=== PATIENT | female | born 1940 | race Caucasian/White ===

== ENCOUNTER → 2016-11-20 | Outpatient (REF) | payer MEDICARE ==
[2016-11-20 15:06] LABS: CALCIUM LEVEL 10.2 MG/DL (8.8-10.2); CREATININE FOR GFR 1.42 MG/DL (0.55-1.02); GLOMERULAR FILTRATION RATE 38.2 (>39); POTASSIUM SERUM 3.8 MEQ/L (3.5-5.1)
== END ==
LOC: M SFHCLERA 11:22
PROVIDERS: ATTEND Family Medicine
DX: I50.20 Unspecified systolic (congestive) heart failure (principal)
CPT/HCPCS: 80048; G0463

== ENCOUNTER → 2017-05-29 | Outpatient (REF) | payer MEDICARE | LOC: M SFHCLERA 11:35 | PROVIDERS: ATTEND Family Medicine | DX: E11.51 Type 2 diabetes mellitus with diabetic peripheral angiopathy without gangrene (principal) | CPT/HCPCS: 83036; G0463 ==

== ENCOUNTER → 2017-07-26 | Outpatient (CLI) | payer MEDICARE ==
[~2017-07-26] MED LIST: LIDOCAINE 1% MDV 20ML VIAL As Ordered ONE
--- NOTE | 2017-07-26 10:25 | REP ---
ULTRASOUND LEFT NECK SOFT TISSUES: Ultrasound of the left neck soft tissues performed in the submandibular region. Adjacent to the submandibular gland is a mildly prominent lymph node measuring 1.8 x 0.7 x 1.0 cm. Lymph node is subsequently biopsied using ultrasound guidance. Signed by Agustín Page MD 07/26/2017 04:57 P
--- NOTE | 2017-07-29 17:59 | REP ---
ULTRASOUND-GUIDED LEFT NECK LYMPH NODE BIOPSY The procedure was performed under the direct supervision of Dr. Page The patient has a history of a left neck lymph node measuring 1.6 x 1.0 cm seen on a previous ultrasound from [facility] performed on 06/13/2017. The risks and benefits of the procedure were explained to the patient and informed consent was obtained. The left neck lymph node was localized using ultrasound guidance. The skin was prepped and draped in a sterile fashion. 1% Xylocaine was used as a local anesthetic. Using ultrasound guidance eight fine-needle aspirations were obtained using 25 gauge needles. The patient tolerated the procedure well and there were no immediate complications. After the appropriate amount of monitored convalescence the patient was discharged from the department. Reviewed by MINGO Wills 07/26/2017 04:55 PSigned by Agustín Page MD 07/29/2017 05:50 P
== END ==
LOC: M RADPRO 08:37
PROVIDERS: ATTEND Nurse Practitioner Family
DX: R59.0 Localized enlarged lymph nodes (principal); Z85.850 Personal history of malignant neoplasm of thyroid; Z95.810 Presence of automatic (implantable) cardiac defibrillator; Z92.3 Personal history of irradiation; Z88.5 Allergy status to narcotic agent; Z79.899 Other long term (current) drug therapy

== ENCOUNTER → 2018-01-20 | Outpatient (REF) | payer MEDICARE | LOC: M SFHCLERA 13:48 | DX: E11.51 Type 2 diabetes mellitus with diabetic peripheral angiopathy without gangrene (principal); Z53.8 Procedure and treatment not carried out for other reasons ==

== ENCOUNTER → 2018-07-07 | Outpatient (REF) | payer MEDICARE ==
[2018-07-07 20:31] LABS: APPEARANCE, URINE CLEAR (CLEAR); BACTERIA, URINE AUTO NEGATIVE (NEGATIVE); BASO # 0.1 10^3/uL (0.0-0.2); BASO % 0.8 % (0.0-1.0); BILIRUBIN, URINE AUTO NEGATIVE (NEGATIVE); BLOOD, URINE BLOOD NEGATIVE (NEGATIVE); COLOR, URINE YELLOW (YELLOW); EOS # 0.2 10^3/uL (0.0-0.50); EOS % 2.7 % (0.0-3.0); GLUCOSE, URINE (UA) AUTO NEGATIVE (NEGATIVE); HEMATOCRIT 39.7 % (36.0-47.0); HEMOGLOBIN 12.6 g/dl (12.0-15.5); IMMATURE GRANULOCYTE % 0.6 % (0-3.0); KETONE, URINE AUTO NEGATIVE (NEGATIVE); LEUKOCYTE ESTERASE, URINE AUTO NEGATIVE (NEGATIVE); LYMPH # 1.5 10^3/uL (1.5-4.5); LYMPH % 23.5 % (24.0-44.0); MEAN CORPUSCULAR HEMOGLOBIN 29.5 pg (27.0-33.0); MEAN CORPUSCULAR HGB CONC 31.7 g/dl (32.0-36.5); MONO # 0.6 10^3/uL (0.0-0.8); MONO % 9.8 % (0.0-5.0); NEUTROPHILS # 4.1 10^3/uL (1.8-7.7); NEUTROPHILS % 62.6 % (36.0-66.0); NITRITE, URINE AUTO NEGATIVE (NEGATIVE); PLATELET COUNT, AUTOMATED 157 10^3/uL (150-450); PROTEIN, URINE AUTO NEGATIVE (NEGATIVE); RBC, URINE AUTO 9 /HPF (0-3); RED BLOOD COUNT 4.27 10^6/uL (4.00-5.40); RED CELL DISTRIBUTION WIDTH 15.7 % (11.5-14.5); SPECIFIC GRAVITY URINE AUTO 1.008 (1.002-1.035); SQUAMOUS EPITHELIAL CELL UR AU 1 /HPF (0-6); UROBILINOGEN, URINE AUTO 0.2 mg/dL (0.0-2.0); WBC, URINE AUTO 3 /HPF (0-3); WHITE BLOOD COUNT 6.6 10^3/uL (4.0-10.0)
[2018-07-07 20:39] LABS: ALBUMIN 3.3 GM/DL (3.2-5.2); ALBUMIN/GLOBULIN RATIO 1.03 (1.00-1.93); ALKALINE PHOSPHATASE 55 U/L (45-117); ALT/SGPT 18 U/L (12-78); ANION GAP 7 MEQ/L (8-16); AST/SGOT 17 U/L (7-37); BILIRUBIN,TOTAL 0.4 MG/DL (0.2-1.0); BLOOD UREA NITROGEN 62 MG/DL (7-18); CALCIUM LEVEL 9.6 MG/DL (8.8-10.2); CARBON DIOXIDE LEVEL 30 MEQ/L (21-32); CHLORIDE LEVEL 102 MEQ/L (98-107); CREATININE FOR GFR 2.49 MG/DL (0.55-1.30); GLOMERULAR FILTRATION RATE 19.9 (>39); GLUCOSE, FASTING 269 MG/DL (70-100); POTASSIUM SERUM 4.5 MEQ/L (3.5-5.1); SODIUM LEVEL 139 MEQ/L (136-145); TOTAL PROTEIN 6.5 GM/DL (6.4-8.2)
== END ==
LOC: M SFHCLERA 12:57
DX: E89.0 Postprocedural hypothyroidism (principal); N30.80 Other cystitis without hematuria; N18.3 Chronic kidney disease, stage 3 (moderate)
CPT/HCPCS: 84443

== ENCOUNTER 2018-07-24 17:54 | Emergency (ER) | payer MEDICARE | END 2018-07-24 18:39 | disposition home or self-care (01) | LOC: M ED 17:54 | DX: T82.898A Other specified complication of vascular prosthetic devices, implants and grafts, initial encounter (principal); Y92.9 Unspecified place or not applicable; Y93.9 Activity, unspecified; I51.9 Heart disease, unspecified; E11.9 Type 2 diabetes mellitus without complications; I10 Essential (primary) hypertension; J30.2 Other seasonal allergic rhinitis; Z79.01 Long term (current) use of anticoagulants; Z79.4 Long term (current) use of insulin; Z79.899 Other long term (current) drug therapy; Z88.6 Allergy status to analgesic agent; Z88.5 Allergy status to narcotic agent ==

== ENCOUNTER 2018-07-27 13:56 | Inpatient (IN) | payer MEDICARE, MEDICAID ==
[2018-07-27] MEDS: NS 1,000 ML IV (14:38)
[2018-07-27 14:41] LABS: BASO % 0.4 % (0.0-1.0); EOS # 0.1 10^3/uL (0.0-0.50); HEMATOCRIT 32.6 % (36.0-47.0); HEMOGLOBIN 10.7 g/dl (12.0-15.5); IMMATURE GRANULOCYTE % 0.5 % (0-3.0); LYMPH # 0.9 10^3/uL (1.5-4.5); LYMPH % 11.1 % (24.0-44.0); MEAN CORPUSCULAR HEMOGLOBIN 29.9 pg (27.0-33.0); MEAN CORPUSCULAR HGB CONC 32.8 g/dl (32.0-36.5); MEAN CORPUSCULAR VOLUME 91.1 fl (80.0-96.0); MONO # 0.8 10^3/uL (0.0-0.8); MONO % 10.3 % (0.0-5.0); NEUTROPHILS # 6.3 10^3/uL (1.8-7.7); NEUTROPHILS % 76.7 % (36.0-66.0); PLATELET COUNT, AUTOMATED 146 10^3/uL (150-450); RED BLOOD COUNT 3.58 10^6/uL (4.00-5.40); RED CELL DISTRIBUTION WIDTH 15.9 % (11.5-14.5); WHITE BLOOD COUNT 8.2 10^3/uL (4.0-10.0)
[2018-07-27 15:00] LABS: INR 1.83; PROTHROMBIN TIME 21.5 SECONDS (12.1-14.4)
[2018-07-27 15:05] LABS: ALBUMIN 3.2 GM/DL (3.2-5.2); ALKALINE PHOSPHATASE 61 U/L (45-117); ALT/SGPT 12 U/L (12-78); ANION GAP 7 MEQ/L (8-16); AST/SGOT 11 U/L (7-37); BILIRUBIN,DIRECT 0.2 MG/DL (0.0-0.2); BILIRUBIN,TOTAL 0.6 MG/DL (0.2-1.0); BLOOD UREA NITROGEN 32 MG/DL (7-18); CALCIUM LEVEL 10.4 MG/DL (8.8-10.2); CARBON DIOXIDE LEVEL 29 MEQ/L (21-32); CHLORIDE LEVEL 104 MEQ/L (98-107); CK-MB VALUE MASS < 1.0 NG/ML (<3.6); CPK CREATINE PHOSPHOKINASE 47 U/L (26-192); CREATININE FOR GFR 2.51 MG/DL (0.55-1.30); GLOMERULAR FILTRATION RATE 19.7 (>39); GLUCOSE, FASTING 341 MG/DL (70-100); MAGNESIUM LEVEL 2.3 MG/DL (1.8-2.4); MB/CK RELATIVE INDEX 2.13 (< OR =4); SODIUM LEVEL 140 MEQ/L (136-145); TOTAL PROTEIN 7.2 GM/DL (6.4-8.2); TROPONIN I 0.03 NG/ML (< 0.10)
[2018-07-27] MEDS: HumuLIN R (REGULAR) INSULIN (NovoLIN R) **100U/ML** PER UNIT IV (15:24)
[2018-07-27] MEDS: ATORVASTATIN 20 MG TAB PO (19:06)
[2018-07-27] MEDS: AMIODARONE HCL 150 MG in APPROPRIATE DILUENT 1 EA IV ×2 (19:07→22:47)
[2018-07-27] MEDS ORDERED: CARVedilol 12.5 MG TAB PO (21:00)
[2018-07-27] MEDS ORDERED: HumaLOG INSULIN (NovoLOG) PER UNIT SC (21:00)
[2018-07-27] MEDS ORDERED: ATORVASTATIN 20 MG TAB PO (21:00)
[2018-07-27] MEDS ORDERED: TORSEMIDE 10 MG TABLET PO (21:00)
[2018-07-27] MEDS: CARVedilol 12.5 MG TAB PO (21:51)
[2018-07-27 22:17] LABS: BEDSIDE GLUCOSE 265 MG/DL (83-110)
[2018-07-27] MEDS: FUROSEMIDE 20 MG/2 ML VIAL (J1940) IV (22:47)
[2018-07-27] MEDS ORDERED: GLUCAGON FOR INJ 1 MG VIAL (J1610) SC ×2 (23:30→23:45)
[2018-07-27] MEDS ORDERED: GLUCOSE 4 GM CHEW TABLET PO ×2 (23:30→23:45)
[2018-07-27] MEDS ORDERED: DEXTROSE 50% 50 ML SYRINGE IV ×2 (23:30→23:45)
[2018-07-27] MEDS: HumaLOG INSULIN (NovoLOG) PER UNIT SC (23:45)
[2018-07-28] MEDS: TAZOBACTAM IV
[2018-07-28] MEDS: PIPERACILLIN IV
[2018-07-28] MEDS: LEVEMIR (INSULIN DETEMIR) 1 UNITS/0.01ML SC ×2 (00:20→08:43)
[2018-07-28] MEDS: APIXABAN 5 MG TAB (ELIQUIS) PO ×2 (00:20→08:42)
[2018-07-28] MEDS: HYDROXYCHLOROQUINE 200 MG TAB PO ×2 (00:50→08:42)
[2018-07-28] MEDS: MIRTAZAPINE 7.5MG PER 1/2 TABLET PO (00:50)
[2018-07-28] MEDS: FUROSEMIDE 20 MG/2 ML VIAL (J1940) IV (01:05)
[2018-07-28] MEDS: NITROGLYCERIN 2% OINT 1 GM *U/D* PKT TOP ×3 (01:06→12:09)
[2018-07-28] MEDS: VANCOMYCIN ORAL SOL 250MG/5ML ORAL SYRINGE PO ×3 (01:06→12:06)
[2018-07-28 01:08] LABS: CPK CREATINE PHOSPHOKINASE 36 U/L (26-192); MB/CK RELATIVE INDEX 3.06 (< OR =4); NT-PRO BNP 13674 PG/ML (<450); TROPONIN I 0.03 NG/ML (< 0.10)
[2018-07-28 04:24] LABS: ANION GAP 7 MEQ/L (8-16); BLOOD UREA NITROGEN 32 MG/DL (7-18); CALCIUM LEVEL 9.8 MG/DL (8.8-10.2); CARBON DIOXIDE LEVEL 27 MEQ/L (21-32); CHLORIDE LEVEL 105 MEQ/L (98-107); CREATININE FOR GFR 2.46 MG/DL (0.55-1.30); GLOMERULAR FILTRATION RATE 20.1 (>39); GLUCOSE, FASTING 315 MG/DL (70-100); POTASSIUM SERUM 4.2 MEQ/L (3.5-5.1); SODIUM LEVEL 139 MEQ/L (136-145)
[2018-07-28] MEDS: LEVOTHYROXINE 137MCG TABLET (0.137MG) PO (06:18)
[2018-07-28] MEDS ORDERED: HumaLOG INSULIN (NovoLOG) PER UNIT SC (07:30)
[2018-07-28] MEDS: HumaLOG INSULIN (NovoLOG) PER UNIT SC ×2 (08:39→12:10)
[2018-07-28] MEDS: ATORVASTATIN 20 MG TAB PO (08:39)
[2018-07-28] MEDS: ALLOPURINOL 100 MG TAB PO (08:39)
[2018-07-28] MEDS: CARVedilol 12.5 MG TAB PO (08:41)
[2018-07-28] MEDS: MAGNESIUM OXIDE 400 MG TAB (MAG-OX) PO (08:42)
[2018-07-28] MEDS: TORSEMIDE 10 MG TABLET PO (08:42)
[2018-07-28] MEDS: GABAPENTIN 100 MG CAP PO (08:42)
[2018-07-28] MEDS: AMIODARONE 200 MG TAB (PACERONE) PO (08:43)
[2018-07-28] MEDS ORDERED: AMIODARONE 200 MG TAB (PACERONE) PO (09:00)
[2018-07-28] MEDS ORDERED: SPIRONOLACTONE 25 MG TAB PO (09:00)
[2018-07-28] MEDS ORDERED: AMIODARONE HCL 150 MG/100 ML PREMIXED BAG (NEXTERONE) As Ordered (09:17)
[2018-07-28] MEDS: AMIODARONE HCL 150 MG in APPROPRIATE DILUENT 1 EA IV (09:25)
[2018-07-28 10:36] LABS: ESTIMATED AVERAGE GLUCOSE 214 MG/DL (60-110); HEMOGLOBIN A1c 9.1 %
[2018-07-28 11:37] LABS: BEDSIDE GLUCOSE 330 MG/DL (83-110)
[2018-07-28] MEDS: LACTOBACILLUS ACIDOPHILUS CAP (BACID) PO (13:51)
== END 2018-07-28 16:57 | disposition short-term general hospital (02) | DRG 309 ==
LOC: M ED 13:56 → M ED INP 18:24 → M ICU 21:25
DX: I47.2 Ventricular tachycardia (principal); I42.0 Dilated cardiomyopathy; I13.0 Hypertensive heart and chronic kidney disease with heart failure and stage 1 through stage 4 chronic kidney disease, or unspecified chronic kidney disease; I50.42 Chronic combined systolic (congestive) and diastolic (congestive) heart failure; N18.4 Chronic kidney disease, stage 4 (severe); I48.0 Paroxysmal atrial fibrillation; E11.22 Type 2 diabetes mellitus with diabetic chronic kidney disease; J44.9 Chronic obstructive pulmonary disease, unspecified; I49.01 Ventricular fibrillation; E78.5 Hyperlipidemia, unspecified; M19.90 Unspecified osteoarthritis, unspecified site; E66.9 Obesity, unspecified; I25.2 Old myocardial infarction; F32.9 Major depressive disorder, single episode, unspecified; I25.10 Atherosclerotic heart disease of native coronary artery without angina pectoris; K57.90 Diverticulosis of intestine, part unspecified, without perforation or abscess without bleeding; E89.0 Postprocedural hypothyroidism; Z90.49 Acquired absence of other specified parts of digestive tract; Z95.810 Presence of automatic (implantable) cardiac defibrillator; Z88.5 Allergy status to narcotic agent; Z88.6 Allergy status to analgesic agent; Z79.01 Long term (current) use of anticoagulants; Z79.4 Long term (current) use of insulin; Z79.899 Other long term (current) drug therapy; Z68.32 Body mass index [BMI] 32.0-32.9, adult

== ENCOUNTER → 2018-08-07 | Outpatient (REF) | payer MEDICARE, MEDICAID ==
[~2018-08-07] MED LIST changes: +ALLO100T PO; +AMIO200T PO; +ATOR1TAB21; +ATOR1TAB21 PO; +CARV12.5 PO; +CARV25TA PO; +CRAN400C PO; +ELIQ5TAB PO; +GABA-1171 PO; +HYDR200T3 PO; +LEVE1INJ5; +LEVE1INJ5 SC; +LEVO137T2 PO; -LIDOCAINE 1% MDV 20ML VIAL As Ordered ONE; +MAGN400C PO; +MAGN400C2 PO; +MAGN400T; +MIRT1TAB PO; +MULTCAP PO; +NOVOINJ3; +NOVOINJ3 SC; +PIPER/TAZOBA; +REFRSOL OD; +SPIR-10 PO; +TORS10TA3; +TORS10TA3 PO; +TRAD5TAB PO; +VANC125C2; +VANC125C2 PO; +[UNRECOGNIZED DRUG - CODE] IV
== END ==
LOC: M SFHCLERA 11:22
PROVIDERS: ATTEND Family Medicine
DX: K57.92 Diverticulitis of intestine, part unspecified, without perforation or abscess without bleeding (principal)

== ENCOUNTER → 2018-10-13 | Outpatient (REF) | payer MEDICARE, MEDICAID ==
[2018-10-13 16:19] LABS: FREE T4 1.53 NG/DL (0.76-1.46); THYROID STIMULATING HORMONE 12.5 uIU/ML (0.358-3.740)
== END ==
LOC: M LABDRAW1 15:23
PROVIDERS: ATTEND Nurse Practitioner Family
DX: E89.0 Postprocedural hypothyroidism (principal)

== ENCOUNTER 2018-12-22 13:53 | Observation (INO) | payer MEDICARE ==
[2018-12-22] MEDS: HYDROXYCHLOROQUINE 200 MG TAB PO SCH (03:00)
[2018-12-22] MEDS: CARBAMIDE PEROXIDE 6.5% OTIC SOLN 15ML AU SCH (03:00)
[~2018-12-22 13:53] MED LIST changes: +ALBU83IN INH; +CETI10TA4 PO; +ELIQ2.5T PO; +MIRA3350 PO; +MIRT1TAB15 PO; -REFRSOL OD; +REFRSOL OU; +SYNT125T PO; -VANC125C2; -VANC125C2 PO; +VANC125C3; +VANC125C3 PO
[2018-12-22] MEDS ORDERED: DULC5TAB PO (14:07)
[2018-12-22 14:57] LABS: BASO # 0.1 10^3/uL (0.0-0.2); BASO % 0.8 % (0.0-1.0); HEMATOCRIT 38.4 % (36.0-47.0); HEMOGLOBIN 12.2 g/dl (12.0-15.5); LYMPH # 1.5 10^3/uL (1.5-4.5); LYMPH % 22.9 % (24.0-44.0); MEAN CORPUSCULAR HEMOGLOBIN 29.4 pg (27.0-33.0); MEAN CORPUSCULAR HGB CONC 31.8 g/dl (32.0-36.5); MEAN CORPUSCULAR VOLUME 92.5 fl (80.0-96.0); MONO # 0.7 10^3/uL (0.0-0.8); MONO % 10.1 % (0.0-5.0); NEUTROPHILS # 4.2 10^3/uL (1.8-7.7); NEUTROPHILS % 64.5 % (36.0-66.0); PLATELET COUNT, AUTOMATED 108 10^3/uL (150-450); RED BLOOD COUNT 4.15 10^6/uL (4.00-5.40); WHITE BLOOD COUNT 6.6 10^3/uL (4.0-10.0)
--- NOTE | 2018-12-22 15:21 | REP ---
Chest one-view HISTORY: chest pain Comparison: 07/27/2018 A minimal increase in interstitial markings is present in the lungs consistent with chronic interstitial change. The cardiac silhouette is enlarged. The pulmonary vasculature is normal in appearance. Catheter is present in the superior vena cava. A cardiac pacemaker is present. Impression: 1. Chronic interstitial change. 2. Cardiomegaly. Electronically Signed by Kris Triplett MD 12/22/2018 03:12 P
[2018-12-22 15:32] LABS: ALBUMIN 3.2 GM/DL (3.2-5.2); ALT/SGPT 44 U/L (12-78); BILIRUBIN,DIRECT < 0.1 MG/DL (0.0-0.2); BILIRUBIN,TOTAL 0.4 MG/DL (0.2-1.0); BLOOD UREA NITROGEN 57 MG/DL (7-18); CALCIUM LEVEL 9.3 MG/DL (8.8-10.2); CARBON DIOXIDE LEVEL 29 MEQ/L (21-32); CHLORIDE LEVEL 106 MEQ/L (98-107); CPK CREATINE PHOSPHOKINASE 89 U/L (26-192); CREATININE FOR GFR 4.74 MG/DL (0.55-1.30); GLOMERULAR FILTRATION RATE 9.5 (>39); GLUCOSE, FASTING 118 MG/DL (70-100); MAGNESIUM LEVEL 2.4 MG/DL (1.8-2.4); MB/CK RELATIVE INDEX 3.37 (< OR =4); POTASSIUM SERUM 6.3 MEQ/L (3.5-5.1); SODIUM LEVEL 138 MEQ/L (136-145); TOTAL PROTEIN 5.8 GM/DL (6.4-8.2); TROPONIN I 0.04 NG/ML (< 0.10)
--- NOTE | 2018-12-22 15:35 | REP ---
CT Head without contrast HISTORY: Dizziness COMPARISON: 07/27/2018 Areas of decreased attenuation are present in the periventricular white matter. This represents small-vessel ischemic disease. There is no intraparenchymal hemorrhage, acute infarct, mass or midline shift. The ventricular system and cortical sulci are dilated consistent with minimal volume loss. There is no extra cerebral collection. There is an old fracture of the left occipital bone. There is no acute fracture. The visualized sinuses are clear. IMPRESSION: 1. Small vessel ischemic disease. 2. Minimal volume loss. Electronically Signed by Kris Triplett MD 12/22/2018 03:26 P
--- NOTE | 2018-12-22 15:41 | ECGEPIP ---
Stationary ECG Study [facility] - ED Test Date: 2018-12-22 Pat Name: DARIELA LUNDBERG Department: Room: - Gender: F Tube Roller: : 1940 Requested By: ALLEY GILLIAM Order Number: [id number] Reading MD: Vilma Mccullough Measurements Intervals Frannie Rate: 80 P: 208 NH: 169 QRS: -77 QRSD: 205 T: 114 QT: 523 QTc: 603 Interpretive Statements ELECTRONIC ATRIAL PACEMAKER ELECTRONIC VENTRICULAR PACEMAKER ABNORMAL RHYTHM ECG Electronically Signed On 12-22-2018 15:41:11 EDT by Vilma Mccullough
[2018-12-22 16:29] LABS: FREE T4 1.23 NG/DL (0.76-1.46)
[2018-12-22] MEDS ORDERED: KEFL500C17 PO ×2 (16:33→20:20)
[2018-12-22] MEDS ORDERED: DEBR6.5S4 OTIC (16:33)
[2018-12-22] MEDS ORDERED: NS 1,000 ML IV SCH (19:15)
[2018-12-22] MEDS ORDERED: PATIROMER SORBITEX CALCIUM 8.4 GM POWDER PACKET (VELTASSA) PO ONE ×3 (19:15→23:00)
--- NOTE | 2018-12-22 19:15 | ED PDOC ---
Post-Departure Follow-Up Dr Anders called requesting pt to be admitted to hospital due to not getting patient ride to outpatient dialysis in time. requests pt receive 30 GM Kayexalate and NS at 50ml/hr. Calling hospitalist to have patient admitted. Kayexalate not available 8.4 GM Veltessa ordered in replacement. Hospitalist consulted and will see pt for admission. ALLEY JONP December 22, 2018 19:15
[2018-12-22] MEDS ORDERED: DEBR6.5S4 OU (20:15)
[2018-12-22] MEDS ORDERED: VENTAER INH (20:17)
[2018-12-22] MEDS ORDERED: BISACODYL 5 MG TAB PO PRN (21:00)
[2018-12-22] MEDS ORDERED: ATORVASTATIN 20 MG TAB PO SCH (21:00)
[2018-12-22] MEDS ORDERED: ACETAMINOPHEN TAB 650MG DOSE (2X325MG) PO PRN (21:00)
[2018-12-22] MEDS ORDERED: MIRALAX *UNIT DOSE* 17GM PACKET PO PRN (21:00)
--- NOTE | 2018-12-22 21:08 | HPEPDOC ---
General Date of Admission Attending Physician: LOTUS RIVERA MD Chief Complaint The patient is a 78-year-old female admitted with a reason for visit of Low Bp. Source: RN/MD Exam Limitations: Hard of hearing Timing/Duration: 24 hours Severity: Moderate Associated Symptoms: Weakness, Dizziness History of Present Illness Patient is a 78-year-old female, past medical history significant for ca rdiomyopathy, chronic systolic heart failure S/P AICD, ESRD on hemodialysis Saturday, Wednesdays and Fridays who was brought to the hospital after she was found to be hypotensive at home with a systolic blood pressure of 88 with complaints of dizziness. In the emergency room, urinalysis was abnormal for leukoesterase 3+, turbid- appearing urine with a high WBC. Potassium level elevated at 6.3. Initial plan was to send patient straight to hemodialysis center after treatment of UTI, given markedly elevated potassium level. However, due to logistics. Patient was unable to make it to the outpatient hemodialysis center on time. The decision was therefore made to monitor patient overnight, treat hyperkalemia with a plan to proceed with hemodialysis in the morning. On evaluation of patient, she complained of persisting dizziness. In the emergency room, she was treated with a bolus of normal saline with improvement of her blood pressure to systolic of low 100s. She also complained of dysuria. Patient denied any chest pain, shortness of breath, nausea, vomiting, abdominal pain. Home Medications Scheduled Allopurinol (Allopurinol) 100 Mg Tab, 100 MG PO DAILY, (Reported) Amiodarone HCl (Amiodarone HCl) 200 Mg Tab, 200 MG PO DAILY, (Reported) Apixaban (Eliquis) 2.5 Mg Tablet, 2.5 MG PO BID, (Reported) Atorvastatin Calcium (Atorvastatin Calcium) 20 Mg Tab, 20 MG PO QHS, (Reported) Carbamide Peroxide (Debrox) 15 Ml Drops, 1 DROP OU BID, (Reported) Carboxymethyl/Glycerin/Poly80 (Refresh Optive Advanced Drops) 1 Claudia Claudia, 1 DROP OU DAILY, (Reported) Carvedilol (Carvedilol) 12.5 Mg Tablet, 12.5 MG PO BID, (Reported) Cephalexin (Keflex) 500 Mg Capsule, 500 MG PO BID, (Reported) PATIENT HAS NOT PICKED UP FROM PHARMACY. TO TAKE X 7 DAYS. Cetirizine HCl (Cetirizine HCl) 10 Mg Tablet, 10 MG PO DAILY, (Reported) Gabapentin (Gabapentin) 100 Mg Cap, 100 MG PO DAILY, (Reported) Hydroxychloroquine Sulfate (Hydroxychloroquine Sulfate) 200 Mg Tab, 200 MG PO BID, (Reported) Insulin Aspart (Novolog Flexpen) 100 Unit/Ml Inj, 1 DOSE SC PC, (Reported) PER SLIDING SCALE Insulin Detemir (Levemir Flextouch) 100 Unit/Ml Inj, 15 UNIT SC BID, (Reported) PATIENT ADJUSTS TO 20 UNITS WHEN NEEDED Levothyroxine Sodium (Synthroid) 125 Mcg Tablet, 125 MCG PO DAILY, (Reported) Mirtazapine (Mirtazapine) 15 Mg Tab.rapdis, 7.5 MG PO QHS, (Reported) Multivitamin (Multivitamins) 1 Cap Cap, 1 CAP PO DAILY, (Reported) Scheduled PRN Albuterol Sulf (Albuterol Sulfate) 2.5 Mg/3 Ml Vial.neb, 2.5 MG INH Q6H PRN for SHORTNESS OF BREATH, (Reported) Albuterol Sulfate (Ventolin Hfa) 18 Gm Hfa.aer.ad, 2 PUFF INH Q4-6HP PRN for SHORTNESS OF BREATH, (Reported) Bisacodyl (Dulcolax) 5 Mg Tablet.dr, 5 MG PO ASDIRECTED PRN for CONSTIPATION, (Reported) Polyethylene Glycol 3350 (Miralax) 119 Gm Powder, 17 GM PO DAILY PRN for CONSTIPATION, (Reported) Allergies Coded Allergies: ENVIROMENTAL (Verified Allergy, Unknown, DUST, MILDEW, 07/27/18) TAPE (Unverified Allergy, Unknown, BLISTERS, 11/20/18) hydromorphone (Verified Adverse Reaction, Mild, ITCHING, 11/20/18) oxycodone (Verified Adverse Reaction, Mild, ITCHING, 11/20/18) Past Medical History Medical History Nonischemic cardiomyopathy Chronic systolic heart failure CAD Proximal atrial fibrillation End-stage renal disease Type 2 diabetes mellitus Gout Urethrorectal fistula Ventricular fibrillation COPD Hypertension Hyperlipidemia Surgical History -Cholecystectomy -Total hysterectomy -Right hip and ankle repair -Pacer ICD placement -Thyroidectomy -Fistula placement Family History Significant Family History: No pertinent family hx Social History Denies tobacco, alcohol, polysubstance abuse A-FIB/CHADSVASC A-FIB History Current/History of A-Fib/PAF?: Yes Current Oral Anticoagulant The: Yes Treatment Treatment ordered: Apixaban Review of Systems Other systems Limited review of systems was completed due to patient's deafness Physical Examination Other physical findings GENERAL: NAD SKIN : Warm, dry intact HEENT: Atraumatic, normocephalic, PERRL, moist mucous membrane CV: Regular rate and rhythm, S1S2, no JVD, BLE edema, distal pulses not palpable RESP: CTAB, no accessory muscle use noted ABDOMEN: BS+ non distended non tender MS: no joint deformities NEURO: Alert and oriented x 3, CN2-12 grossly intact PSYCH: no anxiety or agitation, appropriate mood and affect. Vital Signs Vital Signs Date Time Temp Pulse Resp B/P (MAP) Pulse Ox O2 Delivery O2 Flow Rate FiO2 12/22/18 19:25 97.1 79 14 107/68 (81) 99 Room Air Laboratory Data Labs 24H Laboratory Tests 2 12/22/18 14:37: Immature Granulocyte % (Auto) 1.7, White Blood Count 6.6, Red Blood Count 4.15, Hemoglobin 12.2, Hematocrit 38.4, Mean Corpuscular Volume 92.5, Mean Corpuscular Hemoglobin 29.4, Mean Corpuscular Hemoglobin Concent 31.8L, Red Cell Distribution Width 19.0H, Platelet Count 108L, Neutrophils (%) (Auto) 64.5, Lymphocytes (%) (Auto) 22.9L, Monocytes (%) (Auto) 10.1H, Eosinophils (%) (Auto) 0.0, Basophils (%) (Auto) 0.8, Neutrophils # (Auto) 4.2, Lymphocytes # (Auto) 1.5, Monocytes # (Auto) 0.7, Eosinophils # (Auto) 0.0, Basophils # (Auto) 0.1, Nucleated Red Blood Cells % (auto) 0.0, Anion Gap 3L, Glomerular Filtration Rate 9.5L, Calcium Level 9.3, Magnesium Level 2.4, Aspartate Amino Transf (AST/SGOT) 45H, Alanine Aminotransferase (ALT/SGPT) 44, Alkaline Phosphatase 99, Total Bilirubin 0.4, Direct Bilirubin < 0.1, Total Creatine Kinase 89, Creatine Kinase MB 3.0, Creatine Kinase MB Relative Index 3.37, Troponin I 0.04, Total Protein 5.8L, Albumin 3.2, Albumin/Globulin Ratio 1.23, Thyroid Stimulating Hormone (TSH) 34.500H, Free Thyroxine 1.23 12/22/18 15:08: Urine Color MAYE, Urine Appearance TURBIDH, Urine pH 5.0, Urine Specific [place] 1.016, Urine Protein 2+H, Urine Glucose (UA) NEGATIVE, Urine Ketones NEGATIVE, Urine Blood 1+H, Urine Nitrite NEGATIVE, Urine Bilirubin NEGATIVE, Urine Urobilinogen 0.2, Urine Leukocyte Esterase 3+H, Urine WBC (Auto) TNTCH, Urine RBC (Auto) 91H, Urine Hyaline Casts (Auto) 26, Urine Bacteria (Auto) 2+H, Urine Squamous Epithelial Cells 9, Urine Yeast-Like Cells (Auto) LARGEH, Urine Sperm (Auto) CBC/BMP Laboratory Tests 12/22/18 14:37 Red Blood Count 4.15, Mean Corpuscular Volume 92.5, Mean Corpuscular Hemoglobin 29.4, Mean Corpuscular Hemoglobin Concent 31.8 L, Red Cell Distribution Width 19.0 H, Neutrophils (%) (Auto) 64.5, Lymphocytes (%) (Auto) 22.9 L, Monocytes (%) (Auto) 10.1 H, Eosinophils (%) (Auto) 0.0, Basophils (%) (Auto) 0.8, Neutrophils # (Auto) 4.2, Lymphocytes # (Auto) 1.5, Monocytes # (Auto) 0.7, Eosinophils # (Auto) 0.0, Basophils # (Auto) 0.1 Microbiology Microbiology 12/22/18 Urine Culture, Received Pending Assessment/Plan Hyperkalemia -In a patient with end-stage renal disease on hemodialysis -Hemodialysis days are Mondays, Wednesdays, Saturday -Has not had hemodialysis since Saturday -Discussed with patient's oracle reports developer for input -Recommend patient receive 16.8 g Veltassa, now with repeat dosing in 6 hours -Monitor potassium levels for response to therapy -Hemodialysis in the a.m. End-stage renal disease -Continue hemodialysis management per nephrology -Renal diet -Fluid restriction Urinary tract infection -Continue antibiotic therapy initiated in the emergency room -Follow culture findings Paroxysmal atrial fibrillation -Currently on anticoagulation therapy-continue -Rate is controlled -Admit with telemetry monitoring due to hyperkalemia and underlying comorbidities Hypertension -Currently presenting with hypotension -Hold coreg and other hypertensive medications except antiarrhythmics -Patient is S/P bolus with improvement of her blood pressure DVT/GI prophylaxis -fully anticoagulated on eliquis -Proton pump inhibitor Plan / VTE VTE Prophylaxis Ordered?: Yes MARGARET BOYER December 22, 2018 21:08
[2018-12-22] MEDS ORDERED: GLUCAGON FOR INJ 1 MG VIAL (J1610) SC PRN (21:30)
[2018-12-22] MEDS ORDERED: GLUCOSE 4 GM CHEW TABLET PO PRN (21:30)
[2018-12-22] MEDS ORDERED: DEXTROSE 50% 50 ML SYRINGE IV PRN (21:30)
[2018-12-22 23:15] VITALS: BP 118/74
[2018-12-22] MEDS: APIXABAN 2.5 MG TAB (ELIQUIS) PO SCH (23:58)
[2018-12-22] MEDS: CEPHALEXIN 500 MG CAP PO SCH (23:59)
[2018-12-23 00:04] LABS: ALBUMIN 2.9 GM/DL (3.2-5.2); BILIRUBIN,TOTAL 0.3 MG/DL (0.2-1.0); CALCIUM LEVEL 9.1 MG/DL (8.8-10.2); CREATININE FOR GFR 4.77 MG/DL (0.55-1.30); GLOMERULAR FILTRATION RATE 9.4 (>39); TOTAL PROTEIN 6.2 GM/DL (6.4-8.2)
[2018-12-23] MEDS ORDERED: PATIROMER SORBITEX CALCIUM 8.4 GM POWDER PACKET (VELTASSA) PO ONE (05:00)
[2018-12-23 06:00] VITALS: BP 110/65
[2018-12-23] MEDS ORDERED: LEVOTHYROXINE 125MCG TABLET (0.125MG) PO SCH (06:00)
[2018-12-23 06:06] LABS: HEMATOCRIT 37.9 % (36.0-47.0); HEMOGLOBIN 11.8 g/dl (12.0-15.5); MEAN CORPUSCULAR HEMOGLOBIN 28.6 pg (27.0-33.0); MEAN CORPUSCULAR HGB CONC 31.1 g/dl (32.0-36.5); MEAN CORPUSCULAR VOLUME 91.8 fl (80.0-96.0); PLATELET COUNT, AUTOMATED 104 10^3/uL (150-450); RED BLOOD COUNT 4.13 10^6/uL (4.00-5.40); WHITE BLOOD COUNT 6.2 10^3/uL (4.0-10.0)
[2018-12-23 06:29] LABS: ALBUMIN 2.9 GM/DL (3.2-5.2); BILIRUBIN,TOTAL 0.3 MG/DL (0.2-1.0); CALCIUM LEVEL 9.4 MG/DL (8.8-10.2); CREATININE FOR GFR 4.75 MG/DL (0.55-1.30); GLOMERULAR FILTRATION RATE 9.4 (>39); POTASSIUM SERUM 5.1 MEQ/L (3.5-5.1); TOTAL PROTEIN 5.7 GM/DL (6.4-8.2)
[2018-12-23] MEDS: APIXABAN 2.5 MG TAB (ELIQUIS) PO SCH (06:58)
[2018-12-23] MEDS: CEPHALEXIN 500 MG CAP PO SCH (06:59)
[2018-12-23] MEDS: HYDROXYCHLOROQUINE 200 MG TAB PO SCH (06:59)
[2018-12-23] MEDS: CARBAMIDE PEROXIDE 6.5% OTIC SOLN 15ML AU SCH (06:59)
[2018-12-23] MEDS: HumaLOG INSULIN (NovoLOG) PER UNIT SC SCH ×2 (07:30→12:00)
[2018-12-23] MEDS ORDERED: AMIODARONE 200 MG TAB (PACERONE) PO SCH (09:00)
[2018-12-23] MEDS ORDERED: ALLOPURINOL 100 MG TAB PO SCH (09:00)
[2018-12-23] MEDS ORDERED: GABAPENTIN 100 MG CAP PO SCH (09:00)
[2018-12-23] MEDS ORDERED: CETIRIZINE (ZyrTEC) 10 MG TAB PO SCH (09:00)
[2018-12-23] MEDS ORDERED: HEPARIN 1,000 UNITS/ML 10ML VIAL (FOR RADIOLOGY& DIALYSIS ONLY) IV ONE (09:30)
[2018-12-23] MEDS ORDERED: HEPARIN 1,000 UNITS/ML 10ML VIAL (FOR RADIOLOGY& DIALYSIS ONLY) XX ONE (09:30)
[2018-12-23] MEDS ORDERED: FLUCONAZOLE 100 MG TAB PO ONE (11:30)
--- NOTE | 2018-12-23 11:36 | IPN ---
DATE OF VISIT: 12/23/2018 Mrs. Joel is seen this morning during dialysis. She was admitted last evening due to dizziness, generalized weakness, and hyperkalemia. Her potassium level was 6.4, and she was treated with Veltassa through the night. She is still feeling very weak and is being dialyzed this morning due to hyperkalemia. Her potassium level has already come down to 5.1. She missed her dialysis treatment yesterday. On physical examination, temperature 97.4 degrees Fahrenheit, heart rate 82 per minute, and respiratory rate 18 per minute. Blood pressure 110/65 mmHg and oxygen saturation 94% on 2 liters oxygen. Head is atraumatic. She has kyphosis of her neck and upper chest. Neck veins are difficult to be assessed. Heart sounds are regular. Lungs sound clear to auscultation. Abdomen: Soft and nontender, and bowel sounds are present. Extremities: Without any cyanosis or clubbing. Lower extremity edema is 2+. Today's laboratories show: Sodium 137, potassium 5.1, CO2 27, BUN 58, and creatinine 4.75. WBC count is 6.2, hemoglobin 11.8, and hematocrit 37.9. Urinalysis showed 3+ leukocyte esterase, too numerous to count WBCs, and 91 RBCs. PROBLEMS: 1. End-stage renal disease. The patient is being dialyzed this morning, and we are trying to remove about 1 liter of fluid as tolerated. Her blood pressure is still borderline low. 2. Hyperkalemia. She was treated with medications through the night and received two doses of Veltassa. Her potassium level is already down to 5.1. We are using 2.0 mEq potassium bath for dialysis today. 3. Hypotension. I am concerned about the possibility of urinary tract infection (UTI) contributing to her hypotension. I would recommend to treat her with appropriate antibiotics. She has been started on Keflex 500 mg twice a day pending urine culture. 4. Congestive heart failure. Her volume status is decompensated, but we are unable to remove fluid aggressively due to low blood pressure. We will see how she does with the next dialysis treatment.
--- NOTE | 2018-12-23 12:25 | IPNPDOC ---
Subjective Date Seen The patient was seen on 12/23/18. Subjective Chief Complaint/HPI Patient is comfortable, feeling better than previously. On admission General: Denies: ROS Unobtainable, Chills, Night Sweats, Fatigue, Malaise, Normal Appetite, Other Symptoms Constitutional: Denies: Chills, Fever, Malaise, Night Sweats, Weakness, Fatigue, Weight Loss, Lethargy, Other Eyes: Denies: Pain, Vision change, Conjunctivae inflammation, Eyelid inflammation, Redness, Other ENT: Denies: Head Aches, Ear Pain, Dysphagia, Sinus Congestion, Post Nasal Drip, Sore Throat, Epistaxis, Other Symptoms Skin: Denies: Rash, Lesions, Jaundice, Bruising, Itching, Dry, Breakdown, Nail Changes, Other Pulmonary: Denies: Dyspnea, Cough, Pleuritic Chest Pain, Other Symptoms Cardiovascular: Denies: Chest Pain, Palpitations, Orthopnea, Paroxysmal Noc. Dyspnea, Edema, Lt Headedness, Other Symptoms Gastrointestinal: Denies: Nausea, Vomiting, Abdominal Pain, Diarrhea, Consti pation, Melena, Hematochezia, Other Symptoms Genitourinary: Denies: Dysuria, Frequency, Incontinence, Hematuria, Retention, Other Symptoms Hematologic: Denies: Bruising, Bleeding Excessively, Petecchia, Purpura, Enlarged Lymph Nodes, Other Hematologic Endocrine: Denies: Polydipsia, Polyphagia, Polyuria, Heat Intolerance, Cold Intolerance, Other Endocrine Sx Musculoskeletal: Denies: Neck Pain, Back Pain, Shoulder Pain, Arm Pain, Hand Pain, Leg Pain, Foot Pain, Joint Pain, Muscle Pain, Spasms, Other Symptoms Neurological: Denies: Weakness, Numbness, Incoordination, Change in speech, Co nfusion, Seizures, Other Symptoms Psych: Denies: Mood Normal, Anxiety, Depression, Memory Issues, Thoughts of Self Harm, Anger, Thoughts of Harming Other, Other Psych Objective Physical Examination General Exam: Positive: Alert, Cooperative Eye Exam: Positive: PERRLA, Conjunctiva & lids normal Neck Exam: Positive: Supple, JVD Chest Exam: Positive: Clear to auscultation, Normal air movement Heart Exam: Positive: Rate Normal, Normal S1, Normal S2 Abdomen Exam: Positive: Normal bowel sounds, Soft Extremity Exam: Positive: Normal pulses Skin Exam: Positive: Nl turgor and temperature Neuro Exam: Positive: Normal Gait, Normal Speech Psych Exam: Positive: Mental status NL A-FIB/CHADSVASC A-FIB History Current/History of A-Fib/PAF?: No Assessment /Plan Problems (1) Hyperkalemia Status: Acute Problem Text: Corrected ON Scheduled for HD today (2) ESRD (end stage renal disease) on dialysis Status: Acute Problem Text: ESRD is scheduled today Acid. We'll discharge him with HD today Plan/VTE VTE Prophylaxis Ordered?: Yes VS, I&O, 24H, Fishbone Vital Signs/I&O Vital Signs Date Time Temp Pulse Resp B/P (MAP) Pulse Ox O2 Delivery O2 Flow Rate FiO2 12/23/18 06:00 97.4 82 18 110/65 (80) 94 12/22/18 21:15 Room Air I&O- Last 24 Hours up to 6 AM 12/23/18 06:00 Intake Total 540 ml Output Total 210 ml Balance 330 ml Laboratory Data 24H LABS Laboratory Tests 2 12/22/18 14:37: Immature Granulocyte % (Auto) 1.7, White Blood Count 6.6, Red Blood Count 4.15, Hemoglobin 12.2, Hematocrit 38.4, Mean Corpuscular Volume 92.5, Mean Corpuscular Hemoglobin 29.4, Mean Corpuscular Hemoglobin Concent 31.8L, Red Cell Distributi on Width 19.0H, Platelet Count 108L, Neutrophils (%) (Auto) 64.5, Lymphocytes (%) (Auto) 22.9L, Monocytes (%) (Auto) 10.1H, Eosinophils (%) (Auto) 0.0, Basophils (%) (Auto) 0.8, Neutrophils # (Auto) 4.2, Lymphocytes # (Auto) 1.5, Monocytes # (Auto) 0.7, Eosinophils # (Auto) 0.0, Basophils # (Auto) 0.1, Nucleated Red Blood Cells % (auto) 0.0, Anion Gap 3L, Glomerular Filtration Rate 9.5L, Calcium Level 9.3, Magnesium Level 2.4, Aspartate Amino Transf (AST/SGOT) 45H, Alanine Aminotransferase (ALT/SGPT) 44, Alkaline Phosphatase 99, Total Bilirubin 0.4, Direct Bilirubin < 0.1, Total Creatine Kinase 89, Creatine Kinase MB 3.0, Creatine Kinase MB Relative Index 3.37, Troponin I 0.04, Total Protein 5.8L, Albumin 3.2, Albumin/Globulin Ratio 1.23, Thyroid Stimulating Hormone (TSH) 34.500H, Free Thyroxine 1.23 12/22/18 15:08: Urine Color MAYE, Urine Appearance TURBIDH, Urine pH 5.0, Urine Specific [place] 1.016, Urine Protein 2+H, Urine Glucose (UA) NEGATIVE, Urine Ketones NEGATIVE, Urine Blood 1+H, Urine Nitrite NEGATIVE, Urine Bilirubin NEGATIVE, Urine Urobilinogen 0.2, Urine Leukocyte Esterase 3+H, Urine WBC (Auto) TNTCH, Urine RBC (Auto) 91H, Urine Hyaline Casts (Auto) 26, Urine Bacteria (Auto) 2+H, Urine Squamous Epithelial Cells 9, Urine Yeast-Like Cells (Auto) LARGEH, Urine Sperm (Auto) 12/22/18 23:17: Anion Gap 6L, Glomerular Filtration Rate 9.4L, Calcium Level 9.1, Aspartate Amino Transf (AST/SGOT) 25, Alanine Aminotransferase (ALT/SGPT) 37, Alkaline Phosphatase 100, Total Bilirubin 0.3, Total Protein 6.2L, Albumin 2.9L, Albumin/Globulin Ratio 0.88L, Blood Urea Nitrogen 57H, Creatinine 4.77H, Sodium Level 138, Potassium Level 6.0H, Chloride Level 103, Carbon Dioxide Level 29 12/23/18 05:37: Nucleated Red Blood Cells % (auto) 0.0, Anion Gap 7L, Glomerular Filtration Rate 9.4L, Calcium Level 9.4, Aspartate Amino Transf (AST/SGOT) 26, Alanine Aminotransferase (ALT/SGPT) 34, Alkaline Phosphatase 95, Total Bilirubin 0.3, Total Protein 5.7L, Albumin 2.9L, Albumin/Globulin Ratio 1.04, Blood Urea Nitrogen 58H, Creatinine 4.75H, Sodium Level 137, Potassium Level 5.1, Chloride Level 103, Carbon Dioxide Level 27 CBC/BMP Laboratory Tests 12/22/18 14:37 Red Blood Count 4.15, Mean Corpuscular Volume 92.5, Mean Corpuscular Hemoglobin 29.4, Mean Corpuscular Hemoglobin Concent 31.8 L, Red Cell Distribution Width 19.0 H, Neutrophils (%) (Auto) 64.5, Lymphocytes (%) (Auto) 22.9 L, Monocytes (%) (Auto) 10.1 H, Eosinophils (%) (Auto) 0.0, Basophils (%) (Auto) 0.8, Neutrophils # (Auto) 4.2, Lymphocytes # (Auto) 1.5, Monocytes # (Auto) 0.7, Eosinophils # (Auto) 0.0, Basophils # (Auto) 0.1 12/22/18 23:17 Calcium Level 9.1, Aspartate Amino Transf (AST/SGOT) 25, Alanine Aminotransferase (ALT/SGPT) 37, Alkaline Phosphatase 100, Total Bilirubin 0.3, Total Protein 6.2 L, Albumin 2.9 L 12/23/18 05:37 Red Blood Count 4.13, Mean Corpuscular Volume 91.8, Mean Corpuscular Hemoglobin 28.6, Mean Corpuscular Hemoglobin Concent 31.1 L, Red Cell Distribution Width 19.1 H, Calcium Level 9.4, Aspartate Amino Transf (AST/SGOT) 26, Alanine Aminotransferase (ALT/SGPT) 34, Alkaline Phosphatase 95, Total Bilirubin 0.3, Total Protein 5.7 L, Albumin 2.9 L Microbiology Microbiology 12/22/18 Urine Culture, Received Pending ZENAIDA BATES MD December 23, 2018 12:25
[2018-12-23] MEDS ORDERED: cefTRIAXone SOD 1 GM VIAL (J0696) IM SCH (12:30)
[2018-12-23 14:00] VITALS: BP 101/60
--- NOTE | 2018-12-23 14:39 | DS.PDOC ---
Discharge Summary General Date of Admission December 22, 2018 at 20:48 Date of Discharge 12/23/18 Attending Physician: ZENAIDA BATES MD Discharge Summary PROCEDURES PERFORMED DURING STAY: None. ADMITTING DIAGNOSES: 1. Hyperkalemia. DISCHARGE DIAGNOSES: 1. Hyperkalemia, end-stage renal disease on hemodialysis. COMPLICATIONS/CHIEF COMPLAINT: Hyperkalemia. HISTORY OF PRESENT ILLNESS: Patient is a 78-year-old female, past medical history significant for cardiomyopathy, chronic systolic heart failure S/P AICD, ESRD on hemodialysis Saturday, Wednesdays and Fridays who was brought to the hospital after she was found to be hypotensive at home with a systolic blood pressure of 88 with complaints of dizziness. In the emergency room, urinalysis was abnormal for leukoesterase 3+, turbid- appearing urine with a high WBC. Potassium level elevated at 6.3. Initial plan was to send patient straight to hemodialysis center after treatment of UTI, given markedly elevated potassium level. However, due to logistics. Patient was unable to make it to the outpatient hemodialysis center on time. The decision was therefore made to monitor patient overnight, treat hyperkale jeannine with a plan to proceed with hemodialysis in the morning. On evaluation of patient, she complained of persisting dizziness. In the emergency room, she was treated with a bolus of normal saline with improvement of her blood pressure to systolic of low 100s. She also complained of dysuria. Patient denied any chest pain, shortness of breath, nausea, vomiting, abdominal pain. . HOSPITAL COURSE: Patient was admitted with the diagnosis of hyperkalemia. She was started on K oxalate inpatient. Patient was admitted to observation. I'll double reason. Hyperkalemia was corrected with the above measures. Since patient had missed her dialysis. He was taken to hemodialysis unit and had that HD done. Patient is stable. No more dizziness. Blood pressure is stable she can be discharged back home and follow with a substance addiction coordinator as an outpatient. DISCHARGE MEDICATIONS: Please see below. ALLERGIES: Please see below. PHYSICAL EXAMINATION ON DISCHARGE: VITAL SIGNS: Please see below. GENERAL: Within normal limits HEENT: PERRLA NECK: Supple CARDIOVASCULAR EXAMINATION: S1, S2, regular RESPIRATORY EXAMINATION: Clear to A&P ABDOMINAL EXAMINATION:. Benign EXTREMITIES: No clubbing, cyanosis or edema SKIN: Normal NEUROLOGICAL EXAMINATION: , No deficit PSYCHIATRIC EXAMINATION: LABORATORY DATA: Please see below. IMAGING: As above PROGNOSIS: good ACTIVITY: As tolerated. DIET: Renal diet DISCHARGE PLAN: Home DISPOSITION: Home DISCHARGE INSTRUCTIONS: 1. As above. ITEMS TO FOLLOWUP ON ON OUTPATIENT: 1. As above. DISCHARGE CONDITION: Stable. TIME SPENT ON DISCHARGE: Greater than 35 minutes. Vital Signs/I&Os Vital Signs Date Time Temp Pulse Resp B/P (MAP) Pulse Ox O2 Delivery O2 Flow Rate FiO2 12/23/18 14:00 96.7 80 20 101/60 (74) 97 12/22/18 21:15 Room Air I&O- Last 24 Hours up to 6 AM 12/23/18 06:00 Intake Total 540 ml Output Total 210 ml Balance 330 ml Laboratory Data Labs 24H Laboratory Tests 2 12/22/18 14:37: Immature Granulocyte % (Auto) 1.7, White Blood Count 6.6, Red Blood Count 4.15, Hemoglobin 12.2, Hematocrit 38.4, Mean Corpuscular Volume 92.5, Mean Corpuscular Hemoglobin 29.4, Mean Corpuscular Hemoglobin Concent 31.8L, Red Cell Distribution Width 19.0H, Platelet Count 108L, Neutrophils (%) (Auto) 64.5, Lymphocytes (%) (Auto) 22.9L, Monocytes (%) (Auto) 10.1H, Eosinophils (%) (Auto) 0.0, Basophils (%) (Auto) 0.8, Neutrophils # (Auto) 4.2, Lymphocytes # (Auto) 1.5, Monocytes # (Auto) 0.7, Eosinophils # (Auto) 0.0, Basophils # (Auto) 0.1, Nucleated Red Blood Cells % (auto) 0.0, Anion Gap 3L, Glomerular Filtration Rate 9.5L, Calcium Level 9.3, Magnesium Level 2.4, Aspartate Amino Transf (AST/SGOT) 45H, Alanine Aminotransferase (ALT/SGPT) 44, Alkaline Phosphatase 99, Total Bilirubin 0.4, Direct Bilirubin < 0.1, Total Creatine Kinase 89, Creatine Kinase MB 3.0, Creatine Kinase MB Relative Index 3.37, Troponin I 0.04, Total Protein 5.8L, Albumin 3.2, Albumin/Globulin Ratio 1.23, Thyroid Stimulating Hormone (TSH) 34.500H, Free Thyroxine 1.23 12/22/18 15:08: Urine Color MAYE, Urine Appearance TURBIDH, Urine pH 5.0, Urine Specific [place] 1.016, Urine Protein 2+H, Urine Glucose (UA) NEGATIVE, Urine Ketones NEGATIVE, Urine Blood 1+H, Urine Nitrite NEGATIVE, Urine Bilirubin NEGATIVE, Urine Urobilinogen 0.2, Urine Leukocyte Esterase 3+H, Urine WBC (Auto) TNTCH, Urine RBC (Auto) 91H, Urine Hyaline Casts (Auto) 26, Urine Bacteria (Auto) 2+H, Urine Squamous Epithelial Cells 9, Urine Yeast-Like Cells (Auto) LARGEH, Urine Sperm (Auto) 12/22/18 23:17: Anion Gap 6L, Glomerular Filtration Rate 9.4L, Calcium Level 9.1, Aspartate Amino Transf (AST/SGOT) 25, Alanine Aminotransferase (ALT/SGPT) 37, Alkaline Phosphatase 100, Total Bilirubin 0.3, Total Protein 6.2L, Albumin 2.9L, Albumin/Globulin Ratio 0.88L, Blood Urea Nitrogen 57H, Creatinine 4.77H, Sodium Level 138, Potassium Level 6.0H, Chloride Level 103, Carbon Dioxide Level 29 12/23/18 05:37: Nucleated Red Blood Cells % (auto) 0.0, Anion Gap 7L, Glomerular Filtration Rate 9.4L, Calcium Level 9.4, Aspartate Amino Transf (AST/SGOT) 26, Alanine Aminotransferase (ALT/SGPT) 34, Alkaline Phosphatase 95, Total Bilirubin 0.3, Total Protein 5.7L, Albumin 2.9L, Albumin/Globulin Ratio 1.04, Blood Urea Nitrogen 58H, Creatinine 4.75H, Sodium Level 137, Potassium Level 5.1, Chloride Level 103, Carbon Dioxide Level 27 12/23/18 13:10: Bedside Glucose (Misc Panel) 173H CBC/BMP Laboratory Tests 12/22/18 14:37 Red Blood Count 4.15, Mean Corpuscular Volume 92.5, Mean Corpuscular Hemoglobin 29.4, Mean Corpuscular Hemoglobin Concent 31.8 L, Red Cell Distribution Width 19.0 H, Neutrophils (%) (Auto) 64.5, Lymphocytes (%) (Auto) 22.9 L, Monocytes (%) (Auto) 10.1 H, Eosinophils (%) (Auto) 0.0, Basophils (%) (Auto) 0.8, Neutrophils # (Auto) 4.2, Lymphocytes # (Auto) 1.5, Monocytes # (Auto) 0.7, Eosinophils # (Auto) 0.0, Basophils # (Auto) 0.1 12/22/18 23:17 Calcium Level 9.1, Aspartate Amino Transf (AST/SGOT) 25, Alanine Aminotransferase (ALT/SGPT) 37, Alkaline Phosphatase 100, Total Bilirubin 0.3, Total Protein 6.2 L, Albumin 2.9 L 12/23/18 05:37 Red Blood Count 4.13, Mean Corpuscular Volume 91.8, Mean Corpuscular Hemoglobin 28.6, Mean Corpuscular Hemoglobin Concent 31.1 L, Red Cell Distribution Width 19.1 H, Calcium Level 9.4, Aspartate Amino Transf (AST/SGOT) 26, Alanine Aminotransferase (ALT/SGPT) 34, Alkaline Phosphatase 95, Total Bilirubin 0.3, Total Protein 5.7 L, Albumin 2.9 L FSBS Laboratory Tests Test 12/23/18 13:10 Range/Units Bedside Glucose (Misc Panel) 173 83-110 MG/DL Microbiology Microbiology 12/22/18 Urine Culture, Received Pending Discharge Medications Scheduled Allopurinol (Allopurinol) 100 Mg Tab, 100 MG PO DAILY, (Reported) Amiodarone HCl (Amiodarone HCl) 200 Mg Tab, 200 MG PO DAILY, (Reported) Apixaban (Eliquis) 2.5 Mg Tablet, 2.5 MG PO BID, (Reported) Atorvastatin Calcium (Atorvastatin Calcium) 20 Mg Tab, 20 MG PO QHS, (Reported) Carbamide Peroxide (Debrox) 15 Ml Drops, 1 DROP OU BID, (Reported) Carboxymethyl/Glycerin/Poly80 (Refresh Optive Advanced Drops) 1 Claudia Claudia, 1 DROP OU DAILY, (Reported) Carvedilol (Carvedilol) 12.5 Mg Tablet, 12.5 MG PO BID, (Reported) Cephalexin (Keflex) 500 Mg Capsule, 500 MG PO BID, (Reported) PATIENT HAS NOT PICKED UP FROM PHARMACY. TO TAKE X 7 DAYS. Cetirizine HCl (Cetirizine HCl) 10 Mg Tablet, 10 MG PO DAILY, (Reported) Gabapentin (Gabapentin) 100 Mg Cap, 100 MG PO DAILY, (Reported) Hydroxychloroquine Sulfate (Hydroxychloroquine Sulfate) 200 Mg Tab, 200 MG PO BID, (Reported) Insulin Aspart (Novolog Flexpen) 100 Unit/Ml Inj, 1 DOSE SC PC, (Reported) PER SLIDING SCALE Insulin Detemir (Levemir Flextouch) 100 Unit/Ml Inj, 15 UNIT SC BID, (Reported) PATIENT ADJUSTS TO 20 UNITS WHEN NEEDED Levothyroxine Sodium (Synthroid) 125 Mcg Tablet, 125 MCG PO DAILY, (Reported) Mirtazapine (Mirtazapine) 15 Mg Tab.rapdis, 7.5 MG PO QHS, (Reported) Multivitamin (Multivitamins) 1 Cap Cap, 1 CAP PO DAILY, (Reported) Scheduled PRN Albuterol Sulf (Albuterol Sulfate) 2.5 Mg/3 Ml Vial.neb, 2.5 MG INH Q6H PRN for SHORTNESS OF BREATH, (Reported) Albuterol Sulfate (Ventolin Hfa) 18 Gm Hfa.aer.ad, 2 PUFF INH Q4-6HP PRN for SHORTNESS OF BREATH, (Reported) Bisacodyl (Dulcolax) 5 Mg Tablet.dr, 5 MG PO ASDIRECTED PRN for CONSTIPATION, (Reported) Polyethylene Glycol 3350 (Miralax) 119 Gm Powder, 17 GM PO DAILY PRN for CONSTIPATION, (Reported) Allergies Coded Allergies: ENVIROMENTAL (Verified Allergy, Unknown, DUST, MILDEW, 07/27/18) TAPE (Unverified Allergy, Unknown, BLISTERS, 11/20/18) hydromorphone (Verified Adverse Reaction, Mild, ITCHING, 11/20/18) oxycodone (Verified Adverse Reaction, Mild, ITCHING, 11/20/18) ZENAIDA BATES MD December 23, 2018 14:39
[2018-12-23] MEDS ORDERED: cefTRIAXone SOD 1 GM in D5W MINI-BAG PLUS 50 ML IV SCH (16:00)
[2018-12-23] MEDS ORDERED: HumaLOG INSULIN (NovoLOG) PER UNIT SC SCH (21:00)
[2018-12-24] MEDS ORDERED: FLUCONAZOLE 100 MG TAB PO SCH (09:00)
== END 2018-12-23 15:40 | disposition home or self-care (01) ==
LOC: EDBD 13:53 → M ED 13:53 → M ED INP 20:48 → M MSPAV 23:04
PROVIDERS: ADMIT Internal Medicine; ATTEND Internal Medicine
DX: E87.5 Hyperkalemia (principal); N18.6 End stage renal disease; I42.9 Cardiomyopathy, unspecified; I50.22 Chronic systolic (congestive) heart failure; Z95.810 Presence of automatic (implantable) cardiac defibrillator; I48.0 Paroxysmal atrial fibrillation; E11.9 Type 2 diabetes mellitus without complications; I25.10 Atherosclerotic heart disease of native coronary artery without angina pectoris; M10.9 Gout, unspecified; J44.9 Chronic obstructive pulmonary disease, unspecified; E78.49 Other hyperlipidemia; Z79.4 Long term (current) use of insulin; Z79.899 Other long term (current) drug therapy; Z88.5 Allergy status to narcotic agent; Z79.01 Long term (current) use of anticoagulants; R42 Dizziness and giddiness
CPT/HCPCS: 36415; 69210; 70450; 71045; 80053; 81001; 82550; 82553; 83735; 84439; 84443; 84484; 85025; 85027; 87088; 87186; 93005; 93041; 94760; 97161; 97530; 99285; G0257; G0378

== ENCOUNTER → 2019-02-19 | Outpatient (CLI) | payer MEDICARE ==
[~2019-02-19] MED LIST changes: +DEBR6.5S4 OTIC; +DEBR6.5S4 OU; +DULC5TAB PO; +KEFL500C17 PO; +VENTAER INH
--- NOTE | 2019-02-19 16:55 | REP ---
Bilateral upper extremity arterial and venous Doppler ultrasound: History: Vein mapping study. Pre AV fistula. End-stage renal disease. Findings: There is no evidence of upper extremity venous thrombosis. There is some atherosclerotic plaquing in the radial and ulnar arteries bilaterally. Right upper extremity venous diameter chart: Upper humerus basilic 2.8 mm, cephalic 2.2 mm Lower humerus basilic 1.3 mm, cephalic 1.7 mm Antecubital basilic 1.3 mm, cephalic 1.2 mm Upper forearm basilic 1.3 mm, cephalic 1.0 mm Lower forearm basilic 1.0 mm, cephalic 1.0 mm Median cubital 2.9 mm Left upper extremity venous diameter chart: Upper humerus basilic 2.6 mm, cephalic 1.5 mm Lower humerus basilic 2.6 mm, cephalic 1.0 mm Antecubital basilic 0.7 mm, cephalic 1.0 mm Upper forearm basilic 2.0 mm, cephalic 1.0 mm Lower forearm basilic 1.5 mm cephalic 1.3 mm Median cubital 1.7 mm Right upper extremity arterial Doppler velocity and diameter chart: Right axillary artery PSV 33 cm/S, 7 mm Brachial artery 61 cm/S, 4.0 mm Radial artery 21 cm/S, 2 mm Ulnar artery 21 cm/S, 2 mm Left upper extremity arterial Doppler velocity and diameter chart: Left axillary artery PSV 37 cm/S, 5.6 mm Brachial artery 50 cm/S, 4.6 mm Radial artery 27 cm/S, 1.9 mm Ulnar artery 25 cm/S, 1.8 mm Electronically Signed by Brad Thomas MD 02/19/2019 04:46 P
== END ==
LOC: M RAD 13:26
PROVIDERS: ATTEND Internal Medicine Nephrology
DX: Z01.818 Encounter for other preprocedural examination (principal); N18.6 End stage renal disease; Z99.2 Dependence on renal dialysis

== ENCOUNTER 2019-05-25 11:43 | Inpatient (IN) | payer MEDICARE ==
[~2019-05-25] VITALS: Ht 154.9 cm; Wt 68.2 kg
[~2019-05-25 11:43] MED LIST changes: -MAGN400T; +MAGN400T3
[2019-05-25 13:30] VITALS: BP 120/61
[2019-05-25 14:10] LABS: ABG BASE EXCESS -0.7 (-2.0-2.0); ABG HCO3 25.1 MEQ/L (22.0-26.0); ABG O2 SATURATION 97.7 % (95.0-99.0); ABG PARTIAL PRESSURE CO2 46.1 mmHg (35.0-45.0); ABG PARTIAL PRESSURE O2 110.9 mmHg (75.0-100.0); ABG STANDARD HCO3 23.9 MEQ/L (22.0-26.0); ABG TOTAL CO2 26.5 MEQ/L (23.0-31.0); ABG pH (ARTERIAL) 7.353 UNITS (7.350-7.450)
[2019-05-25 14:15] LABS: BASO % 0.4 % (0.0-1.0); HEMATOCRIT 35.9 % (36.0-47.0); HEMOGLOBIN 11.6 g/dl (12.0-15.5); LYMPH # 0.4 10^3/uL (1.5-5.0); LYMPH % 4.2 % (24.0-44.0); MEAN CORPUSCULAR HGB CONC 32.3 g/dl (32.0-36.5); MEAN CORPUSCULAR VOLUME 102.3 fl (80.0-96.0); MONO # 0.3 10^3/uL (0.0-0.8); MONO % 3.7 % (0.0-5.0); PLATELET COUNT, AUTOMATED 111 10^3/uL (150-450); RED BLOOD COUNT 3.51 10^6/uL (4.00-5.40); WHITE BLOOD COUNT 8.9 10^3/uL (4.0-10.0)
[2019-05-25 14:30] VITALS: BP 111/56
[2019-05-25 14:30] LABS: INR 1.9; PROTHROMBIN TIME 21.6 SECONDS (11.8-14.0)
[2019-05-25 14:31] LABS: PARTIAL THROMBOPLASTIN TIME 34.5 SECONDS (25.0-38.4)
[2019-05-25 14:44] LABS: ALBUMIN 3.2 GM/DL (3.2-5.2); BILIRUBIN,TOTAL 0.7 MG/DL (0.2-1.0); CALCIUM LEVEL 9.5 MG/DL (8.8-10.2); CK-MB VALUE MASS 2.6 NG/ML (<3.6); CREATININE FOR GFR 4.88 MG/DL (0.55-1.30); GLOMERULAR FILTRATION RATE 9.1 (>32); MAGNESIUM LEVEL 2.1 MG/DL (1.8-2.4); MB/CK RELATIVE INDEX 3.42 (< OR =4); PHOSPHORUS LEVEL 4.9 MG/DL (2.5-4.9); POTASSIUM SERUM 5.4 MEQ/L (3.5-5.1); TOTAL PROTEIN 6.6 GM/DL (6.4-8.2); TROPONIN I 0.05 NG/ML (< 0.10)
[2019-05-25] MEDS ORDERED: CARV6.25 PO (14:48)
[2019-05-25] MEDS ORDERED: RENATAB6 PO (14:48)
--- NOTE | 2019-05-25 15:03 | REP ---
Single portable chest x-ray: 05/25/2019. Indication: Dyspnea. Comparison: 12/22/2018. Findings: Increased air space opacities are noted particulate inferior on the right as well as within the left upper lung. Cardiomegaly is stable. Small left-sided pleural effusion is noted. There is no evidence of pneumothorax. Lines and tubes are stable. Impression: New air space disease, particular involving the right lower and left upper lungs concerning for pneumonia. Electronically Signed by Sahil Quintana DO 05/25/2019 03:05 P
[2019-05-25] MEDS ORDERED: DEXTROSE 50% 50 ML SYRINGE IV PRN (15:15)
[2019-05-25] MEDS ORDERED: GLUCOSE 4 GM CHEW TABLET PO PRN (15:15)
[2019-05-25] MEDS ORDERED: CARBAMIDE PEROXIDE 6.5% OTIC SOLN 15ML AU PRN (15:15)
[2019-05-25] MEDS ORDERED: GLUCAGON FOR INJ 1 MG VIAL (J1610) SC PRN (15:15)
[2019-05-25 16:30] VITALS: BP 128/68
[2019-05-25] MEDS: GABAPENTIN 100 MG CAP PO SCH (16:40)
[2019-05-25] MEDS: HumaLOG INSULIN (NovoLOG) PER UNIT SC SCH ×2 (16:40→20:16)
--- NOTE | 2019-05-25 17:15 | HPEPDOC ---
[facility] Medical History & Physical Date of Admission May 25, 2019 Date of Service: May 25, 2019 Attending Physician: LUIS CRAIG MD History and Physical CHIEF COMPLAINT: Shortness of breath HISTORY OF PRESENT ILLNESS: Patient is an 79 year old female who presented to [facility] for shortness of breath. She has a past medical history significant for ESRD on Hemodialysis, rheumatoid arthritis, paroxysmal atrial fibrillation, diabetes mellitus type 2, and HFrEF with LVEF of 15-20% in 2018.The patient had been placed on 4L of nasal cannula with continued hypoxia. Her ABG [facility] revealed a hypercarbic hypoxemic respiratory failure. The patients chest x-ray revealed vascular congestion suggestive of pulmonary edema. The patient was placed on BiPAP and transferred to [facility] for hemodialysis. On arrival to [facility] the patient was awake and alert. She was continued on BiPAP. She had stated that her shortness of breath gradually came on over the past few days. She currently receives hemodialysis Saturday, Saturday, and Saturday. The patient had stated that she has been compliant with her hemodialysis. She states that since last week she has felt like she was getting gradually more short of breath. Today when she woke up, she felt the shortness of breath was worsening which prompted her presentation to [facility]. She denies any chest pain or palpitations. She has stated that she has always had difficulty laying down flat. Since being on BiPAP the patient states that her breathing has improved. She continues to deny any chest pain. A repeat ABG was obtained which demonstrated improvement. Repeat chest x-ray demonstrated vascular congestion and likely pulmonary edema. Patient is currently awaiting hemodialysis. PAST MEDICAL HISTORY: 1. HFrEF s/p AICD placement 2. ESRD on Hemodialysis M, W, F 3. Paroxysmal Atrial Fibrillation 4. Rheumatoid Arthritis 5. Diabetes Mellitus Type 2 6. Coronary Artery Disease PAST SURGICAL HISTORY: 1. AICD placement 2. Right chest wall tunneled hemodialysis catheter SOCIAL HISTORY:Patient lives at home with her son. She denies any alcohol or tobacco use. She states she has never used tobacco however, has been exposed to second hand smoke FAMILY HISTORY: Patient states that she has a son who is healthy. She also has a daughter who is alive and well. ALLERGIES: Please see below. REVIEW OF SYSTEMS: CONSTITUTIONAL: Denies fevers, chills, unintentional weightloss or weightgain. Denies night sweats HEENT: Denies dysphagia. Denies changes in vision CARDIOVASCULAR: Denies chest pain. Denies palpitations or feelings of the heart racing RESPIRATORY: Admits to shortness of breath which has progressed. Admits to cough. Denies sputum production GASTROINTESTINAL: Denies abdominal pain. Denies nausea, vomiting, diarrhea, or constipation GENITOURINARY: Denies dysuria or increased frequency SKIN: Denies rashes or lesion NEUROLOGICAL: Denies changes in her gait from her baseline. Denies changes in her speech PSYCHIATRIC: Denies depression or anxiety ENDOCRINE: Denies heat intolerance or cold intolerance. Admits to diabetes HEMATOLOGIC/LYMPHATIC: Denies easy bruising or bleeding. Denies history of deep vein thrombosis or pulmonary embolism HOME MEDICATIONS: Please see below. PHYSICAL EXAMINATION: VITAL SIGNS: Temperature 97.7, pulse 80, respiratory rate 18, blood pressure 120/61, pulse oximetry 98% on BiPAP w/ FiO2 40 GENERAL APPEARANCE: Patient is awake alert and oriented. She is lying in bed on BiPAP. She does not appear in acute distress. HEENT: Atraumtic, normocephalic. Eyes are nonicteric. trachea is midline. BiPAP is in place CARDIOVASCULAR: Normal S1, S2. Regular rate and rhythm. No clicks rubs or murmurs. Jugular venous distension noted LUNGS: Bilateral rales present. Overall diminished breath sounds bilaterally. No wheezes. No dullness to percussion ABDOMEN: Obsese, soft, nondistended. Nontender to palpation in all 4 quadrants. No rebound tenderness or guarding. Normoactive bowel sounds throughout EXTREMITIES: Significant bilateral pitting edema. DP pulses present via doppler. Right great toe area of ulceration 0set6ht. NEUROLOGICAL: No focal neurological deficits PSYCHIATRIC: Mood and affect appear appropriate LABORATORY DATA: See below. IMAGING: Single portable chest x-ray: 05/25/2019. Indication: Dyspnea. Comparison: 12/22/2018. Findings: Increased air space opacities are noted particulate inferior on the right as well as within the left upper lung. Cardiomegaly is stable. Small left-sided pleural effusion is noted. There is no evidence of pneumothorax. Lines and tubes are stable. Impression: New air space disease, particular involving the right lower and left upper lungs concerning for pneumonia. Electronically Signed by Sahil Quintana DO 05/25/2019 03:05 P MICROBIOLOGY: Please see below. ASSESSMENT: Patient is an 79 year old female who originally presented to [facility] for complaint of shortness of breath. The patient was found to have pulmonary edema with hypercarbic hypoxemic respiratory failure. She was placed on BiPAP and transferred to [facility]. On presentation the patients respiratory status improved. Nephrology consult was placed for bedside emergent hemodialysis. Patient is continued on BiPAP with weaning once hemodialysis begins. PLAN: 1. Hypercarbic hypoxemic respiratory failure likely 2/2 pulmonary edema -Patient presented [facility] in [facility] distress. This was felt to be secondary to pulmonary edema. Patient was placed on BiPAP and transferred to [facility] -Patient appears hypervolemic and will receive emergent Hemodialysis. -ABG has shown improvement. Plan to wean patient off of BiPAP -Patient appears to have developed fairly acute pulmonary edema. She is compl iant with Hemodialysis. Will order Echocardiogram to assess for LVEF -Troponin negative. Will trend. 2. ESRD on HD M, W, F -Patient currently receives hemodialysis M,W,F. She has a tunneled hemodi alysis catheter in her right chest wall. Patient was recently started on hemodialysis in December of 2018 -Patient is receiving hemodialysis at bedside in the ICU. -Nephrology consultation has been placed. Consultation is greatly appreciated 3. HFrEF -Patients echocardiogram in 2018 demonstrated a LVEF 15-20%. She currently has a dual chamber pace maker/AICD. -Echocardiogram ordered to assess LVEF and cardiac wall abnormalities 4. Diabetes Mellitus Type 2 -Will start 10 units Levemir -Sliding scale coverage ACHS 5. Paroxysmal Atrial Fibrillation -Patient has a history of A-fib. Currently in sinus with dual pacing. -Patient takes amiodarone at home. Currently held -Continue Eliquis 2.5 mg BID -Telemetry 5. Hypertension -Currently normotensive and receiving HD. Will hold home BP medications. Consider restarting tomorrow or tonight if patient becomes hypertensive 6. Rheumatoid arthritis -Patient takes Hydroxychloroquine. Currently holding 7. 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 DVT prophylaxis -Teds and Sequentials -Patient chronically anticoagulated on Eliquis 2.5 mg Laboratory Data Labs 24H Laboratory Tests 2 05/25/19 13:57: Blood Gas Bicarbonate Standard 23.9, Arterial Blood pH 7.353, Arterial Blood Partial Pressure CO2 46.1H, Arterial Blood Partial Pressure O2 110.9H, Arterial Blood Total CO2 26.5, Arterial Blood HCO3 25.1, Arterial Blood Base Excess -0.7, Arterial Blood Oxygen Saturation 97.7 05/25/19 14:03: Immature Granulocyte % (Auto) 1.7, White Blood Count 8.9, Red Blood Count 3.51L, Hemoglobin 11.6L, Hematocrit 35.9L, Mean Corpuscular Volume 102.3H, Mean Corpuscular Hemoglobin 33.0, Mean Corpuscular Hemoglobin Concent 32.3, Red Cell Distribution Width 15.6H, Platelet Count 111L, Neutrophils (%) (Auto) 90.0H, Lymphocytes (%) (Auto) 4.2L, Monocytes (%) (Auto) 3.7, Eosinophils (%) (Auto) 0.0, Basophils (%) (Auto) 0.4, Neutrophils # (Auto) 8.0, Lymphocytes # (Auto) 0.4L, Monocytes # (Auto) 0.3, Eosinophils # (Auto) 0.0, Basophils # (Auto) 0.0, Nucleated Red Blood Cells % (auto) 0.0, Prothrombin Time 21.6H, Prothromb Time International Ratio 1.90, Activated Partial Thromboplast Time 34.5, Ammonia < 10 CBC/BMP Laboratory Tests 05/25/19 14:03 Red Blood Count 3.51 L, Mean Corpuscular Volume 102.3 H, Mean Corpuscular Hemoglobin 33.0, Mean Corpuscular Hemoglobin Concent 32.3, Red Cell Distribution Width 15.6 H, Neutrophils (%) (Auto) 90.0 H, Lymphocytes (%) (Auto) 4.2 L, Monocytes (%) (Auto) 3.7, Eosinophils (%) (Auto) 0.0, Basophils (%) (Auto) 0.4, Neutrophils # (Auto) 8.0, Lymphocytes # (Auto) 0.4 L, Monocytes # (Auto) 0.3, Eosinophils # (Auto) 0.0, Basophils # (Auto) 0.0 Home Medications Scheduled Amiodarone HCl (Amiodarone HCl) 200 Mg Tab, 200 MG PO DAILY Apixaban (Eliquis) 2.5 Mg Tablet, 2.5 MG PO BID Atorvastatin Calcium (Atorvastatin Calcium) 20 Mg Tab, 20 MG PO QHS Carboxymethyl/Glycerin/Poly80 (Refresh Optive Advanced Drops) 1 Claudia Claudia, 1 DROP OU DAILY Carvedilol (Carvedilol) 6.25 Mg Tablet, 6.25 MG PO BID Cetirizine HCl (Cetirizine HCl) 10 Mg Tablet, 10 MG PO DAILY Gabapentin (Gabapentin) 100 Mg Cap, 100 MG PO DAILY Hydroxychloroquine Sulfate (Hydroxychloroquine Sulfate) 200 Mg Tab, 200 MG PO BID Insulin Aspart (Novolog Flexpen) 100 Unit/Ml Inj, 1 DOSE SC AC PER SLIDING SCALE Insulin Detemir (Levemir Flextouch) 100 Unit/Ml Inj, 20 UNIT SC BID Levothyroxine Sodium (Synthroid) 125 Mcg Tablet, 125 MCG PO DAILY Mirtazapine (Mirtazapine) 15 Mg Tab.rapdis, 7.5 MG PO QHS Vit B Comp No.3/Folic/C/Biotin (Althea-Jett Rx Tablet) 1 Each Tablet, 1 TAB PO DAILY Scheduled PRN Albuterol Sulf (Albuterol Sulfate) 2.5 Mg/3 Ml Vial.neb, 2.5 MG INH Q6H PRN for SHORTNESS OF BREATH Albuterol Sulfate (Ventolin Hfa) 18 Gm Hfa.aer.ad, 2 PUFF INH Q4H PRN for SHORTNESS OF BREATH Carbamide Peroxide (Debrox) 15 Ml Drops, 1 DROP OU BID PRN for EARWAX Allergies Coded Allergies: ENVIROMENTAL (Verified Allergy, Unknown, DUST, MILDEW, 07/27/18) TAPE (Unverified Allergy, Unknown, BLISTERS, 11/20/18) hydromorphone (Verified Adverse Reaction, Mild, ITCHING, 11/20/18) oxycodone (Verified Adverse Reaction, Mild, ITCHING, 11/20/18) A-FIB/CHADSVASC A-FIB History Current/History of A-Fib/PAF?: Yes Current PO Anticoag Therapy: Yes GME ATTESTATION GME ATTESTATION My faculty preceptor for this patient encounter was physically present during the encounter and was fully available. All aspects of the patient interview, exa mination, medical decision making process, and medical care plan development were reviewed and approved by the faculty preceptor. The faculty preceptor is aware and concurs with the plan as stated in the body of this note and will attest to such by his/her cosignature. ATTENDING NOTE I, Luis Craig, have independently examined this patient and performed my own physical exam, as well as reviewed the documentation and edited where necessary. I have discussed in detail with the resident / student the findings and plan of treatment as documented by the resident / student and edited their note. I agree with their findings and treatment plan and have edited their documentation. I will continue to follow the patient during this hospital stay. KENA FRANCE DO May 25, 2019 15:35 LUIS CRAIG MD May 26, 2019 15:05
--- NOTE | 2019-05-25 17:55 | ECGEPIP ---
[facility] Test Date: 2019-05-25 Pat Name: DARIELA LUNDBERG Department: Room: [place] [address] Gender: Female [employer]person [employer]: MICHEAL : [id number] Requested By: KENA FRANCE Order Number: [id number] Reading MD: Vinita Luna Measurements Intervals [place] Rate: 80 P: 266 UT: 170 QRS: -83 QRSD: 211 T: 94 QT: 380 QTc: 438 Interpretive Statements ELECTRONIC ATRIAL PACEMAKER ELECTRONIC VENTRICULAR PACEMAKER ABNORMAL RHYTHM ECG SIMILAR RO 12/22/18 Electronically Signed on 05-25-2019 17:54:50 EDT by Vinita Luna
[2019-05-25 20:00] VITALS: BP 102/60
[2019-05-25 20:15] VITALS: BP 90/55
[2019-05-25] MEDS: LEVEMIR (INSULIN DETEMIR) 1 UNITS/0.01ML SC SCH (20:17)
[2019-05-25] MEDS: ATORVASTATIN 20 MG TAB PO SCH (20:17)
[2019-05-25] MEDS: APIXABAN 2.5 MG TAB (ELIQUIS) PO SCH (20:17)
[2019-05-25] MEDS ORDERED: ACETAMINOPHEN TAB 650MG DOSE (2X325MG) PO ONE (22:30)
[2019-05-26] VITALS (9 sets, daily range): BP systolic 102–111; BP diastolic 55–66
[2019-05-26 04:56] LABS: HEMATOCRIT 30.2 % (36.0-47.0); HEMOGLOBIN 10.2 g/dl (12.0-15.5); MEAN CORPUSCULAR HEMOGLOBIN 33.4 pg (27.0-33.0); MEAN CORPUSCULAR HGB CONC 33.8 g/dl (32.0-36.5); PLATELET COUNT, AUTOMATED 111 10^3/uL (150-450); RED BLOOD COUNT 3.05 10^6/uL (4.00-5.40); WHITE BLOOD COUNT 7.5 10^3/uL (4.0-10.0)
[2019-05-26 05:30] LABS: CALCIUM LEVEL 9.1 MG/DL (8.8-10.2); CREATININE FOR GFR 2.61 MG/DL (0.55-1.30); GLOMERULAR FILTRATION RATE 18.8 (>32); POTASSIUM SERUM 4.3 MEQ/L (3.5-5.1)
--- NOTE | 2019-05-26 06:49 | CR ---
DATE OF CONSULTATION: 05/25/2019 REQUESTING PHYSICIAN: Dr. Birdie Padron. REASON FOR CONSULTATION: Acute respiratory failure and congestive heart failure in this patient with end-stage renal disease. CHIEF COMPLAINT: The patient was transferred from [facility] for higher level of care. HISTORY OF PRESENT ILLNESS: Mee Joel is an 79-year-old female with past medical history of end-stage renal disease on hemodialysis every Saturday, Saturday, Saturday. history of heart failure with the reduced ejection fraction. status post automatic implantable cardio converter-defibrillator (AICD) placement, multiple other comorbidities as mentioned below. She reports that her son had an upper respiratory infection and it looks like she got the infection from him and for the last few days she was having of progressive shortness of breath. She did not miss her dialysis, last hemodialysis was on Saturday and she was supposed to get dialysis as an outpatient today; however, because of her progressive shortness of breath with some cough but no phlegm she ultimately presented to the [facility] Emergency room. At [facility] the patient was found to have acute hypoxic and hypercapnic respiratory failure. She was placed on BiPap and she got the nitroglycerin paste. A chest x-ray showed possible pulmonary edema. Because hemodialysis service is not available at [facility], the emergency room (ER) physician called me. I would discuss the case with them and I requested the patient to be transferred to the intensive care unit (ICU) at [facility] so we can further evaluate the patient and arrange hemodialysis. I emergently saw and evaluated the patient at the bedside today in the evening. I had already arranged the urgent hemodialysis of this patient to be done at the bedside. The patient was on BiPap when she arrived; however, she reports that she is feeling slightly better now after starting on hemodialysis. Her blood pressures were within the acceptable limits. The patient was not needing IV medications to control her blood pressure. PAST MEDICAL HISTORY: 1. History of heart failure with the reduced ejection fraction. There is a documentation of left ventricular (LV) ejection fraction of around 20% on an echocardiogram done more than a year ago . 2. End-stage renal disease on hemodialysis every Saturday, Saturday, Saturday. 3. History of paroxysmal atrial fibrillation (A-fib). 4. Rheumatoid arthritis. 5. Diabetes mellitus type 2, insulin dependent. 6. History of coronary artery disease. 7. Hypothyroidism. PAST SURGICAL HISTORY: 1. Status post right internal jugular (IJ) tunneled hemodialysis catheter placement. 2. Status post AICD placement. ALLERGIES: The patient is allergic to HYDROMORPHONE, OXYCODONE, TAPE and ENVIRONMENTAL ALLERGIES. FAMILY HISTORY: The patient has a son who has end-stage renal disease as well and he is on dialysis. SOCIAL HISTORY: The patient denies any smoking, illicit drug abuse or alcohol abuse. She lives at home with her son. REVIEW OF SYSTEMS: CONSTITUTIONAL. The patient denies any fevers or chills. EYES: Eyes: She denies any blurry vision or double vision. ENT: She denies any dysphagia, odynophagia or ear discharge. CARDIOVASCULAR: She reports history of heart failure and progressively worsening shortness of breath. RESPIRATORY: The patient does report some cough but she denies any phlegm. GASTROINTESTINAL (GI): She denies any nausea, vomiting or diarrhea. GENITOURINARY: She denies any dysuria or hematuria. MUSCULOSKELETAL: She denies any muscle aches and pains. SKIN: She denies any rashes or ulcers. PSYCHIATRIC: She denies any depression or anxiety. CENTRAL NERVOUS SYSTEM (PORTAL ARCHITECT): She denies any seizures or strokes. HEMATOLOGICAL/ONCOLOGICAL: She denies any easy bleeding or bruising. All other review of systems is negative. PHYSICAL EXAMINATION: GENERAL: The patient is awake, alert, oriented times three, laying in bed. Mild respiratory distress. VITAL SIGNS: Temperature is 97.8 degrees Fahrenheit, blood pressure 128/68, pulse is 80, respiratory of 16, saturating 98% on 2 liters by nasal cannula. HEAD/NECK: Extraocular muscles intact. Pupils equally round and reactive to light. Mucous membranes are moist. Neck is supple. There is moderately elevated jugular venous distention (JVD). CARDIOVASCULAR: S1, S2. Regular rate, 2+ edema of the bilateral lower extremities. RESPIRATORY: Decreased breath sounds bilaterally at the bases with inspiratory crackles bilaterally. ABDOMEN: Soft, positive bowel sounds. Nontender. No organomegaly. MUSCULOSKELETAL: No clubbing or cyanosis. Pulses are 2+. CENTRAL NERVOUS SYSTEM (PORTAL ARCHITECT): No focal deficit. Power 5/5 in all extremities. ARTERIOVENOUS ACCESS: She has a right internal jugular (IJ) tunneled hemodialysis catheter which is being used for dialysis at this time. LABORATORY REVIEW: CBC showed WBC of 8.9, hemoglobin 11.6, platelets of 111, INR is 1.9. ABG done on arrival showed a pH of 7.35, pCO2 of 46, CO2 110, bicarb 25. Oxygen sat 97%. BMP showed sodium 136, potassium 5.4, chloride 98, bicarb 29, BUN 51, creatinine is 4.8, total bilirubin 0.7, AST 65, ALT 51, alk phos is 119, albumin is 3.2. IMAGING STUDIES: A chest x-ray was done on arrival which showed new air space disease particularly involving the right lower and left upper lungs concerning for pneumonia. HOME MEDICATIONS: - albuterol at home - amiodarone 200 mg by mouth daily - Eliquis 2.5 mg by mouth twice a day - Lipitor 20 mg nightly - Coreg 6.25 mg by mouth twice a day - gabapentin 100 mg by mouth daily - hydroxychloroquine 200 mg by mouth twice a day - insulin Levemir 20 units subcu twice a day - levothyroxine 125 mcg by mouth daily - RenoVite vitamins CURRENT INPATIENT MEDICATIONS: The patient's inpatient medications were reviewed by me. She is currently on: - Eliquis 2.5 mg by mouth twice a day - Lipitor 20 mg by mouth nightly - [id number] mg daily - gabapentin 100 mg by mouth daily - insulin Levemir 10 units subcu nightly - insulin lispro sliding scale - levothyroxine 125 mcg by mouth daily ASSESSMENT: 79-year-old female with acute hypercapnic and hypoxemic respiratory failure, pulmonary edema, acute decompensated systolic congestive heart failure. PLAN: 1. Acute hypoxic and hypercapnic respiratory failure. The patient's arterial blood gas (ABG) done at [facility] was consistent with hypoxemia and hypercapnia. She was placed on BiPap. She was transferred on BiPap. Repeat ABG shows improvement. The patient is being dialyzed at this time. Hemodialysis and ultrafiltration would help improve her respiratory status. A chest x-ray shows infiltrates on both sides concerning for pneumonia. I would repeat another chest x-ray after dialysis to make sure the pulmonary edema is improving. If I do not see any improvement in the edema the patient will get a CT scan of the chest to rule out community-acquired pneumonia. 2. Acute decompensated congestive heart failure with reduced ejection fraction. The patient does not have any echocardiogram in the records. I ordered a 2-D echocardiogram for left ventricular ejection fraction. She has history of pacemaker and the automatic implantable cardio converter-defibrillator (AICD). Continue home dose of, Carvedilol as the volume status is being optimized with HD. 3. History of paroxysmal atrial fibrillation. Heart rate is controlled at this time. She can resume amiodarone 100 mg daily tomorrow morning. Continue Eliquis 2.5 mg by mouth twice a day. 4. Hyperkalemia. Potassium is 5.4. She is being dialyzed with 2k bath. Potassium is expected to improve after dialysis. 5. Diabetes mellitus type 2 insulin dependent. Continue insulin Levemir 20 units subcu twice a day and insulin sliding scale. 6. Hypothyroidism. Continue home dose of levothyroxine 125 mcg by mouth daily. 7. Anemia and end-stage renal disease. Hemoglobin is 11.6 which is optimal. No need of Aranesp administration at this time. 8. End-stage renal disease on hemodialysis. The patient's regular dialysis days are Saturday, Saturday, Saturday. She is being emergently dialyzed at this time at the bedside and she is tolerating the hemodialysis procedure well. Thank you for involving me in the care of this patient. I shall be happy to follow the patient along with you tomorrow morning. Total critical care time spent in the management of this patient today evening in the intensive care unit (ICU) was one hour, that does not include any procedures. NICOLED
[2019-05-26] MEDS: HumaLOG INSULIN (NovoLOG) PER UNIT SC SCH ×4 (07:59→21:18)
[2019-05-26] MEDS: CETIRIZINE (ZyrTEC) 10 MG TAB PO SCH (08:28)
[2019-05-26] MEDS: GABAPENTIN 100 MG CAP PO SCH (08:28)
[2019-05-26] MEDS: LEVOTHYROXINE 125MCG TABLET (0.125MG) PO SCH (08:28)
[2019-05-26] MEDS: APIXABAN 2.5 MG TAB (ELIQUIS) PO SCH ×2 (08:28→21:17)
--- NOTE | 2019-05-26 08:36 | REP ---
Portable chest x-ray: Single view. 7:56 p.m. film. History: Post hemodialysis. Rule out pulmonary edema versus pneumonia. Comparison chest x-ray May 25, 2019, 1:56 p.m. film . Findings: A tunneled central venous catheter is noted on the right with its tip in the expected location of the SVC right atrial junction. A multilead pacemaker is seen in the right heart via the left side. There are epicardial pacemaker leads as well. Oxygen delivery tubing and monitoring electrodes are observed. The heart is moderately enlarged. There are some increased markings in the right base unchanged from the film done earlier this date. This appears to be a new finding compared with the December 22, 2018 prior study. There is no chava pleural effusion. Impression: Suspected infiltrate right base. Moderate cardiomegaly. No chava pulmonary edema or pleural effusion seen. Electronically Signed by Brad Thomas MD 05/26/2019 11:25 A
--- NOTE | 2019-05-26 11:08 | REP ---
CT chest without contrast: History: Infiltrate right base. Rule out pneumonia. Comparison chest x-ray May 25, 2019. Findings: There are small bilateral pleural effusions. No pericardial effusion is seen. There is marked four-chamber cardiomegaly with extensive vascular calcification. Pacemaker leads are noted. A right sided tunnel catheter terminates at the SVC right atrial junction. No hilar or mediastinal mass or adenopathy is observed. There is bibasilar discoid atelectasis in the lower lobes bilaterally. There is no visible lower lobe infiltrate. There are some alveolar opacities in the right upper lobe in a peribronchovascular distribution which may be early inflammatory change or mild edema. There is a 4 mm noncalcified pulmonary nodule in the right upper lobe lung apex visible on page 19 of 93 in series 201 of today's study. There is a calcified granuloma in the left upper lobe on page 36. There is a 2 mm noncalcified nodule in the right lung in the upper lobe on page 46. No more significant pulmonary nodule is appreciated. No bony destructive lesion is seen. Epicardial pacemaker leads are noted coursing through the pleural space on the left. Impression: Small bilateral pleural effusions, pacemaker wires and central lines as above. Cardiomegaly. Bibasilar atelectasis. Subtle alveolar opacity pattern in the right upper lobe may reflect early inflammatory infiltrate. Scattered subcentimeter pulmonary nodules. Electronically Signed by Brad Thomas MD 05/26/2019 11:32 A
[2019-05-26] MEDS ORDERED: DARBEPOETIN 100 MCG/0.5 ML *DIALYSIS* SYRINGE (J0882) IV SCH (12:15)
[2019-05-26] MEDS ORDERED: HEPARIN 1,000 UNITS/ML 10ML VIAL (FOR RADIOLOGY& DIALYSIS ONLY) IV ONE (12:45)
[2019-05-26] MEDS ORDERED: HEPARIN 1,000 UNITS/ML 10ML VIAL (FOR RADIOLOGY& DIALYSIS ONLY) XX ONE (12:45)
--- NOTE | 2019-05-26 12:54 | IPN ---
DATE OF SERVICE: 05/26/2019 SUBJECTIVE: The patient was seen and examined at the bedside today morning. She was emergently dialyzed yesterday. She got 2 liters of fluid removed. She reports her breathing is significantly better today as compared with yesterday. We got the results from the outside hospital emergency room. The patient has respiratory viral panel positive for rhinovirus. The patient still reports a mild amount of cough. OBJECTIVE: Vital signs: Blood pressure is 104/58, pulse is 79, respiratory rate of 20, saturating 91% on nasal cannula. Intake and output: Urine output recorded is 250 mL. Ultrafiltration with hemodialysis was 2 liters yesterday. Weight in the bed scale is 74 kg. PHYSICAL EXAMINATION: General: The patient is awake, alert, oriented times three, sitting up in the bed, in no apparent distress. Head and neck exam: Extraocular muscles intact. Pupils equally round and reactive to light. Mucous membranes are moist. Neck is supple. There is mildly elevated jugular venous distention (JVD). Cardiovascular: S1, S2, regular rate. 2+ edema of the bilateral lower extremities. Respiratory: Mildly decreased breath sounds at the bases. Mild expiratory rhonchi at the right base with mild respiratory crackles at the bases. Abdomen is soft. Positive bowel sounds. Nontender. No organomegaly. Musculoskeletal: No clubbing or cyanosis. Pulses are 2+. 2+ edema of the lower extremities. Central nervous system (PUBLIC POLICY ANALYST): No focal deficit. Power is 5/5 in all extremities. LAB REVIEWS: CBC showed WBC 7.5, hemoglobin 10.2, platelets of 111. BMP showed sodium 136, potassium 4.3, chloride 102, bicarbonate 29, BUN 25, creatinine is 2.6, calcium is 9.1. IMAGING: A CAT scan of the chest was done today morning, which showed small bilateral pleural effusions, pacemaker wires and central lines are as above, cardiomegaly, bibasilar atelectasis, subtle alveolar opacity better in the right upper lobe, which may reflect early inflammatory infiltrate. CURRENT INPATIENT MEDICATIONS: The patient's medications were all reviewed by me. There is no change in the medications today as compared with yesterday. ASSESSMENT AND PLAN: 1. End-stage renal disease on hemodialysis. The patient's regular dialysis days are Saturday, Saturday, Saturday. However, the patient still has some fluid on board. She will get ultrafiltration done again today and I will try to remove at least 2 liters of fluid. 2. Shortness of breath secondary to pulmonary edema and acute rhinovirus infection. The patient is getting nebulizations as needed for shortness of breath. Hypoxemia significantly better with hemodialysis. Further ultrafiltration is being done as mentioned above. 3. Decompensated heart failure with reduced ejection fraction. Repeat echocardiogram result is pending. Volume status is still decompensated. The patient needs another ultrafiltration today. 4. Anemia in end-stage renal disease. Hemoglobin is 10.2. The patient will be given a dose of Aranesp with dialysis today.
[2019-05-26] MEDS: AMIODARONE 100MG TABLET (PACERONE) PO SCH (14:42)
--- NOTE | 2019-05-26 17:43 | IPNPDOC ---
Date Seen The patient was seen on 05/26/19. Progress Note SUBJECTIVE: Patient was seen and examined this morning. She has improved significantly since admission. She has received dialysis and has had 2L removed. She is planned for additional dialysis today. The patient states that her breathing has improved significantly overnight. She is more alert this morning. She states that she has had a cough for the past week. She does state that this cough has improved since last night. She denies any sputum production. She denies any chills or fevers. Upper respiratory panel from [facility] was positive for Rhinovirus OBJECTIVE PHYSICAL EXAMINATION: VITAL SIGNS: Please see below. GENERAL: Awake, alert, and oriented. Appears in no acute distress. She is sitting on chair comfortably. HEENT: Atraumatic, normocephalic Eyes nonicteric. Trachea is midline CARDIOVASCULAR: Normal S1, S2, regular rate and rhythm, no clicks, rubs or murmurs. No JVD RESPIRATORY: Overall diminished breath sounds bilaterally. Crackles in the bases bilaterally, anterior breath sounds are clear. No wheezes. No dullness to percussion. Symmetric chest rise. . No accessory muscle use ABDOMINAL: Obese, soft, nondistended, nontender to palpation in all 4 quadrants. No rebound tenderness or guarding. Normoactive bowel sounds throughout EXTREMITIES:. 1+ bilateral pitting edema with significant improvement from previous examination. Right great toe area of ulceration NEUROLOGICAL: No focal neurological deficits PSYCHOLOGICAL: Mood and affect appear appropriate LABORATORY DATA, IMAGING STUDIES, MICROBIOLOGY: Please see below. Echocardiogram: . DVT prophylaxis ordered?: Teds and sequentials/Eliquis 2.5 mg ASSESSMENT AND PLAN: Patient is an 79-year-old female who originally presented to [facility] with complaint of shortness of breath. Patient was found to have pulmonary edema with hypercarbic hypoxemic respiratory failure. She was placed on BiPAP and transferred to [facility]. On presentation, the patient's respiratory status improved. Nephrology was consulted for bedside emergent hemodialysis. Patient was continued on BiPAP with weaning. She is currently on room air with resolution of her pulmonary edema. The patient has received a chest CT was inserted bilateral pleural effusions. The patient had respiratory panel at [facility] which revealed rhinovirus. PROBLEMS: 1. Hypercarbic hypoxemic respiratory failure likely 2/2 pulmonary edema -Patient presented to [facility] in respiratory distress. This was felt to be secondary to pulmonary edema. Patient was placed on BiPAP and transferred to [facility] -Patient has received dialysis with significant improvement. She is planned for additional dialysis and removal of 2L of fluid. -Patient remains off of Bipap. Her respiratory distress was likely a combination of her pulmonary edema and Rhinovirus -Echocardiogram is pending -Troponin negative. Will trend. 2. ESRD on HD M, W, F -Patient currently receives hemodialysis M,W,F. She has a tunneled hemodialysis catheter in her right chest wall. Patient was recently started on hemodialysis in December of 2018 -Patient received HD. Plan for additional HD today -Nephrology consultation has been placed. Consultation is greatly appreciated 3. HFrEF -Patients echocardiogram in 2018 demonstrated a LVEF 15-20%. She currently has a dual chamber pace maker/AICD. -Echocardiogram ordered to assess LVEF and cardiac wall abnormalities. Currently pending 4. Diabetes Mellitus Type 2 -Continue Levemir 10 units -Sliding scale coverage ACHS 5. Paroxysmal Atrial Fibrillation -Patient has a history of A-fib. Currently in sinus with dual pacing. -100mg Amiodarone. Patient receives 200mg at home. Will restart home dose before discharge -Continue Eliquis 2.5 mg BID -Telemetry 5. Hypertension -Currently normotensive and receiving HD. Will hold home BP medications. 6. Rheumatoid arthritis -Patient takes Hydroxychloroquine. Currently holding 7. 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 DVT prophylaxis -Teds and Sequentials -Patient chronically anticoagulated on Eliquis 2.5 mg DISPOSITION: Patient will likely be discharged in 24-48 hours VS, I&O, 24H, [facility] Vital Signs/I&O Vital Signs Date Time Temp Pulse Resp B/P (MAP) Pulse Ox O2 Delivery O2 Flow Rate FiO2 05/26/19 14:15 97.2 81 18 110/66 (81) 97 05/26/19 04:00 1.0 05/25/19 14:30 40 I&O- Last 24 Hours up to 6 AM 05/26/19 06:00 Intake Total 290 ml Output Total 2000 ml Balance -1710 ml Laboratory Data 24H LABS Laboratory Tests 2 05/25/19 20:04: Bedside Glucose (Misc Panel) 165H 05/26/19 04:44: Nucleated Red Blood Cells % (auto) 0.0, Anion Gap 5L, Glomerular Filtration Rate 18.8L, Blood Urea Nitrogen 25#H, Creatinine 2.61H, Sodium Level 136, Potassium Level 4.3#, Chloride Level 102, Carbon Dioxide Level 29, Calcium Level 9.1 05/26/19 14:41: Bedside Glucose (Misc Panel) 229H 05/26/19 16:58: Bedside Glucose (Misc Panel) 224H CBC/BMP Laboratory Tests 05/26/19 04:44 Red Blood Count 3.05 L, Mean Corpuscular Volume 99.0 H, Mean Corpuscular Hemoglobin 33.4 H, Mean Corpuscular Hemoglobin Concent 33.8, Red Cell Distribution Width 15.0 H, Calcium Level 9.1 KENA FRANCE DO May 26, 2019 17:43
[2019-05-26] MEDS: ATORVASTATIN 20 MG TAB PO SCH (21:17)
[2019-05-26] MEDS: LEVEMIR (INSULIN DETEMIR) 1 UNITS/0.01ML SC SCH (21:28)
[2019-05-27 04:00] VITALS: BP 111/60
[2019-05-27 06:05] LABS: HEMATOCRIT 34.8 % (36.0-47.0); HEMOGLOBIN 11.4 g/dl (12.0-15.5); MEAN CORPUSCULAR HEMOGLOBIN 33.2 pg (27.0-33.0); MEAN CORPUSCULAR HGB CONC 32.8 g/dl (32.0-36.5); MEAN CORPUSCULAR VOLUME 101.5 fl (80.0-96.0); PLATELET COUNT, AUTOMATED 118 10^3/uL (150-450); RED BLOOD COUNT 3.43 10^6/uL (4.00-5.40); WHITE BLOOD COUNT 6.9 10^3/uL (4.0-10.0)
[2019-05-27 06:22] LABS: CALCIUM LEVEL 9.1 MG/DL (8.8-10.2); CREATININE FOR GFR 4.3 MG/DL (0.55-1.30); GLOMERULAR FILTRATION RATE 10.6 (>32); POTASSIUM SERUM 4.6 MEQ/L (3.5-5.1)
[2019-05-27] MEDS: HumaLOG INSULIN (NovoLOG) PER UNIT SC SCH ×4 (07:35→20:37)
[2019-05-27 07:44] VITALS: BP 115/63
[2019-05-27] MEDS ORDERED: HEPARIN 1,000 UNITS/ML 10ML VIAL (FOR RADIOLOGY& DIALYSIS ONLY) XX ONE (10:30)
[2019-05-27] MEDS ORDERED: HEPARIN 1,000 UNITS/ML 10ML VIAL (FOR RADIOLOGY& DIALYSIS ONLY) IV ONE (10:30)
[2019-05-27 12:25] VITALS: BP 108/62
[2019-05-27] MEDS: AMIODARONE 100MG TABLET (PACERONE) PO SCH (12:28)
[2019-05-27] MEDS: CETIRIZINE (ZyrTEC) 10 MG TAB PO SCH (12:29)
[2019-05-27] MEDS: GABAPENTIN 100 MG CAP PO SCH (12:29)
[2019-05-27] MEDS: APIXABAN 2.5 MG TAB (ELIQUIS) PO SCH ×2 (12:29→20:38)
--- NOTE | 2019-05-27 12:57 | IPN ---
DATE OF SERVICE: 05/27/2019 SUBJECTIVE: The patient was seen and examined the bedside today morning at dialysis. She is tolerating the hemodialysis procedure well. She got 2 liters of extra ultrafiltration done yesterday as well. She reports that her breathing is significantly better today. Blood pressures are better controlled. OBJECTIVE: VITAL SIGNS: Temperature is 98.5 degrees Fahrenheit, blood pressure 115/63, pulse is 78, respiratory of 18, saturating 92% on room air. INTAKE AND OUTPUT: No urine output recorded. Ultrafiltration done yesterday was 2 liters. Weight on the bed scale is 67.5 kg, which is not very reliable because there is 7 kg difference in the weight from yesterday. PHYSICAL EXAMINATION: GENERAL: Patient is awake, alert, oriented times three laying in bed getting hemodialysis done. HEAD AND NECK EXAM: Extraocular muscles intact. Pupils equally round and reactive to light. Neck is supple. She has a right IJ tunneled hemodialysis catheter which is being used for dialysis. CARDIOVASCULAR: S1, S2 regular rate, 2+ edema of the bilateral lower extremities. RESPIRATORY: Chest is clear to auscultation bilaterally. Bilateral equal air entry. No rales or rhonchi. ABDOMEN: Soft, positive bowel sounds. Nontender. No organomegaly. MUSCULOSKELETAL: No clubbing or cyanosis. Pulses are 2+. STORES CLERK: No focal deficit. Power is power is 5/5 in all extremities. LABORATORY REVIEW: CBC showed WBC 6.9, hemoglobin 11.4, platelets of 118. BMP showed sodium 134, potassium 4.6, chloride 102, bicarb 25, BUN 44, creatinine is 4.3, calcium is 9.1. CURRENT INPATIENT MEDICATIONS: The patient's medications were all reviewed by me. Insulin Levemir dose has been increased to 16 units daily. No other change in the medications today as compared with yesterday. ASSESSMENT/PLAN: 1. End-stage renal disease on hemodialysis. The patient is being dialyzed today according to her Saturday, Saturday, Saturday schedule. She got an extra session of ultrafiltration done yesterday because of fluid overload. Ultrafiltration goal today will be at least 2.5 kg as tolerated by her blood pressure. 2. Shortness of breath secondary to pulmonary edema and rhinovirus infection. The patient reports her breathing is getting better significantly. Her nebulizations are being changed to [id number]. Volume status is being optimized with dialysis. 3. Decompensated heart failure with reduced ejection fraction. Echocardiogram result is pending. The patient is getting [id number] ultrafiltration at hemodialysis to treat the lower extremity edema and pulmonary edema. 4. Anemia in end-stage renal disease. The patient is getting Aranesp with dialysis.
[2019-05-27] MEDS ORDERED: MOM 30ML SUSPENSION UDC PO PRN (13:15)
--- NOTE | 2019-05-27 15:00 | IPNPDOC ---
Date Seen The patient was seen on 05/27/19. Progress Note SUBJECTIVE: Patient was seen and examined this morning. She has received dialysis. She currently has no new complaints. She reports improvement in her breathing. She does admit to a continued cough and sputum production. She denies any fevers or chills. She continues to work with physical therapy . OBJECTIVE PHYSICAL EXAMINATION: VITAL SIGNS: Please see below. GENERAL: Awake, alert, and oriented. Appears in no acute distress. Sitting on chair comfortably HEENT: Atraumatic, normocephalic Eyes nonicteric. Trachea is midline CARDIOVASCULAR: Normal S1, S2, regular rate and rhythm, no clicks, rubs or murmurs. No JVD RESPIRATORY: Overall diminished breath sounds bilaterally. Crackles in the bases bilaterally. No wheezes. No dullness to percussion. Symmetric chest rise. No accessory muscle use ABDOMINAL: Obese, soft, nondistended, nontender to palpation in all 4 quadrants. No rebound tenderness or guarding. Normoactive bowel sounds throughout EXTREMITIES:. 1+ bilateral pitting edema. Right great toe area of ulceration bandaged NEUROLOGICAL: No focal neurological deficits PSYCHOLOGICAL: Mood and affect appear appropriate LABORATORY DATA, IMAGING STUDIES, MICROBIOLOGY: Please see below. Echocardiogram: Pending DVT prophylaxis ordered?: Eliquis 2.5 mg BID ASSESSMENT AND PLAN: Patient is an 79-year-old female who originally presented to [facility] with complaint of shortness of breath. Patient was found to have pulmonary edema with hypercarbic hypoxemic respiratory failure. She was placed on BiPAP and transferred to [facility]. On presentation, the patient's respiratory status improved. Nephrology was consulted for bedside emergent hemodialysis. Patient was continued on BiPAP with weaning. She is currently on room air with resolution of her pulmonary edema. The patient has received a chest CT was inserted bilateral pleural effusions. The patient had respiratory panel at [facility] which revealed rhinovirus. She is currently demonstrating improvement. She is continued on hemodialysis PROBLEMS: 1. Hypercarbic hypoxemic respiratory failure likely 2/2 pulmonary edema -Patient presented to [facility] in respiratory distress. This was felt to be secondary to pulmonary edema. Patient was placed on BiPAP and transferred to [facility] -Patient has received dialysis with significant improvement. She is planned for additional dialysis and removal of 2L of fluid. -Patient remains off of Bipap. Her respiratory distress was likely a combina tion of her pulmonary edema and Rhinovirus -Echocardiogram is pending. -Her respiratory status is close to her baseline 2. ESRD on HD M, W, F -Patient currently receives hemodialysis M,W,F. She has a tunneled hemodialysis catheter in her right chest wall. Patient was recently started on hemodialysis in December of 2018 -Nephrology consultation has been placed. Consultation is greatly appreciated -Patient received HD today 3. HFrEF -Patients echocardiogram in 2018 demonstrated a LVEF 15-20%. She currently has a dual chamber pace maker/AICD. -Echocardiogram ordered to assess LVEF and cardiac wall abnormalities. Currently pending 4. Diabetes Mellitus Type 2 -Continue Levemir 10 units -Sliding scale coverage ACHS 5. Paroxysmal Atrial Fibrillation -Patient has a history of A-fib. Currently in sinus with dual pacing. -100mg Amiodarone. Patient receives 200mg at home. Will restart home dose before discharge -Continue Eliquis 2.5 mg BID -Telemetry 5. Hypertension -Currently normotensive and receiving HD. Will hold home BP medications. 6. Rheumatoid arthritis -Patient takes Hydroxychloroquine. Currently holding 7. 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 Constipation -Patient has stated that she has not had a bowel movement since Saturday. -Bowel regimen ordered 9. DVT prophylaxis -Teds and Sequentials -Patient chronically anticoagulated on Eliquis 2.5 mg DISPOSITION: Patient will likely be discharged in 24-48 hours I saw and evaluated the patient. I agree with the findings and plan of care as documented in the above note VS, I&O, 24H, Fishbone Vital Signs/I&O Vital Signs Date Time Temp Pulse Resp B/P (MAP) Pulse Ox O2 Delivery O2 Flow Rate FiO2 05/27/19 12:25 97.0 82 18 108/62 (77) 96 05/26/19 04:00 1.0 05/25/19 14:30 40 I&O- Last 24 Hours up to 6 AM0 05/27/19 06:00 Intake Total 840 ml Output Total 2250 ml Balance -1410 ml Laboratory Data 24H LABS Laboratory Tests 2 05/26/19 16:58: Bedside Glucose (Misc Panel) 224H 05/26/19 20:56: Bedside Glucose (Misc Panel) 358H 05/27/19 05:49: Nucleated Red Blood Cells % (auto) 0.0, Anion Gap 7L, Glomerular Filtration Rate 10.6L, Calcium Level 9.1 05/27/19 12:32: Bedside Glucose (Misc Panel) 152H CBC/BMP Laboratory Tests 05/27/19 05:49 KENA FRANCE DO May 27, 2019 15:00 ROBBIE JUNIOR MD May 28, 2019 13:44
[2019-05-27] MEDS: IPRATROPIUM 0.5MG/ALBUTEROL 2.5MG INH SOL UD 3ML (DUONEB)(J7620) NEB PRN ×2 (15:20→20:36)
[2019-05-27] MEDS: LEVOTHYROXINE 125MCG TABLET (0.125MG) PO SCH (15:32)
[2019-05-27 16:00] VITALS: BP 101/59
[2019-05-27 20:00] VITALS: BP 103/59
[2019-05-27] MEDS: ATORVASTATIN 20 MG TAB PO SCH (20:38)
[2019-05-27] MEDS ORDERED: LEVEMIR (INSULIN DETEMIR) 1 UNITS/0.01ML SC SCH ×3 (21:00)
[2019-05-27] MEDS: SENNA 8.6 MG TAB (SENOKOT) PO PRN (21:32)
[2019-05-28] VITALS: BP 116/61
[2019-05-28 04:00] VITALS: BP 109/68
[2019-05-28 05:48] LABS: HEMATOCRIT 34.5 % (36.0-47.0); HEMOGLOBIN 11.3 g/dl (12.0-15.5); MEAN CORPUSCULAR HEMOGLOBIN 32.8 pg (27.0-33.0); MEAN CORPUSCULAR HGB CONC 32.8 g/dl (32.0-36.5); PLATELET COUNT, AUTOMATED 122 10^3/uL (150-450); RED BLOOD COUNT 3.45 10^6/uL (4.00-5.40); WHITE BLOOD COUNT 6.9 10^3/uL (4.0-10.0)
[2019-05-28 06:18] LABS: CREATININE FOR GFR 3.61 MG/DL (0.55-1.30); GLOMERULAR FILTRATION RATE 12.9 (>32)
[2019-05-28] MEDS: LEVOTHYROXINE 125MCG TABLET (0.125MG) PO SCH (06:41)
[2019-05-28 08:00] VITALS: BP 103/62
[2019-05-28] MEDS: IPRATROPIUM 0.5MG/ALBUTEROL 2.5MG INH SOL UD 3ML (DUONEB)(J7620) NEB SCH ×6 (08:00→23:58)
[2019-05-28] MEDS: HumaLOG INSULIN (NovoLOG) PER UNIT SC SCH ×4 (08:22→20:38)
[2019-05-28] MEDS: AMIODARONE 100MG TABLET (PACERONE) PO SCH (08:22)
[2019-05-28] MEDS: APIXABAN 2.5 MG TAB (ELIQUIS) PO SCH ×2 (08:22→21:00)
[2019-05-28] MEDS: GABAPENTIN 100 MG CAP PO SCH (08:22)
[2019-05-28] MEDS: SENNA 8.6 MG TAB (SENOKOT) PO PRN ×2 (08:23→23:29)
[2019-05-28] MEDS: CETIRIZINE (ZyrTEC) 10 MG TAB PO SCH (08:23)
--- NOTE | 2019-05-28 12:14 | IPNPDOC ---
Date Seen The patient was seen on 05/28/19. Progress Note SUBJECTIVE: Patient was seen and examined this morning. She currently has no new complaints. She states that she still has a cough although this has had some improvement. She states that her breathing has improved. She has been seen by physical therapy who has not cleared her for home discharge. She does still appear to have increased volume status and is planned to receive additional ultrafiltration today OBJECTIVE PHYSICAL EXAMINATION: VITAL SIGNS: Please see below. GENERAL: Awake, alert, and oriented. Appears in no acute distress. HEENT: Atraumatic, normocephalic Eyes nonicteric. Trachea is midline CARDIOVASCULAR: Normal S1, S2, regular rate and rhythm, no clicks, rubs or murmurs. No JVD RESPIRATORY: Overall diminished breath sounds bilaterally. Crackles in the bases bilaterally. No wheezes. No dullness to percussion. Symmetric chest rise. No accessory muscle use ABDOMINAL: Obese, soft, nondistended, nontender to palpation in all 4 quadrants. No rebound tenderness or guarding. Normoactive bowel sounds throughout EXTREMITIES:. 1+ bilateral pitting edema. Right great toe area of ulceration bandaged NEUROLOGICAL: No focal neurological deficits PSYCHOLOGICAL: Mood and affect appear appropriate LABORATORY DATA, IMAGING STUDIES, MICROBIOLOGY: Please see below. Echocardiogram: . DVT prophylaxis ordered?: Eliquis 2.5 mg BID ASSESSMENT AND PLAN: Patient is an 79-year-old female who originally presented to [facility] with complaint of shortness of breath. Patient was found to have pulmonary edema with hypercarbic hypoxemic respiratory failure. She was placed on BiPAP and transferred to [facility]. On presentation, the patient's respiratory status improved. Nephrology was consulted for bedside emergent hemodialysis. Patient was continued on BiPAP with weaning. She is currently on room air with resolution of her pulmonary edema. The patient has r eceived a chest CT was inserted bilateral pleural effusions. The patient had respiratory panel at [facility] which revealed rhinovirus. She has been seen by physical therapy and has not been cleared for discharge. She is planned to receive ultrafiltration today per Nephrology to improve her volume status PROBLEMS: 1. Hypercarbic hypoxemic respiratory failure likely 2/2 pulmonary edema -This has resolved. She is currently at her baseline in regards to respiratory status -Her volume status is not yet optimal and she is planned to receive Ultrafiltration today per Nephrology for better optimization. -Patient has Rhinovirus. This likely contributed to her respiratory decompensation 2. ESRD on HD M, W, F -Patient currently receives hemodialysis M,W,F. She has a tunneled hemodialy sis catheter in her right chest wall. Patient was recently started on hemodialysis in December of 2018 -Nephrology consultation has been placed. Consultation is greatly appreciated -Patient is to receive ultrafiltration today for better volume optimization 3. HFrEF -Patients echocardiogram in 2018 demonstrated a LVEF 15-20%. She currently has a dual chamber pace maker/AICD. -Echocardiogram ordered to assess LVEF and cardiac wall abnormalities. Currently pending 4. Diabetes Mellitus Type 2 -Continue Levemir 10 units -Sliding scale coverage ACHS 5. Paroxysmal Atrial Fibrillation -Patient has a history of A-fib. Currently in sinus with dual pacing. -100mg Amiodarone. Patient receives 200mg at home. Will restart home dose before discharge -Continue Eliquis 2.5 mg BID -Telemetry 5. Hypertension -Currently normotensive and receiving HD. Will hold home BP medications. 6. Rheumatoid arthritis -Patient takes Hydroxychloroquine. Currently holding 7. 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 Constipation -Patient has stated that she has not had a bowel movement since Saturday. -Bowel regimen ordered 9. DVT prophylaxis -Teds and Sequentials -Patient chronically anticoagulated on Eliquis 2.5 mg DISPOSITION: Patient has not passed physical therapy yet. Her volume is not yet optimized. Will likely be discharged in 24 hours pending PT clearance and volume optimization I saw and evaluated the patient. I agree with the findings and plan of care as documented in the above note VS, I&O, 24H, Jorge Luisbone Vital Signs/I&O Vital Signs Date Time Temp Pulse Resp B/P (MAP) Pulse Ox O2 Delivery O2 Flow Rate FiO2 05/28/19 08:00 97.1 81 18 103/62 (76) 97 05/26/19 04:00 1.0 05/25/19 14:30 40 I&O- Last 24 Hours up to 6 AM 05/28/19 06:00 Intake Total 520 ml Output Total 2100 ml Balance -1580 ml Laboratory Data 24H LABS Laboratory Tests 2 05/27/19 12:32: Bedside Glucose (Misc Panel) 152H 05/27/19 16:40: Bedside Glucose (Misc Panel) 170H 05/27/19 20:33: Bedside Glucose (Misc Panel) 268H 05/28/19 05:34: Nucleated Red Blood Cells % (auto) 0.0, Anion Gap 5L, Glomerular Filtration Rate 12.9L, Calcium Level 9.0 CBC/BMP Laboratory Tests 05/28/19 05:34 KENA FRANCE DO May 28, 2019 12:14 ROBBIE JUNIOR MD May 28, 2019 13:48
[2019-05-28] MEDS: LEVEMIR (INSULIN DETEMIR) 1 UNITS/0.01ML SC SCH ×2 (13:45→21:00)
--- NOTE | 2019-05-28 15:08 | IPN ---
DATE: 05/28/2019 SUBJECTIVE: The patient was seen and examined at the bedside this morning. She was sitting up and getting ready to eat her breakfast when I saw her. She was dialyzed yesterday, 2 liters of fluid was removed. She reports her shortness of breath is significantly better. She still reports mild lower extremity edema. She does report some mild amount of cough as well. OBJECTIVE: VITAL SIGNS: Temperature is 97.1 degrees fundi blood pressure 103/62, pulse is 81, respiratory of 18, saturating 97% on room air. Intake and output: Ultrafiltration with dialysis yesterday was 2 liters. Weight in the bed scale is 68.9 kg. PHYSICAL EXAMINATION: GENERAL: The patient is awake, alert, oriented times three, sitting up in the sofa no apparent distress. HEAD AND NECK EXAM: Extraocular muscles intact. Pupils equally round and reactive to light. Mucous membranes are moist. NECK: Supple. There is no jugular venous distention (JVD). CARDIOVASCULAR: S1, S2, regular rate. 2+ edema of the bilateral lower extremities. RESPIRATORY: Mildly decreased breath sounds at the bases with mild expiratory rhonchi. ABDOMEN: Soft, positive bowel sounds. Nontender. MUSCULOSKELETAL: No clubbing or cyanosis. Pulses are 2+. GUEST SERVICES: No focal deficit. Power is 5/5 in all extremities. LAB REVIEW: CBC showed WBC 6.9, hemoglobin 11.3, platelets of 122. BMP showed sodium 138, potassium 4 chloride 103, bicarb 30, BUN 27, creatinine is 3.6. CURRENT INPATIENT MEDICATIONS. The patient's medications were all reviewed by me. She is getting [id number] nebulizations every 4 hours now. Insulin Levemir dose has been changed to 20 units subcu nightly. ASSESSMENT/PLAN: 1. End-stage renal disease on hemodialysis: The patient's regular dialysis days are Saturday, Saturday, Saturday. However, because of fluid overload, she is getting every day dialysis or ultrafiltration. She got the regular hemodialysis done yesterday. She will get 3 hours of ultrafiltration today and I will remove to more liters of fluid as tolerated by her blood pressure. 2. Shortness of breath secondary to rhinovirus infection. The patient is getting nebulizations [id number] every 4 hours. Pulmonary edema has improved now. 3. Decompensated heart failure with reduced ejection fraction. The patient's volume status is significantly better. However, she still has some lower extremity edema while she is here I will do daily ultrafiltration on dialysis. She is going to have another session of ultrafiltration done today in the morning. 4. Diabetes mellitus type 2 insulin dependent. The patient's insulin dose was increased to 20 units subcu daily. However, her home dose is 20 units subcu twice a day. I am going to change it back to the home dose. 5. Anemia in end-stage renal disease: Hemoglobin level is 11.3 which is optimal. No need of Aranesp administration.
[2019-05-28 16:00] VITALS: BP 106/58
[2019-05-28 20:00] VITALS: BP 107/64
[2019-05-28] MEDS: ATORVASTATIN 20 MG TAB PO SCH (21:00)
[2019-05-29] VITALS: BP 104/61
[2019-05-29] MEDS ORDERED: SLF 3 ML SYR IV PRN (03:30)
[2019-05-29 04:00] VITALS: BP 108/58
[2019-05-29] MEDS: IPRATROPIUM 0.5MG/ALBUTEROL 2.5MG INH SOL UD 3ML (DUONEB)(J7620) NEB SCH ×6 (04:20→23:19)
[2019-05-29] MEDS: SLF 3 ML SYR IV SCH ×3 (05:45→20:29)
[2019-05-29] MEDS: CETIRIZINE (ZyrTEC) 10 MG TAB PO SCH (05:45)
[2019-05-29] MEDS: GABAPENTIN 100 MG CAP PO SCH (05:46)
[2019-05-29] MEDS: LEVOTHYROXINE 125MCG TABLET (0.125MG) PO SCH (05:46)
[2019-05-29 06:10] LABS: HEMATOCRIT 38.1 % (36.0-47.0); HEMOGLOBIN 12.3 g/dl (12.0-15.5); MEAN CORPUSCULAR HEMOGLOBIN 31.9 pg (27.0-33.0); MEAN CORPUSCULAR HGB CONC 32.3 g/dl (32.0-36.5); PLATELET COUNT, AUTOMATED 126 10^3/uL (150-450); RED BLOOD COUNT 3.85 10^6/uL (4.00-5.40); WHITE BLOOD COUNT 8.5 10^3/uL (4.0-10.0)
[2019-05-29 06:32] LABS: CALCIUM LEVEL 9.5 MG/DL (8.8-10.2); CREATININE FOR GFR 4.55 MG/DL (0.55-1.30); GLOMERULAR FILTRATION RATE 9.9 (>32); POTASSIUM SERUM 4.5 MEQ/L (3.5-5.1)
[2019-05-29 08:00] VITALS: BP 96/59
[2019-05-29] MEDS: HumaLOG INSULIN (NovoLOG) PER UNIT SC SCH ×4 (08:17→20:28)
[2019-05-29] MEDS: LEVEMIR (INSULIN DETEMIR) 1 UNITS/0.01ML SC SCH ×2 (08:25→20:28)
[2019-05-29] MEDS ORDERED: HEPARIN 1,000 UNITS/ML 10ML VIAL (FOR RADIOLOGY& DIALYSIS ONLY) XX ONE (10:15)
[2019-05-29] MEDS ORDERED: HEPARIN 1,000 UNITS/ML 10ML VIAL (FOR RADIOLOGY& DIALYSIS ONLY) IV ONE (10:15)
[2019-05-29] MEDS ORDERED: DOCUSATE SOD LIQ 100MG/10ML UDC PO ONE (11:15)
--- NOTE | 2019-05-29 11:18 | IPNPDOC ---
Date Seen The patient was seen on 05/29/19. Progress Note SUBJECTIVE: Ms. Joel was seen and examined today at the bedside during dialysis. She states she is not having any issues with her breathing and she feels well. She had UF yesterday and 2000cc were removed without any issues. She did get some leg cramping at the end of dialysis. She has constipation and does not think she has had a bowel movement for several days despite being on Senna. Docusate will be added. Otherwise, she is set to be discharged to [facility] when a bed opens up for her. OBJECTIVE: PHYSICAL EXAMINATION: VITAL SIGNS: Please see below. GENERAL APPEARANCE: laying in bed in dialysis, calm, cooperative, appears stated age, no acute distress HEENT: EOMI, PERRLA; neck is supple with no thyromegaly or lymphadenopathy RESPIRATORY: Decreased breath sounds at the bases bilaterally with some expiratory rhonchi appreciated CARDIOVASCULAR: JVD slightly elevated; RRR without murmurs/rubs/gallops ABDOMEN: Soft, nontender to palpation, no masses/organomegaly EXTREMITIES: 2+ pitting edema of legs bilaterally NEUROLOGICAL: No obvious focal deficits PSYCHIATRIC: normal mood/affect Skin: No rashes or ulcers. LN: No significant cervical or inguinal lymphadenopathy LABORATORY DATA, IMAGING STUDIES, MICROBIOLOGY: Please see below. ASSESSMENT AND PLAN: This is an 79 YO F with history of ESRD on HD who presented with SOB found to have rhinovirus infection and fluid overload. She is currently undergoing HD according to her usual schedule in addition to UF to remove excess fluid. PROBLEMS: 1. ESRD on HD M,W,F: -Patient will have HD today and UF tomorrow to remove excess fluid. She still has mildly elevated JVD and lower extremity edema. 2. SOB 2/2 Rhinovirus infection: -She is receiving duonebs Q4h with subjective improvement breathing. Suspect her breathing will also improve with HD and more fluid removal. 3. Decompensated Heart Failure with reduced EF: -Lower extremity edema and crackles likely to improve with dialysis 4. DM2 on insulin: -Blood sugars are well-controlled -Continue Levemir and SSI protocol 5. Anemia of ESRD: -Stable. Hgb 12.3 today. DISPOSITION: HD and UF for more fluid removal tomorrow if she is not discharged today. VS, I&O, 24H, Fishbone Vital Signs/I&O Vital Signs Date Time Temp Pulse Resp B/P (MAP) Pulse Ox O2 Delivery O2 Flow Rate FiO2 05/29/19 08:00 98.4 80 18 96/59 (71) 97 Room Air 05/26/19 04:00 1.0 05/25/19 14:30 40 I&O- Last 24 Hours up to 6 AM 05/29/19 06:00 Intake Total 480 ml Output Total 2100 ml Balance -1620 ml Laboratory Data 24H LABS Laboratory Tests 2 05/28/19 13:36: Bedside Glucose (Misc Panel) 283H 05/28/19 17:15: Bedside Glucose (Misc Panel) 207H 05/28/19 20:32: Bedside Glucose (Misc Panel) 186H 05/29/19 05:56: Nucleated Red Blood Cells % (auto) 0.2H, Anion Gap 6L, Glomerular Filtration Rate 9.9L, Calcium Level 9.5 CBC/BMP Laboratory Tests 05/29/19 05:56 GME ATTESTATION GME ATTESTATION My faculty preceptor for this patient encounter was physically present during the encounter and was fully available. All aspects of the patient interview, examination, medical decision making process, and medical care plan development were reviewed and approved by the faculty preceptor. The faculty preceptor is aware and concurs with the plan as stated in the body of this note and will attest to such by his/her cosignature. OPAL MARTINEZ MD May 29, 2019 11:18
[2019-05-29 12:53] VITALS: BP 90/57
[2019-05-29] MEDS: AMIODARONE 100MG TABLET (PACERONE) PO SCH (14:10)
[2019-05-29] MEDS: APIXABAN 2.5 MG TAB (ELIQUIS) PO SCH ×2 (14:10→20:26)
--- NOTE | 2019-05-29 15:39 | IPNPDOC ---
Date Seen The patient was seen on 05/29/19. Progress Note SUBJECTIVE: Patient was seen and examined this morning. She currently has no new complaints. She has been continued on dialysis per her normal schedule today. She is planned to be discharged tomorrow. There have been no adverse events overnight. She currently admits to improvement in her breathing. OBJECTIVE PHYSICAL EXAMINATION: VITAL SIGNS: Please see below. GENERAL: Awake, alert, and oriented. Appears in no acute distress. Sitting up in chair comfortably HEENT: Atraumatic, normocephalic Eyes nonicteric. Trachea is midline CARDIOVASCULAR: Normal S1, S2, regular rate and rhythm, no clicks, rubs or murmurs. No JVD RESPIRATORY: Overall diminished breath sounds bilaterally. Crackles in the bases bilaterally. No wheezes. No dullness to percussion. Symmetric chest rise. No accessory muscle use ABDOMINAL: Obese, soft, nondistended, nontender to palpation in all 4 quadrants. No rebound tenderness or guarding. Normoactive bowel sounds throughout EXTREMITIES:. 1+ bilateral pitting edema. Full and equal pulses in bilateral upper and lower extremities NEUROLOGICAL: No focal neurological deficits PSYCHOLOGICAL: Mood and affect appear appropriate LABORATORY DATA, IMAGING STUDIES, MICROBIOLOGY: Please see below. Echocardiogram: Report Pending DVT prophylaxis ordered?: Mechanical ASSESSMENT AND PLAN: Patient is an 79-year-old female who originally presented to [facility] with complaint of shortness of breath. Patient was found to have pulmonary edema with hypercarbic hypoxemic respiratory failure. She was placed on BiPAP and transferred to [facility]. On presentation, the patient's respiratory status improved. Nephrology was consulted for bedside emergent hemodialysis. Patient was continued on BiPAP with weaning. She is currently on room air with resolution of her pulmonary edema. The patient has received a chest CT was inserted bilateral pleural effusions. The patient had respiratory panel at [facility] which revealed rhinovirus. Patient has been cleared by physical therapy for home with services. She has received dialysis today per her normal schedule. She is currently planned to be discharged tomorrow AM PROBLEMS: 1. Hypercarbic hypoxemic respiratory failure likely 2/2 pulmonary edema -This has resolved. She is currently at her baseline in regards to respiratory status -Her volume status appears appropriate. -She is continued on her current dialysis schedule -Patient has tested positive for Rhinovirus 2. ESRD on HD M, W, F -Patient currently receives hemodialysis M,W,F. She has a tunneled hemodialysis catheter in her right chest wall. Patient was recently started on hemodialysis in December of 2018 -Nephrology consultation has been placed. Consultation is greatly appreciated -Patient has received dialysis today per her normal dialysis schedule 3. HFrEF -Patients echocardiogram in 2018 demonstrated a LVEF 15-20%. She currently has a dual chamber pace maker/AICD. -Echocardiogram ordered to assess LVEF and cardiac wall abnormalities. Currently pending -Patients acute exacerbation has resolved 4. Diabetes Mellitus Type 2 -Continue Levemir 10 units -Sliding scale coverage ACHS 5. Paroxysmal Atrial Fibrillation -Patient has a history of A-fib. Currently in sinus with dual pacing. -100mg Amiodarone. Patient receives 200mg at home. Will restart home dose before discharge -Continue Eliquis 2.5 mg BID 5. Hypertension -Currently normotensive and receiving HD. Will hold home BP medications. 6. Rheumatoid arthritis -Patient takes Hydroxychloroquine. Currently holding 7. 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 Constipation -Patient has stated that she has not had a bowel movement since Saturday. -Bowel regimen ordered 9. DVT prophylaxis -Teds and Sequentials -Patient chronically anticoagulated on Eliquis 2.5 mg DISPOSITION: Patient is currently pending discharge likely within 24 hours I saw and evaluated the patient. I agree with the findings and plan of care as documented in the above note VS, I&O, 24H, Fishbone Vital Signs/I&O Vital Signs Date Time Temp Pulse Resp B/P (MAP) Pulse Ox O2 Delivery O2 Flow Rate FiO2 05/29/19 08:00 98.4 80 18 96/59 (71) 97 Room Air 05/26/19 04:00 1.0 05/25/19 14:30 40 I&O- Last 24 Hours up to 6 AM 05/29/19 06:00 Intake Total 480 ml Output Total 2100 ml Balance -1620 ml Laboratory Data 24H LABS Laboratory Tests 2 05/28/19 17:15: Bedside Glucose (Misc Panel) 207H 05/28/19 20:32: Bedside Glucose (Misc Panel) 186H 05/29/19 05:56: Nucleated Red Blood Cells % (auto) 0.2H, Anion Gap 6L, Glomerular Filtration Rate 9.9L, Calcium Level 9.5 05/29/19 12:54: Bedside Glucose (Misc Panel) 95 CBC/BMP Laboratory Tests 05/29/19 05:56 KENA FRANCE DO May 29, 2019 15:39 ROBBIE JUNIOR MD May 31, 2019 14:41
[2019-05-29 18:06] VITALS: BP 91/56
[2019-05-29 20:21] VITALS: BP 96/57
[2019-05-29] MEDS: ACETAMINOPHEN TAB 650MG DOSE (2X325MG) PO PRN (20:26)
[2019-05-29] MEDS: ATORVASTATIN 20 MG TAB PO SCH (20:26)
--- NOTE | 2019-05-29 23:54 | ECHO ---
DATE OF PROCEDURE: 05/25/2019 REFERRING PHYSICIAN: Dr. Alban Orlando INDICATION: Dyspnea. HEIGHT: 61 inches WEIGHT: 73 kilograms 2D MEASUREMENTS: Aortic root: 3.0 cm Left atrium: 4.3 cm Ventricular septum: 1.14 cm Posterior wall: 0.88 cm Left ventricle diastole: 7.3 cm Aortic annulus: 1.9 cm Inferior vena cava: 2.2 cm DOPPLER MEASUREMENTS: Aortic valve velocity: 126 cm/s LVOT velocity: 52.2 cm/s LVOT VTI: 9.8 cm No aortic regurgitation. Moderate mitral regurgitation. Mild tricuspid regurgitation. Estimated right ventricle systolic pressure: 55-60 mmHg assuming a pressure of 5-10 mmHg. Pulmonary acceleration time: 87 ms DESCRIPTION: Rhythm appeared to be biventricular paced. Image quality was adequate. This was a 2D, M-mode, color flow Doppler and pulse wave Doppler examination and included mitral annular tissue Doppler. CONCLUSIONS: 1. Severely dilated left ventricle with appearance of akinesis of the basal inferior and basal inferolateral segments with severe global hypokinesis elsewhere. Severe reduction in overall left ventricular (LV) systolic function. Left ventricular ejection fraction (LVEF) 20% by visual estimate. Appearance of low cardiac output state. 2. Normal right ventricle size and systolic function. Suggestive of moderate elevation of estimated right ventricle systolic pressure. 3. Moderate aortic valve sclerosis of a 3-cusp aortic valve. No aortic stenosis or regurgitation. 4. Mild mitral annular calcification. Moderate mitral regurgitation. 5. At least mild left atrial dilatation. 6. Left pleural effusion. 7. Tiny pericardial effusion. 8. Presence of an implantable cardioverter defibrillator (ICD) lead coursing towards the right ventricle apex. Appearance of a coronary sinus left ventricle pacing lead.
[2019-05-30 02:24] VITALS: BP 93/48
[2019-05-30] MEDS: ACETAMINOPHEN TAB 650MG DOSE (2X325MG) PO PRN (03:36)
[2019-05-30] MEDS: IPRATROPIUM 0.5MG/ALBUTEROL 2.5MG INH SOL UD 3ML (DUONEB)(J7620) NEB SCH ×4 (04:00→14:58)
[2019-05-30 06:05] VITALS: BP 94/51
[2019-05-30] MEDS: APIXABAN 2.5 MG TAB (ELIQUIS) PO SCH (06:42)
[2019-05-30] MEDS: SLF 3 ML SYR IV SCH ×2 (06:42→15:25)
[2019-05-30] MEDS: LEVOTHYROXINE 125MCG TABLET (0.125MG) PO SCH (06:43)
[2019-05-30] MEDS: CETIRIZINE (ZyrTEC) 10 MG TAB PO SCH (06:43)
[2019-05-30] MEDS: GABAPENTIN 100 MG CAP PO SCH (06:43)
[2019-05-30 07:13] LABS: HEMATOCRIT 38.3 % (36.0-47.0); HEMOGLOBIN 12.3 g/dl (12.0-15.5); MEAN CORPUSCULAR HEMOGLOBIN 32.8 pg (27.0-33.0); MEAN CORPUSCULAR HGB CONC 32.1 g/dl (32.0-36.5); MEAN CORPUSCULAR VOLUME 102.1 fl (80.0-96.0); PLATELET COUNT, AUTOMATED 135 10^3/uL (150-450); RED BLOOD COUNT 3.75 10^6/uL (4.00-5.40); WHITE BLOOD COUNT 7.5 10^3/uL (4.0-10.0)
[2019-05-30 07:33] LABS: CALCIUM LEVEL 9.5 MG/DL (8.8-10.2); CREATININE FOR GFR 4.08 MG/DL (0.55-1.30); GLOMERULAR FILTRATION RATE 11.2 (>32)
[2019-05-30] MEDS: LEVEMIR (INSULIN DETEMIR) 1 UNITS/0.01ML SC SCH (08:14)
[2019-05-30] MEDS: HumaLOG INSULIN (NovoLOG) PER UNIT SC SCH ×3 (08:14→17:55)
[2019-05-30] MEDS ORDERED: MIDODRINE 5 MG TAB PO ONE (09:00)
[2019-05-30] MEDS ORDERED: HEPARIN 1,000 UNITS/ML 10ML VIAL (FOR RADIOLOGY& DIALYSIS ONLY) IV ONE (11:00)
--- NOTE | 2019-05-30 11:16 | IPNPDOC ---
Date Seen The patient was seen on 05/30/19. Progress Note NEPHROLOGY SERVICE PROGRESS NOTE: SUBJECTIVE: Ms. Joel was seen and examined today at the bedside during dialysis. She states she is not having any issues with her breathing and she feels well. She had UF yesterday and only 1300 was removed because she was getting hypotensive toward the end of her session. She is dialyzed today with a goal of 2L and was given Midodrine for her BP. Otherwise, she has no complaints. She will most likely be discharged tomorrow. OBJECTIVE: PHYSICAL EXAMINATION: VITAL SIGNS: Please see below. GENERAL APPEARANCE: laying in bed in dialysis, calm, cooperative, appears stated age, no acute distress HEENT: EOMI, PERRLA; neck is supple with no thyromegaly or lymphadenopathy RESPIRATORY: Faint crackles heard at the bases bilaterally with some expiratory rhonchi CARDIOVASCULAR: JVD slightly elevated; RRR without murmurs/rubs/gallops ABDOMEN: Soft, nontender to palpation, no masses/organomegaly EXTREMITIES: 1+ pitting edema of legs bilaterally NEUROLOGICAL: No obvious focal deficits PSYCHIATRIC: normal mood/affect Skin: No rashes or ulcers. LN: No significant cervical or inguinal lymphadenopathy LABORATORY DATA, IMAGING STUDIES, MICROBIOLOGY: Please see below. ASSESSMENT AND PLAN: This is an 79 YO F with history of ESRD on HD who presented with SOB found to have rhinovirus infection and fluid overload. She is currently undergoing HD according to her usual schedule in addition to UF to remove excess fluid. PROBLEMS: 1. ESRD on HD M,W,F: -Patient will have UF today with goal to remove 2L. She had some hypotension and UF was stopped early yesterday for this reason; therefore, she was given a one- time dose of Midodrine. 2. SOB 2/2 Rhinovirus infection: -She is receiving duonebs Q4h with subjective improvement breathing. Suspect her breathing will also improve with HD and more fluid removal. 3. Decompensated Heart Failure with reduced EF: -Lower extremity edema and crackles likely to improve with dialysis 4. DM2 on insulin: -Blood sugars are well-controlled -Continue Levemir and SSI protocol 5. Anemia of ESRD: -Stable. Hgb 12.3 today. DISPOSITION: UF for more fluid removal today and possible discharge tomorrow VS, I&O, 24H, Fishbone Vital Signs/I&O Vital Signs Date Time Temp Pulse Resp B/P (MAP) Pulse Ox O2 Delivery O2 Flow Rate FiO2 05/30/19 06:05 98.1 85 18 94/51 (65) 98 Room Air 05/26/19 04:00 1.0 05/25/19 14:30 40 I&O- Last 24 Hours up to 6 AM 05/30/19 06:00 Intake Total 1660 ml Output Total 1400 ml Balance 260 ml Laboratory Data 24H LABS Laboratory Tests 2 05/29/19 12:54: Bedside Glucose (Misc Panel) 95 05/29/19 16:54: Bedside Glucose (Misc Panel) 220H 05/29/19 20:18: Bedside Glucose (Misc Panel) 177H 05/30/19 06:54: Nucleated Red Blood Cells % (auto) 0.0, Anion Gap 6L, Glomerular Filtration Rate 11.2L, Calcium Level 9.5 CBC/BMP Laboratory Tests 05/30/19 06:54 GME ATTESTATION GME ATTESTATION My faculty preceptor for this patient encounter was physically present during the encounter and was fully available. All aspects of the patient interview, examination, medical decision making process, and medical care plan development were reviewed and approved by the faculty preceptor. The faculty preceptor is aw are and concurs with the plan as stated in the body of this note and will attest to such by his/her cosignature. OPAL MARTINEZ MD May 30, 2019 11:16
[2019-05-30] MEDS: AMIODARONE 100MG TABLET (PACERONE) PO SCH (13:20)
[2019-05-30 14:00] VITALS: BP 95/58
--- NOTE | 2019-05-30 17:20 | DS.PDOC ---
Discharge Summary General Date of Admission May 25, 2019 at 13:20 Date of Discharge 05/30/19 Primary Care Physician: CARA FRANCO MD Attending Physician: ROBBIE JUNIOR MD Specialist/Consultants Involve: JOSE FLETCHER MD Discharge Summary PROCEDURES PERFORMED DURING STAY: None. ADMITTING DIAGNOSES: 1. Hypercarbic hypoxemic restaurant failure secondary to pulmonary edema 2. End-stage renal disease 3. Heart failure with reduced ejection fraction 4. Diabetes mellitus type 2 5. Paroxysmal atrial fibrillation DISCHARGE DIAGNOSES: 1. Hypercarbic hypoxemic restaurant failure secondary to pulmonary edema 2. End-stage renal disease 3. Heart failure with reduced ejection fraction 4. Diabetes mellitus type 2 5. Paroxysmal atrial fibrillation COMPLICATIONS/CHIEF COMPLAINT: Pulmonary Edema, Respiratory Failure. HISTORY OF PRESENT ILLNESS: Patient is an 79-year-old female who presented to [facility] for shortness of breath. She has a past medical history significant for end-stage renal disease on hemodialysis, rheumatoid arthritis, paroxysmal atrial fibrillation, diabetes mellitus type 2, and heart failure with preserved ejection fraction with left ventricular ejection fraction 15-20% estimated by echocardiogram in 2018. On presentation to [facility], patient was noted to be hypoxemic and placed on nasal cannula 4 L. Her arterial blood gas revealed have her hypercarbic hypoxemic restaurant failure. Patient received a chest x-ray which revealed vascular congestion cystoscopy. Pulmonary edema. Patient was placed on BiPAP and transferred to [facility] for emergent hemodialysis. On resuscitation to [facility], the patient was awake and alert. She did appear to be in acute distress and was continued on BiPAP. She was seen by nephrology for emergent hemodialysis. After receiving dialysis. She was continued on BiPAP. The patient showed improvement and was weaned off BiPAP and placed on nasal cannula. When the patient was more awake and alert, further history was obtained. Patient stated that the week previously, she had developed some mild shortness of breath has gradually worsened. She stated this morning she woke up significantly short of breath and presented to [facility]. She stated that she has had a cough. Which has been going on for approximately 1 week. She does not wears of daily, but does feel that she has increased swelling in her legs. She states that she is compliant with her hemodialysis and makes all her scheduled appointment. She denies any fever, but did state that she had chills for the past week. A respiratory panel was completed at [facility] which revealed positive for rhinovirus. Echocardiogram was obtained and the results were reviewed. Patient has a severely dilated left ventricle with appearance of akinesis of the basal inferior and basal inferolateral segments with severe global hypokinesis elsewhere. There is severe reduction in overall left ventricular systolic function and left ventricular ejection fraction 20% by visual estimate. During the patient's hospital course, she continued to receive hemodialysis to achieve a optimal volume status. Patient continued to show improvement in her breathing, but they secondary to improvement in her via status as well as overcoming her acute upper respiratory tract infection with rhinovirus. Patient stated that she had some congestion/midsternal discomfort with coughing. This has resolved from the patient's hospital course. She was seen by physical therapy who has worked with her and found her fit for discharge to go home with services. DISCHARGE MEDICATIONS: Please see below. ALLERGIES: Please see below. PHYSICAL EXAMINATION ON DISCHARGE: VITAL SIGNS: Please see below. GENERAL: Awake, alert and oriented, appears in no acute distress. lying in bed, currently receiving hemodialysis HEENT: Atraumatic, normocephalic. Eyes are anicteric. Trachea is midline. E levated jugular venous distention NECK:. No palpable cervical, axillary or supraclavicular lymphadenopathy CARDIOVASCULAR EXAMINATION: Normal S1, S2, regular rate and rhythm. No clicks or rubs or murmurs RESPIRATORY EXAMINATION:. Overall diminished breath sounds bilaterally with crackles in the bases. No wheezing noted. No dullness to percussion Symmetric chest rise. No accessory muscle use ABDOMINAL EXAMINATION: Obese, soft, nondistended, nontender to palpation all 4 quadrants. No rebound tenderness or guarding. Normoactive bowel sounds throughout EXTREMITIES:. 1+ bilateral pitting edema. Full and equal pulses bilateral upper and lower extremities SKIN:. No rashes or lesions NEUROLOGICAL EXAMINATION:. No focal neurological deficits PSYCHIATRIC EXAMINATION:. Mood and affect appear appropriate LABORATORY DATA: Please see below. IMAGING: Single portable chest x-ray: 05/25/2019. Indication: Dyspnea. Comparison: 12/22/2018. Findings: Increased air space opacities are noted particulate inferior on the right as well as within the left upper lung. Cardiomegaly is stable. Small left-sided pleural effusion is noted. There is no evidence of pneumothorax. Lines and tubes are stable. Impression: New air space disease, particular involving the right lower and left upper lungs concerning for pneumonia. Electronically Signed by Sahil Quintana DO 05/25/2019 03:05 P Portable chest x-ray: Single view. 7:56 p.m. film. History: Post hemodialysis. Rule out pulmonary edema versus pneumonia. Comparison chest x-ray May 25, 2019, 1:56 p.m. film . Findings: A tunneled central venous catheter is noted on the right with its tip in the expected location of the SVC right atrial junction. A multilead pacemaker is seen in the right heart via the left side. There are epicardial pacemaker leads as well. Oxygen delivery tubing and monitoring electrodes are observed. The heart is moderately enlarged. There are some increased markings in the right base unchanged from the film done earlier this date. This appears to be a new finding compared with the December 22, 2018 prior study. There is no chava pleural effusion. Impression: Suspected infiltrate right base. Moderate cardiomegaly. No chava pulmonary edema or pleural effusion seen. Electronically Signed by Brad Thomas MD 05/26/2019 11:[address] chest without contrast: History: Infiltrate right base. Rule out pneumonia. Comparison chest x-ray May 25, 2019. Findings: There are small bilateral pleural effusions. No pericardial effusion is seen. There is marked four-chamber cardiomegaly with extensive vascular calcification. Pacemaker leads are noted. A right sided tunnel catheter terminates at the SVC right atrial junction. No hilar or mediastinal mass or adenopathy is observed. There is bibasilar discoid atelectasis in the lower lobes bilaterally. There is no visible lower lobe infiltrate. There are some alveolar opacities in the right upper lobe in a peribronchovascular distribution which may be early inflammatory change or mild edema. There is a 4 mm noncalcified pulmonary nodule in the right upper lobe lung apex visible on page 19 of 93 in series 201 of today's study. There is a calcified granuloma in the left upper lobe on page 36. There is a 2 mm noncalcified nodule in the right lung in the upper lobe on page 46. No more significant pulmonary nodule is appreciated. No bony destructive lesion is seen. Epicardial pacemaker leads are noted coursing through the pleural space on the left. Impression: Small bilateral pleural effusions, pacemaker wires and central lines as above. Cardiomegaly. Bibasilar atelectasis. Subtle alveolar opacity pattern in the right upper lobe may reflect early inflammatory infiltrate. Scattered subcentimeter pulmonary nodules. Electronically Signed by Brad Thomas MD 05/26/2019 11:32 A PROGNOSIS: Fair ACTIVITY: As tolerated. DIET: Consistent carbohydrate, no salt added. Renal diet DISCHARGE PLAN:. Patient will be discharged home with services. She is to follow-up with her primary care physician in 7-10 days. She is to follow-up with nephrology for ongoing hemodialysis. Patient was found to have a polycythemia which is likely due to hemoconcentration from fluid removal however, patient will need further workup of her polycythemia. DISCHARGE CONDITION: Stable. I saw and evaluated the patient. I agree with the findings and plan of care as documented in the documenters note. I spent 45 minutes coordinating this patient's discharge. Vital Signs/I&Os Vital Signs Date Time Temp Pulse Resp B/P (MAP) Pulse Ox O2 Delivery O2 Flow Rate FiO2 05/30/19 14:00 97.9 79 18 95/58 (70) 97 Room Air 05/26/19 04:00 1.0 05/25/19 14:30 40 I&O- Last 24 Hours up to 6 AM 05/30/19 06:00 Intake Total 1660 ml Output Total 1400 ml Balance 260 ml Laboratory Data Labs 24H Laboratory Tests 2 05/29/19 20:18: Bedside Glucose (Misc Panel) 177H 05/30/19 06:54: Nucleated Red Blood Cells % (auto) 0.0, Anion Gap 6L, Glomerular Filtration Rate 11.2L, Calcium Level 9.5 05/30/19 12:23: Bedside Glucose (Misc Panel) 217H CBC/BMP Laboratory Tests 05/30/19 06:54 FSBS Laboratory Tests Test 05/29/19 20:18 05/30/19 12:23 Range/Units Bedside Glucose (Misc Panel) 177 217 83-110 MG/DL Discharge Medications Scheduled Amiodarone HCl (Amiodarone HCl) 200 Mg Tab, 200 MG PO DAILY, (Reported) Apixaban (Eliquis) 2.5 Mg Tablet, 2.5 MG PO BID, (Reported) Atorvastatin Calcium (Atorvastatin Calcium) 20 Mg Tab, 20 MG PO QHS, (Reported) Carboxymethyl/Glycerin/Poly80 (Refresh Optive Advanced Drops) 1 Claudia Claudia, 1 DROP OU DAILY, (Reported) Carvedilol (Carvedilol) 6.25 Mg Tablet, 6.25 MG PO BID, (Reported) Cetirizine HCl (Cetirizine HCl) 10 Mg Tablet, 10 MG PO DAILY, (Reported) Gabapentin (Gabapentin) 100 Mg Cap, 100 MG PO DAILY, (Reported) Hydroxychloroquine Sulfate (Hydroxychloroquine Sulfate) 200 Mg Tab, 200 MG PO BID, (Reported) Insulin Aspart (Novolog Flexpen) 100 Unit/Ml Inj, 1 DOSE SC AC, (Reported) PER SLIDING SCALE Insulin Detemir (Levemir Flextouch) 100 Unit/Ml Inj, 20 UNIT SC BID, (Reported) Levothyroxine Sodium (Synthroid) 125 Mcg Tablet, 125 MCG PO DAILY, (Reported) Mirtazapine (Mirtazapine) 15 Mg Tab.rapdis, 7.5 MG PO QHS, (Reported) Vit B Comp No.3/Folic/C/Biotin (Althea-Jett Rx Tablet) 1 Each Tablet, 1 TAB PO DAILY, (Reported) Scheduled PRN Albuterol Sulf (Albuterol Sulfate) 2.5 Mg/3 Ml Vial.neb, 2.5 MG INH Q6H PRN for SHORTNESS OF BREATH, (Reported) Albuterol Sulfate (Ventolin Hfa) 18 Gm Hfa.aer.ad, 2 PUFF INH Q4H PRN for SHORTNESS OF BREATH, (Reported) Carbamide Peroxide (Debrox) 15 Ml Drops, 1 DROP OU BID PRN for EARWAX, (Reported) Allergies Coded Allergies: ENVIROMENTAL (Verified Allergy, Unknown, DUST, MILDEW, 07/27/18) TAPE (Unverified Allergy, Unknown, BLISTERS, 11/20/18) hydromorphone (Verified Adverse Reaction, Mild, ITCHING, 11/20/18) oxycodone (Verified Adverse Reaction, Mild, ITCHING, 11/20/18) KENA FRANCE DO May 30, 2019 17:20 ROBBIE JUNIOR MD May 31, 2019 14:48
== END 2019-05-30 18:20 | disposition home health service (06) | DRG 291 ==
LOC: M ICU 13:20 → M PCU 05-26 12:03 → M MS5PR 05-29 08:55
PROVIDERS: ADMIT Internal Medicine Nephrology; ATTEND Internal Medicine Nephrology
PROC: 5A1D70Z Performance of Urinary Filtration, Intermittent, Less than 6 Hours Per Day (ICD-10-PCS; principal; 2019-05-25)
DX: I13.2 Hypertensive heart and chronic kidney disease with heart failure and with stage 5 chronic kidney disease, or end stage renal disease (principal); I50.21 Acute systolic (congestive) heart failure; J96.02 Acute respiratory failure with hypercapnia; N18.6 End stage renal disease; J96.01 Acute respiratory failure with hypoxia; J18.9 Pneumonia, unspecified organism; J81.0 Acute pulmonary edema; Z77.22 Contact with and (suspected) exposure to environmental tobacco smoke (acute) (chronic); I48.0 Paroxysmal atrial fibrillation; M06.9 Rheumatoid arthritis, unspecified; Z95.810 Presence of automatic (implantable) cardiac defibrillator; E11.40 Type 2 diabetes mellitus with diabetic neuropathy, unspecified; J98.4 Other disorders of lung; E03.9 Hypothyroidism, unspecified; E11.22 Type 2 diabetes mellitus with diabetic chronic kidney disease; Z79.4 Long term (current) use of insulin; Z79.899 Other long term (current) drug therapy; Z88.8 Allergy status to other drugs, medicaments and biological substances; Z91.09 Other allergy status, other than to drugs and biological substances; Z91.048 Other nonmedicinal substance allergy status; Z88.5 Allergy status to narcotic agent; E87.5 Hyperkalemia; D63.1 Anemia in chronic kidney disease; B34.8 Other viral infections of unspecified site; E87.70 Fluid overload, unspecified; K59.00 Constipation, unspecified; Z79.01 Long term (current) use of anticoagulants; Z99.2 Dependence on renal dialysis

== ENCOUNTER 2019-07-03 12:57 | Inpatient (IN) | payer MEDICARE ==
[~2019-07-03 12:57] MED LIST changes: +CARV6.25 PO; +RENATAB6 PO
[2019-07-03 15:15] VITALS: BP 115/63
--- NOTE | 2019-07-03 15:25 | HPEPDOC ---
[facility] Medical History & Physical Date of Admission Jul 03, 2019 Date of Service: Jul 03, 2019 History and Physical CHIEF COMPLAINT: SOB HISTORY OF PRESENT ILLNESS: Patient is a 79-yoF with PMH HFeEP (EF 20%) with AICD placement not dependent on oxygen, ESRD on HD Saturday, Saturday, Saturday, and started in December 2018, paroxysmal atrial fibrillation on Eliquis, rheumtoid arthritis, type 2 diabetes, dependent on insulin, CAD, hypothyroidism, presenting with shortness of breath. She is a direct transfer from [facility]. She was scheduled to have hemodialysis today, but was sent to urgent care due to increasing shortness of breath. She was found to have a cough yesteray, had a single episode of loose stools 2-3 days ago which, subjective fevers and chills, and no chest pain. She has received her flu shot this season. She lives together with her son, and does report her sons girlfriend has been coughing for a month and diagnosed with allergies. Last dialysis session was Saturday. She was last admitted for similar presentation on 05/25/2019. He had an echo during this time which revealed severely dilated LV with akinesis of the basal inferior and basal inferolateral segments with severe global hypokinesis, with an EF of 20%. ROS: 10 point review of systems are negative except per above. PMH: See above. PSH: AICD placement, right chest wall tunneled HD catheter Family history: Social history: Lives at home with son Allergies: Hydromorphone, oxycodone Medications: Reviewed PHYSICAL EXAMINATION: VITAL SIGNS: Please see below. GENERAL: female, resting comfortably, No distress HEENT: Normocephalic, atraumatic, moist mucous membranes, no frontal/maxillary sinus pressure NECK: Supple CARDIOVASCULAR EXAMINATION: S1, S2, +murmurs, dialysis port on the right chest appears clean, dry and intact RESPIRATORY EXAMINATION: no crackles, +wet cough ABDOMINAL EXAMINATION: Soft, nontender, nondistended, positive bowel sounds EXTREMITIES: trace edema SKIN: No rash NEUROLOGICAL EXAMINATION: Alert and oriented 3, no focal deficits PSYCHIATRIC EXAMINATION: Calm and cooperative, appropriate affect, has capacity Patient is a 79-yoF with PMH HFeEP (EF 15-20%) with AICD placement not dependent on oxygen, ESRD on HD Saturday, Saturday, Saturday, paroxysmal atrial fibrillation on Eliquis, retired, arthritis, type 2 diabetes, dependent on insulin, CAD, hypothyroidism, presenting with fluid overload. Inpatient telemetry. #. Fluid overload , likely secondary to combination HFrEP with AICD placement not dependent on oxygen, Patient is fluid overloaded, will have hemodialysis today. Nephrology consult. Physical therapy. will follow-up with labs. Empirically treat with Zosyn and doxycycline, follow-up on respiratory and C. difficile panel performed at [facility] on 07/03/2019. #ESRD on HD Saturday, Saturday, Saturday #paroxysmal atrial fibrillation on Eliquis, obtain TSH, consider cardiology consult on amiodarone eval for a fib vs thyroid dz risk benefit #HLD: cont home med #RA: hold home med #type 2 diabetes: reduce home med, ISS, DM diet #CAD #hypothyroidism: Obtain TSH, last TSH 34 on 12/22/2018, resume home med #mood disorder: cont home med DVT ppx: NOAC Code: DNR Vital Signs Vital Signs Date Time Temp Pulse Resp B/P (MAP) Pulse Ox O2 Delivery O2 Flow Rate FiO2 07/03/19 15:15 100.0 80 20 115/63 (80) 97 Nasal Cannula 2.0 Home Medications Scheduled Amiodarone HCl (Amiodarone HCl) 200 Mg Tab, 200 MG PO DAILY Apixaban (Eliquis) 2.5 Mg Tablet, 2.5 MG PO BID Atorvastatin Calcium (Atorvastatin Calcium) 20 Mg Tab, 20 MG PO QHS Carboxymethyl/Glycerin/Poly80 (Refresh Optive Advanced Drops) 1 Claudia Claudia, 1 DROP OU DAILY Cetirizine HCl (Cetirizine HCl) 10 Mg Tablet, 10 MG PO DAILY Gabapentin (Gabapentin) 100 Mg Cap, 100 MG PO DAILY Hydroxychloroquine Sulfate (Hydroxychloroquine Sulfate) 200 Mg Tab, 200 MG PO BID Insulin Aspart (Novolog Flexpen) 100 Unit/Ml Inj, 1 DOSE SC AC PER SLIDING SCALE Insulin Detemir (Levemir Flextouch) 100 Unit/Ml Inj, 20 UNIT SC BID Levothyroxine Sodium (Synthroid) 125 Mcg Tablet, 150 MCG PO DAILY Mirtazapine (Mirtazapine) 15 Mg Tab.rapdis, 15 MG PO QHS Vit B Comp No.3/Folic/C/Biotin (Althea-Jett Rx Tablet) 1 Each Tablet, 1 TAB PO DAILY Scheduled PRN Albuterol Sulf (Albuterol Sulfate) 2.5 Mg/3 Ml Vial.neb, 2.5 MG INH Q6H PRN for SHORTNESS OF BREATH Albuterol Sulfate (Ventolin Hfa) 18 Gm Hfa.aer.ad, 2 PUFF INH Q4H PRN for SHORTNESS OF BREATH Carbamide Peroxide (Debrox) 15 Ml Drops, 1 DROP OU BID PRN for EARWAX Allergies Coded Allergies: ENVIROMENTAL (Verified Allergy, Unknown, DUST, MILDEW, 06/26/19) TAPE (Unverified Allergy, Unknown, BLISTERS, 06/26/19) hydromorphone (Verified Adverse Reaction, Mild, ITCHING, 06/26/19) oxycodone (Verified Adverse Reaction, Mild, ITCHING, 06/26/19) A-FIB/CHADSVASC A-FIB History Current/History of A-Fib/PAF?: Yes Current PO Anticoag Therapy: Yes GA VILLA MD Jul 03, 2019 15:25
[2019-07-03 17:04] LABS: CALCIUM LEVEL 8.8 MG/DL (8.8-10.2); CREATININE FOR GFR 6.16 MG/DL (0.55-1.30); POTASSIUM SERUM 3.5 MEQ/L (3.5-5.1); TROPONIN I 0.1 NG/ML (< 0.10)
[2019-07-03] MEDS ORDERED: DEXTROSE 50% 50 ML SYRINGE IV PRN (17:30)
[2019-07-03] MEDS ORDERED: GLUCAGON FOR INJ 1 MG VIAL (J1610) SC PRN (17:30)
[2019-07-03] MEDS: HumaLOG INSULIN (NovoLOG) PER UNIT SC SCH (17:30)
[2019-07-03] MEDS ORDERED: GLUCOSE 4 GM CHEW TABLET PO PRN (17:30)
[2019-07-03 17:32] LABS: HEMATOCRIT 32.4 % (36.0-47.0); HEMOGLOBIN 10.2 g/dl (12.0-15.5); MEAN CORPUSCULAR HEMOGLOBIN 31.1 pg (27.0-33.0); MEAN CORPUSCULAR HGB CONC 31.5 g/dl (32.0-36.5); MEAN CORPUSCULAR VOLUME 98.8 fl (80.0-96.0); PLATELET COUNT, AUTOMATED 103 10^3/uL (150-450); RED BLOOD COUNT 3.28 10^6/uL (4.00-5.40); WHITE BLOOD COUNT 12.1 10^3/uL (4.0-10.0)
[2019-07-03] MEDS ORDERED: ELIQ5TAB PO (18:00)
[2019-07-03] MEDS ORDERED: NYST1POW9 TOP (18:00)
[2019-07-03] MEDS ORDERED: LEVO150T42 PO (18:00)
[2019-07-03] MEDS ORDERED: ACET-897 PO (18:00)
[2019-07-03] MEDS ORDERED: ALBUTEROL SULFATE 2.5 MG/0.5 ML INH NEB SOLN INH PRN (19:15)
[2019-07-03] MEDS ORDERED: NYSTATIN 100,000 UNITS/GM TOPICAL PWD 15 GM TOP PRN (19:15)
[2019-07-03] MEDS ORDERED: ALBUTEROL 90 MCG/ACT 8GM HFA INHALER INH PRN (19:15)
[2019-07-03] MEDS: APIXABAN 5 MG TAB (ELIQUIS) PO SCH (21:45)
[2019-07-03] MEDS: ATORVASTATIN 20 MG TAB PO SCH (21:45)
[2019-07-03] MEDS: PIPERACILLIN/TAZOBACTAM SOD 2.25 GM in D5W MINI-BAG PLUS 50 ML IV SCH (21:46)
[2019-07-03] MEDS: LEVEMIR (INSULIN DETEMIR) 1 UNITS/0.01ML SC SCH (21:46)
[2019-07-03 22:00] VITALS: BP 116/63
[2019-07-03] MEDS ORDERED: HEPARIN SOD (PORCINE) 5000 UNITS/ML VIAL SC SCH (22:00)
[2019-07-03] MEDS: DOXYCYCLINE HYCLATE 100 MG in D5W MINI-BAG PLUS 100 ML IV SCH (22:44)
[2019-07-03] MEDS ORDERED: ACETAMINOPHEN TAB 650MG DOSE (2X325MG) PO PRN (23:45)
[2019-07-04] MEDS: PIPERACILLIN/TAZOBACTAM SOD 2.25 GM in D5W MINI-BAG PLUS 50 ML IV SCH (03:58)
[2019-07-04] MEDS: LEVOTHYROXINE 150MCG TABLET (0.15MG) PO SCH (05:37)
[2019-07-04 06:00] VITALS: BP 108/62
[2019-07-04 07:22] LABS: ALBUMIN 2.6 GM/DL (3.2-5.2); BILIRUBIN,TOTAL 0.8 MG/DL (0.2-1.0); CREATININE FOR GFR 3.9 MG/DL (0.55-1.30); GLOMERULAR FILTRATION RATE 11.8 (>32); POTASSIUM SERUM 3.7 MEQ/L (3.5-5.1); TOTAL PROTEIN 6.2 GM/DL (6.4-8.2); TROPONIN I 0.09 NG/ML (< 0.10)
[2019-07-04] MEDS: IPRATROPIUM 0.5MG/ALBUTEROL 2.5MG INH SOL UD 3ML (DUONEB)(J7620) NEB SCH ×6 (08:00→23:31)
[2019-07-04] MEDS: CETIRIZINE (ZyrTEC) 10 MG TAB PO SCH (08:05)
[2019-07-04] MEDS: LEVEMIR (INSULIN DETEMIR) 1 UNITS/0.01ML SC SCH ×2 (08:05→21:12)
[2019-07-04] MEDS: GABAPENTIN 100 MG CAP PO SCH (08:05)
[2019-07-04] MEDS: AMIODARONE 200 MG TAB (PACERONE) PO SCH (08:05)
[2019-07-04] MEDS: APIXABAN 5 MG TAB (ELIQUIS) PO SCH ×2 (08:05→21:03)
[2019-07-04] MEDS: DOXYCYCLINE HYCLATE 100 MG in D5W MINI-BAG PLUS 100 ML IV SCH (08:06)
[2019-07-04] MEDS: HumaLOG INSULIN (NovoLOG) PER UNIT SC SCH ×3 (08:06→17:14)
--- NOTE | 2019-07-04 08:08 | IPNPDOC ---
Date Seen The patient was seen on 07/04/19. Progress Note SUBJECTIVE: Had dialysis on 07/03/2019, was seen by nephrology who started patient on steroids and nebulizers. Patient is positive for parainfluenza on her respiratory panel, and also positive for C. difficile and EP Escherichia coli. . She does complain about posterior neck pain that is worse at night, no altered mental status, afebrile. OBJECTIVE PHYSICAL EXAMINATION: VITAL SIGNS: Please see below. PHYSICAL EXAMINATION: VITAL SIGNS: Please see below. GENERAL: female, resting comfortably, No distress HEENT: Normocephalic, atraumatic, moist mucous membranes, no frontal/maxillary sinus pressure NECK: No lymphadenopathy, muscular tenderness on posterior nuchae CARDIOVASCULAR EXAMINATION: S1, S2, +murmurs, dialysis port on the right chest appears clean, dry and intact RESPIRATORY EXAMINATION: diminished, clear ABDOMINAL EXAMINATION: Soft, nontender, nondistended, positive bowel sounds EXTREMITIES: trace edema SKIN: No rash NEUROLOGICAL EXAMINATION: Alert and oriented 3, no focal deficits PSYCHIATRIC EXAMINATION: Calm and cooperative, appropriate affect, has capacity Assessment and plan: Patient is a 79-yoF with PMH HFeEP (EF 15-20%) with AICD placement not dependent on oxygen, ESRD on HD Saturday, Saturday, Saturday, paroxysmal atrial fibrillation on Eliis, retired, arthritis, type 2 diabetes, dependent on insulin, CAD, hypothyroidism, presenting with fluid overload. Inpatient telemetry. #C. diff: Straight with oral vancomycin 125 mg 4 times a day for 10 days, will monitor. Escherichia coli, patient denies frequent diarrhea, nonbloody stools. Obtain Hemoccult. #parainfluenza: Continue symptomatically treatment. PT for rehab vs home health eval. #. Fluid overload: Improved status post hemodialysis 07/03/19, hx of HFrEP with AICD placement not dependent on oxygen, Patient is fluid overloaded, will have hemodialysis today. Nephrology consult. Physical therapy. will follow-up with labs. Discussed with nephrology to empirically treat with Zosyn and doxycycline (start 07/03/19) due to immunocompromised state, follow-up on respiratory and C. difficile panel performed at [facility] on 07/03/2019. Will DC Abx today due to positive C. difficile and positive influenza virus. #ESRD on HD Saturday, Saturday, Saturday #paroxysmal atrial fibrillation on Eliquis, obtain TSH, consider cardiology consult on amiodarone eval for a fib vs thyroid dz risk benefit #HLD: cont home med #RA: hold home med #type 2 diabetes: reduce home med, ISS, DM diet #CAD #hypothyroidism: Obtain TSH, last TSH 34 on 12/22/2018, resume home med #mood disorder: cont home med DVT ppx: NOAC Code: DNR VS, I&O, 24H, Fishbone Vital Signs/I&O Vital Signs Date Time Temp Pulse Resp B/P (MAP) Pulse Ox O2 Delivery O2 Flow Rate FiO2 07/04/19 06:00 97.3 81 17 108/62 (77) 99 Nasal Cannula 2.0 I&O- Last 24 Hours up to 6 AM 07/04/19 06:00 Intake Total 0 ml Output Total 2500 ml Balance -2500 ml Laboratory Data 24H LABS Laboratory Tests 2 07/03/19 15:30: 07/03/19 16:34: Nucleated Red Blood Cells % (auto) 0.0, Anion Gap 8, Glomerular Filtration Rate 7.0L, Calcium Level 8.8, Magnesium Level 2.0, Troponin I 0.10 07/03/19 21:46: Troponin I 0.10 07/04/19 06:31: Anion Gap 6L, Glomerular Filtration Rate 11.8L, Calcium Level 9.0, Troponin I 0.09, Total Bilirubin 0.8, Aspartate Amino Transf (AST/SGOT) 17, Alanine Aminotransferase (ALT/SGPT) 19, Alkaline Phosphatase 69, Total Protein 6.2L, Albumin 2.6L, Albumin/Globulin Ratio 0.72L CBC/BMP Laboratory Tests 07/03/19 16:34 07/04/19 06:31 Microbiology Microbiology 07/04/19 Respiratory Virus Panel (PCR) (XAVIER) - Final, Complete Parainfluenza 1 (Piv1) GA VILLA MD Jul 04, 2019 08:08
[2019-07-04] MEDS: predniSONE 20 MG TAB PO SCH (10:29)
[2019-07-04 11:44] LABS: THYROID STIMULATING HORMONE 5.19 uIU/ML (0.358-3.740)
[2019-07-04] MEDS: VANCOMYCIN ORAL SOL 250MG/5ML ORAL SYRINGE PO SCH ×2 (12:25→17:14)
--- NOTE | 2019-07-04 12:30 | IPN ---
DATE: 07/04/2019 SUBJECTIVE: The patient is an 79-year-old female who presented to the hospital from [facility] after presenting there for weakness, cough and difficulty breathing. The patient has a history of heart failure with reduced ejection fraction with a 20% ejection fraction on latest echocardiogram performed in May 2019. The patient also has a history of end stage renal disease and was transferred to our facility for inpatient dialysis as [facility] does not have those services. The patient presented to the hospital after a 2-day history of productive cough with brown sputum and difficulty with moving around. The patient was scheduled to get dialysis yesterday on 07/03/2019 but was unable to make her outpatient appointment due to her weakness. The patient did receive dialysis yesterday and had 2500 mL of fluid removed. The patient is feeling about the same as she did yesterday with her breathing and coughing. The patient also had a respiratory panel in our hospital, which was positive for parainfluenza 1. PHYSICAL EXAMINATION: VITAL SIGNS: Temperature 97.3, pulse 81, respiratory rate 17, blood pressure 108/62, mean arterial pressure of 77, pulse oximetry 99% on 2 liters of oxygen via nasal cannula. GENERAL: The patient is an alert and oriented, female patient who is laying in the bed when we walked in. The patient did not appear to be in any acute distress. HEENT: Normocephalic, atraumatic. Anicteric sclerae. The patient did have moist mucous membranes. NECK: Supple with no evidence of jugular venous distention (JVD). HEART: Regular rate and rhythm. No murmurs. RESPIRATORY: Fine crackles in bilateral bases. The patient was not taking deep breaths during examination and was coughing, however, I did not auscultate any inspiratory rhonchi or wheezes in other lung babcock. ABDOMEN: Soft, nontender. EXTREMITIES: There was no edema bilaterally. LABORATORY DATA: Sodium 137, potassium 3.7, chloride 101, carbon dioxide 30, BUN 22, creatinine 3.90, glucose 121, calcium 90, albumin 2.6. ASSESSMENT AND PLAN: 1. Viral upper respiratory infection. The patient will be started on every 4 hour nebulizer treatments with DuoNeb for the next few days. The patient has also been started on prednisone 40 mg for 5 days. The patient is currently on Zosyn and doxycycline intravenously. THe patient was positive for parainfluenza virus, which is most likely the reason for the patient's shortness of breath. Abx can be stopped now. 2. End stage renal disease. The patient was dialyzed yesterday, 2.5 liters was removed. The patient is doing well and we will continue to follow along on her normal schedule. The patient will be dialyzed tomorrow. 3. Heart failure with reduced ejection fraction. The patient is doing well and we will continue to monitor volume status and address volume status with dialysis. The patient is not a candidate for EUGENE or ARB therapy secondary to hypotension. DISPOSITION: The patient will be continued to be monitored. As long as the patient is in the hospital, dialysis will be performed on her regular schedule. The patient can be discharged once deemed ready by primary hospitalist team. YRN
--- NOTE | 2019-07-04 12:57 | CR ---
DATE OF NEPHROLOGY CONSULTATION: 07/03/2019 REASON FOR CONSULTATION: Shortness of breath in this lady with end-stage renal disease. HISTORY OF PRESENT ILLNESS Mrs. Joel is an 79-year-old female with multiple chronic medical problems including longstanding type 2 diabetes, systolic congestive heart failure, rheumatoid arthritis, atrial fibrillation and end-stage renal disease. She has been on maintenance hemodialysis three times a week on Saturday, Saturday and Saturday schedule. She did receive her last dialysis on Saturday. She reports that she was short of breath for a couple of days. However it got worse today due to which she presented to emergency room at [facility]. She was evaluated there and felt to be in congestive heart failure due to which [facility] was called and the patient is transferred due to need for urgent dialysis. A nephrology consultation was requested and the patient is seen on her arrival. PAST MEDICAL AND SURGICAL HISTORY Significant for 1. Longstanding type 2 diabetes. 2. Hypertension. 3. Coronary artery disease. 4. Systolic congestive heart failure, status post automatic implantable cardioverter-defibrillator (AICD) placement. 5. History of paroxysmal atrial fibrillation on chronic anticoagulation with Eliquis. 6. History of hypothyroidism. 7. History of rheumatoid arthritis. 8. Anemia of chronic kidney disease. MEDICATIONS Her home medications include amiodarone 200 mg daily, Eliquis 2.5 mg twice a day, atorvastatin 20 mg daily, cetirizine 10 mg daily, gabapentin 100 mg daily, hydroxychloroquine 200 mg twice a day, Levemir insulin 20 units twice a day and NovoLog insulin per sliding scale, levothyroxine 125 micrograms daily, mirtazapine 15 mg daily, multivitamin once a day. She also takes albuterol nebulizers as needed. ALLERGIES She has allergies to HYDROMORPHONE, OXYCODONE, TAPE and ENVIRONMENTAL ALLERGIES. PERSONAL AND SOCIAL HISTORY The patient lives at home with her son. She does not smoke or drink. FAMILY HISTORY Significant for diabetes and end-stage renal disease. REVIEW OF SYSTEMS She denies any fever or chills. No headache or unusual dizziness. Ears, nose and throat are unremarkable. Cardiovascular system is significant for congestive heart failure with systolic ejection fraction of only about 20%. Respiratory system is significant for cough and shortness of breath. She denies any hemoptysis or pleuritic type of chest pain. GI system is negative for nausea, vomiting or diarrhea. Her oral intake and appetite has been poor. system is negative for dysuria or hematuria. Musculoskeletal system is significant for rheumatoid arthritis and history of kyphoscoliosis. Endocrine system is significant for hypothyroidism, secondary hyperparathyroidism and type 2 diabetes. Hematological system is significant for anemia and chronic anticoagulation due to atrial fibrillation. Neurological system is significant for peripheral neuropathy. PHYSICAL EXAMINATION Temperature 100 degrees Fahrenheit, heart rate 80 per minute and respiratory rate 20 per minute. Blood pressure 115/63 mmHg and oxygen saturation 97% on 2 liters oxygen. Head is atraumatic. Neck is supple and jugular venous distention (JVD) difficult to be assessed. She has a Perma-Cath present on right upper chest without any signs of infection. There is no oral thrush or ulcers. Heart: Sounds are irregular in rhythm. There is no pericardial friction rub. Lungs: Have bilateral rhonchi and mild expiratory wheezing. Abdomen: Soft and nontender and bowel sounds are normal. Extremities: Without any cyanosis or clubbing. Neurologically she is awake, at her baseline mentation without a focal deficit. LABORATORY DATA WBC count 12.1, hemoglobin 10.2 and hematocrit 32.4. Platelets 103. Sodium 140, potassium 3.5, CO2 30, BUN 46 and creatinine 6.16. Glucose 186 and calcium 8.8. Chest x-ray done in other hospital is reviewed independently. She has cardiomegaly and some chronic changes and scarring. There is minimal cephalization. PROBLEMS: 1. Shortness of breath, most likely this is multifactorial. She probably has upper respiratory infection along with mild volume overload. We have already arranged for urgent dialysis for her and will try to remove as much fluid as she can tolerate. Her oxygen saturation has already improved with oxygen supplementation. She should be treated with bronchodilator nebulizers and broad-spectrum antibiotics due to immunocompromised status related to diabetes and end-stage renal disease. 2. End-stage renal disease. The patient is regularly dialyzed on Saturday, Saturday and Saturday schedule. She is due for dialysis today and will be dialyzed as soon as possible now. 3. Acute on chronic systolic congestive heart failure. She is known to have severe systolic dysfunction with ejection fraction of 20%. She is somewhat volume overloaded and decompensated. We will remove about 1.5 liters of fluid as tolerated. She will be reevaluated again for her further need for dialysis tomorrow. 4. Anemia. Her anemia is mild and stable and does not need any urgent intervention. Thank you for involving me in the care of Mrs. Joel. We will follow her along with you.
[2019-07-04 14:00] VITALS: BP 106/56
[2019-07-04] MEDS: ATORVASTATIN 20 MG TAB PO SCH (21:03)
[2019-07-04 22:00] VITALS: BP 110/69
[2019-07-05] MEDS: VANCOMYCIN ORAL SOL 250MG/5ML ORAL SYRINGE PO SCH ×5 (00:08→23:55)
[2019-07-05] MEDS: IPRATROPIUM 0.5MG/ALBUTEROL 2.5MG INH SOL UD 3ML (DUONEB)(J7620) NEB SCH ×6 (03:18→23:36)
[2019-07-05] MEDS: LEVOTHYROXINE 150MCG TABLET (0.15MG) PO SCH (05:47)
[2019-07-05 06:00] VITALS: BP 112/65
[2019-07-05 06:15] LABS: HEMATOCRIT 34.9 % (36.0-47.0); MEAN CORPUSCULAR HEMOGLOBIN 31.7 pg (27.0-33.0); MEAN CORPUSCULAR HGB CONC 31.5 g/dl (32.0-36.5); MEAN CORPUSCULAR VOLUME 100.6 fl (80.0-96.0); RED BLOOD COUNT 3.47 10^6/uL (4.00-5.40)
[2019-07-05 06:38] LABS: CALCIUM LEVEL 9.4 MG/DL (8.8-10.2); CREATININE FOR GFR 6.05 MG/DL (0.55-1.30); GLOMERULAR FILTRATION RATE 7.1 (>32); POTASSIUM SERUM 3.8 MEQ/L (3.5-5.1)
[2019-07-05 07:09] LABS: PLATELET COUNT, AUTOMATED 93 10^3/uL (150-450)
[2019-07-05] MEDS: GABAPENTIN 100 MG CAP PO SCH (08:09)
[2019-07-05] MEDS: APIXABAN 5 MG TAB (ELIQUIS) PO SCH ×2 (08:09→21:15)
[2019-07-05] MEDS: CETIRIZINE (ZyrTEC) 10 MG TAB PO SCH (08:09)
[2019-07-05] MEDS: predniSONE 20 MG TAB PO SCH (08:10)
[2019-07-05] MEDS: HumaLOG INSULIN (NovoLOG) PER UNIT SC SCH ×3 (08:11→17:25)
[2019-07-05] MEDS: LEVEMIR (INSULIN DETEMIR) 1 UNITS/0.01ML SC SCH (08:30)
--- NOTE | 2019-07-05 08:31 | IPNPDOC ---
Date Seen The patient was seen on 07/05/19. Progress Note SUBJECTIVE: HD on 07/03/2019 and 07/05. Patient is positive for parainfluenza on her respiratory panel, and also positive for C. difficile and EP Escherichia coli with neg Hemoccult. She does complain about posterior neck pain with improved with heating pad, AF, no AMS. Sx improved. OBJECTIVE PHYSICAL EXAMINATION: VITAL SIGNS: Please see below. PHYSICAL EXAMINATION: VITAL SIGNS: Please see below. GENERAL: female, resting comfortably, No distress HEENT: Normocephalic, atraumatic, moist mucous membranes, no frontal/maxillary sinus pressure NECK: No lymphadenopathy, muscular tenderness on posterior nuchae CARDIOVASCULAR EXAMINATION: S1, S2, +murmurs, dialysis port on the right chest appears clean, dry and intact RESPIRATORY EXAMINATION: diminished, clear ABDOMINAL EXAMINATION: Soft, nontender, nondistended, positive bowel sounds EXTREMITIES: trace edema SKIN: No rash NEUROLOGICAL EXAMINATION: Alert and oriented 3, no focal deficits PSYCHIATRIC EXAMINATION: Calm and cooperative, appropriate affect, has capacity Assessment and plan: Patient is a 79-yoF with PMH HFeEP (EF 15-20%) with AICD placement not dependent on oxygen, ESRD on HD Saturday, Saturday, Saturday, paroxysmal atrial fibrillation on Eliquis, retired, arthritis, type 2 diabetes, dependent on insulin, CAD, hypothyroidism, presenting with fluid overload. Inpatient telemetry. #C. diff: pt was hospitalized 1 month ago, txoral vancomycin 125 mg 4 times a day for 10 days. #parainfluenza: Continue symptomatically treatment. PT for rehab vs home health eval. #. Fluid overload: Improved status post hemodialysis 07/03/19 and 07/05, hx of HFrEP with AICD placement not dependent on oxygen, initially discussed with nephrology to empirically treat with Zosyn and doxycycline (start 07/03/19) due to immunocompromised state, follow-up on respiratory and C. difficile panel pe rformed at [facility] [place] [place] on 07/03/2019. #ESRD on HD Saturday, Saturday, Saturday, nephrology consult #paroxysmal atrial fibrillation on Eliquis, TSH stable, consider cardiology consult on amiodarone eval for a fib vs thyroid dz risk benefit #HLD: cont home med #RA: hold home med #type 2 diabetes: reduce home med, ISS, DM diet #CAD #hypothyroidism: Obtain TSH, last TSH 34 on 12/22/2018, resume home med #mood disorder: cont home med DVT ppx: NOAC Code: DNR Dispo: rehab vs home vs home health 07/06 VS, I&O, 24H, Fishbone Vital Signs/I&O Vital Signs Date Time Temp Pulse Resp B/P (MAP) Pulse Ox O2 Delivery O2 Flow Rate FiO2 07/05/19 06:00 98.5 79 17 112/65 (81) 92 Nasal Cannula 3.0 I&O- Last 24 Hours up to 6 AM 07/05/19 06:00 Intake Total 240 ml Output Total 0 ml Balance 240 ml Laboratory Data 24H LABS Laboratory Tests 2 07/04/19 11:29: Bedside Glucose (Misc Panel) 159H 07/04/19 16:40: Bedside Glucose (Misc Panel) 236H 07/04/19 20:51: Bedside Glucose (Misc Panel) 370H 07/05/19 05:57: Nucleated Red Blood Cells % (auto) 0.0, Immature Platelet Fraction 8.8, Anion G ap 10, Glomerular Filtration Rate 7.1L, Calcium Level 9.4 CBC/BMP Laboratory Tests 07/05/19 05:57 Microbiology Microbiology 07/04/19 Gastrointestinal Tract Panel (PCR) - Final, Complete Clostridium Difficile A/B Enteropathogenic E.coli 07/04/19 Stool Occult Blood (XAVIER) - Final, Complete 07/04/19 Respiratory Virus Panel (PCR) (XAVIER) - Final, Complete Parainfluenza 1 (Piv1) GA VILLA MD Jul 05, 2019 08:31
[2019-07-05] MEDS ORDERED: LIDOCAINE 1% SDV 5 ML VIAL SQ ONE (12:00)
[2019-07-05] MEDS ORDERED: HEPARIN 1,000 UNITS/ML 10ML VIAL (FOR RADIOLOGY& DIALYSIS ONLY) IV ONE (12:00)
[2019-07-05] MEDS ORDERED: HEPARIN 1,000 UNITS/ML 10ML VIAL (FOR RADIOLOGY& DIALYSIS ONLY) XX ONE (12:00)
[2019-07-05] MEDS: AMIODARONE 200 MG TAB (PACERONE) PO SCH (13:12)
--- NOTE | 2019-07-05 20:08 | IPN ---
DATE: 07/05/2019 SUBJECTIVE: The patient was seen and examined at the bedside today morning during hemodialysis procedure. She is tolerating the hemodialysis procedure well. I was told by the primary team the patient's Clostridium difficile came back positive. Her antibiotics were stopped yesterday and she has been started on oral vancomycin. She continues to get nebulizations and prednisone. She reports shortness of breath is getting better. OBJECTIVE: Vital signs: Temperature is 98.5 degrees Fahrenheit, blood pressure 112/65, pulse is 79, respiratory of 73, saturating 92% on nasal cannula at 3 liters. Intake and output: There is no urine output recorded. The patient had one bowel movement overnight. Weight in the bed scale is 75.4 kg. PHYSICAL EXAMINATION: General: The patient is awake, alert, oriented x3, laying in bed getting hemodialysis done, in no apparent distress. Head and neck exam: Extraocular muscles intact. Pupils equally round and reactive to light. Mucous membranes are moist. Neck is supple. There is no JVD. Cardiovascular: S1, S2 regular rate. No edema of the bilateral lower extremities. Respiratory: Mild expiratory rhonchi at the bases. Abdomen: Soft, positive bowel sounds. Nontender. Musculoskeletal: No clubbing or cyanosis. Pulses are 2+. POLLUTION CONTROL TECHNICIAN: No focal deficit. Power is 5/5 in all extremities. LABORATORY REVIEW: Complete blood count (CBC) showed WBC of 7, hemoglobin is 11, platelets are 93. Basic metabolic panel (BMP) showed sodium 134, potassium 3.8, chloride 97, bicarb 27, BUN 44, creatinine is 16, calcium 9.4. Microbiology stool came back positive for Clostridium difficile and in enteropathogenic E-coli. CURRENT INPATIENT MEDICATIONS: The patient's medications were all reviewed by me. She continues to be on prednisone 40 mg daily for a total of 5 days. She was started on vancomycin 125 mg every six hours. IV antibiotics have been stopped. ASSESSMENT/PLAN: 1. End-stage renal disease on hemodialysis. The patient's regular dialysis days are Saturday, Saturday, Saturday. She is being dialyzed today as per regular schedule because of holidays. Saturday the patient's is being dialyzed on Saturday. Ultrafiltration goal will be around 1 liter. 2. Upper respiratory tract viral infection. Continue nebulizations and steroids. Antibiotics have been stopped. 3. Clostridium difficile colitis. The patient is on oral vancomycin. Frequency of diarrhea is improving. 4. Acute on chronic decompensated heart failure with reduced ejection fraction. Volume status is being optimized with dialysis. Continue current dose of amiodarone. Because of soft blood pressures. the patient is not on EUGENE inhibitors; and because of history of respiratory problems, he is not getting beta-blockers.
[2019-07-05] MEDS ORDERED: LEVEMIR (INSULIN DETEMIR) 1 UNITS/0.01ML SC SCH (21:00)
[2019-07-05] MEDS: ATORVASTATIN 20 MG TAB PO SCH (21:15)
[2019-07-05 22:00] VITALS: BP 114/60
[2019-07-06] MEDS: IPRATROPIUM 0.5MG/ALBUTEROL 2.5MG INH SOL UD 3ML (DUONEB)(J7620) NEB SCH (01:59)
[2019-07-06] MEDS: LEVOTHYROXINE 150MCG TABLET (0.15MG) PO SCH (06:16)
[2019-07-06] MEDS: VANCOMYCIN ORAL SOL 250MG/5ML ORAL SYRINGE PO SCH ×3 (06:16→17:42)
[2019-07-06 08:07] LABS: CALCIUM LEVEL 9.6 MG/DL (8.8-10.2); CREATININE FOR GFR 4.24 MG/DL (0.55-1.30); GLOMERULAR FILTRATION RATE 10.7 (>32); POTASSIUM SERUM 4.2 MEQ/L (3.5-5.1)
[2019-07-06 08:30] LABS: HEMATOCRIT 34.8 % (36.0-47.0); HEMOGLOBIN 10.9 g/dl (12.0-15.5); MEAN CORPUSCULAR HEMOGLOBIN 31.4 pg (27.0-33.0); MEAN CORPUSCULAR HGB CONC 31.3 g/dl (32.0-36.5); MEAN CORPUSCULAR VOLUME 100.3 fl (80.0-96.0); PLATELET COUNT, AUTOMATED 106 10^3/uL (150-450); RED BLOOD COUNT 3.47 10^6/uL (4.00-5.40); WHITE BLOOD COUNT 7.6 10^3/uL (4.0-10.0)
[2019-07-06] MEDS: predniSONE 20 MG TAB PO SCH (08:31)
[2019-07-06] MEDS: AMIODARONE 200 MG TAB (PACERONE) PO SCH (08:31)
[2019-07-06] MEDS: APIXABAN 5 MG TAB (ELIQUIS) PO SCH (08:31)
[2019-07-06] MEDS: CETIRIZINE (ZyrTEC) 10 MG TAB PO SCH (08:31)
[2019-07-06] MEDS: GABAPENTIN 100 MG CAP PO SCH (08:31)
[2019-07-06] MEDS: HumaLOG INSULIN (NovoLOG) PER UNIT SC SCH ×3 (08:32→17:42)
[2019-07-06] MEDS ORDERED: LEVEMIR (INSULIN DETEMIR) 1 UNITS/0.01ML SC SCH (09:00)
--- NOTE | 2019-07-06 11:54 | DS.PDOC ---
Discharge Summary General Date of Admission Jul 03, 2019 at 15:13 Date of Discharge 07/06/19 Discharge Summary PROCEDURES PERFORMED DURING STAY: HD. ADMITTING DIAGNOSES: 1. Fluid overload. DISCHARGE DIAGNOSES: 1., Parainfluenza virus and C. difficile. COMPLICATIONS/CHIEF COMPLAINT: Fluid Overload. HISTORY OF PRESENT ILLNESS & HOSPITAL COURSE: Patient is a 79-yoF with PMH HFeEP (EF 20%) with AICD placement not dependent on oxygen, ESRD on HD Saturday, Saturday, Saturday, and started in December 2018, paroxysmal atrial fibrillation on Eliquis, rheumtoid arthritis, type 2 diabetes, dependent on insulin, CAD, hypothyroidism, presenting with shortness of breath. She is a direct transfer from [facility]. Sx improved status post hemodialysis 07/03/19 and 07/05, hx of HFrEP with AICD placement not dependent on oxygen, initially discussed with nephrology to empirically treat with Zosyn and doxycycline (start 07/03/19) due to immunocompromised state. We did perform a C. difficile and respiratory panel here at [facility] which was positive for C. difficile and parainfluenza, and started on treatment, patient's symptoms improved. Physical therapy evaluate patient, clear to go home. On discharge, patient will have a total of 10 day course of Vanco, by mouth, started on 5 day steroid burst, and five-day Tamiflu due to increased risk for complications including age and chronic renal condition. She is to follow up with her primary care and nephrology in 1-2 weeks. No other changes in home medications. Questions were answered. DISCHARGE MEDICATIONS: Please see below. ALLERGIES: Please see below. PHYSICAL EXAMINATION ON DISCHARGE: VITAL SIGNS: Please see below. GENERAL: female, resting comfortably, No distress HEENT: Normocephalic, atraumatic, moist mucous membranes, no frontal/maxillary sinus pressure NECK: No lymphadenopathy, muscular tenderness on posterior nuchae CARDIOVASCULAR EXAMINATION: S1, S2, +murmurs, dialysis port on the right chest appears clean, dry and intact RESPIRATORY EXAMINATION: clear ABDOMINAL EXAMINATION: Soft, nontender, nondistended, positive bowel sounds EXTREMITIES: trace edema SKIN: No rash NEUROLOGICAL EXAMINATION: Alert and oriented 3, no focal deficits PSYCHIATRIC EXAMINATION: Calm and cooperative, appropriate affect, has capacity LABORATORY DATA: Please see below. IMAGING: See H&P PROGNOSIS:. Good ACTIVITY: As tolerated. DIET: Diabetic heart healthy DISCHARGE PLAN: Home DISPOSITION: Home. DISCHARGE INSTRUCTIONS: 1.. See above. ITEMS TO FOLLOWUP ON ON OUTPATIENT: 1.. See above. DISCHARGE CONDITION: Stable. TIME SPENT ON DISCHARGE: 35 minutes. Vital Signs/I&Os Vital Signs Date Time Temp Pulse Resp B/P (MAP) Pulse Ox O2 Delivery O2 Flow Rate FiO2 07/06/19 06:00 98.5 81 17 92 07/05/19 22:00 114/60 (78) 07/05/19 06:00 Nasal Cannula 3.0 I&O- Last 24 Hours up to 6 AM 07/06/19 05:59 Intake Total 660 ml Output Total 1500 ml Balance -840 ml Laboratory Data Labs 24H Laboratory Tests 2 07/05/19 13:09: Bedside Glucose (Misc Panel) 137H 07/05/19 17:07: Bedside Glucose (Misc Panel) 348H 07/05/19 21:10: Bedside Glucose (Misc Panel) 449H 07/06/19 05:48: Nucleated Red Blood Cells % (auto) 0.0, Anion Gap 11, Glomerular Filtration Rate 10.7L, Calcium Level 9.6 07/06/19 06:01: Bedside Glucose (Misc Panel) 386H 07/06/19 11:42: Bedside Glucose (Misc Panel) 214H CBC/BMP Laboratory Tests 07/06/19 05:48 FSBS Laboratory Tests Test 07/05/19 13:09 07/05/19 17:07 07/05/19 21:10 07/06/19 06:01 Range/Units Bedside Glucose (Misc Panel) 137 348 449 386 83-110 MG/DL Test 07/06/19 11:42 Range/Units Bedside Glucose (Misc Panel) 214 83-110 MG/DL Microbiology Microbiology 07/04/19 Gastrointestinal Tract Panel (PCR) - Final, Complete Clostridium Difficile A/B Enteropathogenic E.coli 07/04/19 Stool Occult Blood (XAVIER) - Final, Complete 07/04/19 Respiratory Virus Panel (PCR) (XAVIER) - Final, Complete Parainfluenza 1 (Piv1) Discharge Medications Scheduled Amiodarone HCl (Amiodarone HCl) 200 Mg Tab, 200 MG PO DAILY, (Reported) Apixaban (Eliquis) 5 Mg Tablet, 5 MG PO BID, (Reported) Atorvastatin Calcium (Atorvastatin Calcium) 20 Mg Tab, 20 MG PO QHS, (Reported) Cetirizine HCl (Cetirizine HCl) 10 Mg Tablet, 10 MG PO DAILY, (Reported) Gabapentin (Gabapentin) 100 Mg Cap, 100 MG PO DAILY, (Reported) Hydroxychloroquine Sulfate (Hydroxychloroquine Sulfate) 200 Mg Tab, 200 MG PO BID, (Reported) Insulin Aspart (Novolog Flexpen) 100 Unit/Ml Inj, 1 DOSE SC AC, (Reported) PER SLIDING SCALE Insulin Detemir (Levemir Flextouch) 100 Unit/Ml Inj, 20 UNIT SC BID, (Reported) Levothyroxine Sodium (Levoxyl) 150 Mcg Tablet, 150 MCG PO DAILY, (Reported) Mirtazapine (Mirtazapine) 15 Mg Tab.rapdis, 15 MG PO QHS, (Reported) Oseltamivir Phosphate (Tamiflu) 30 Mg Capsule, 30 MG PO DAILY The milligrams today, then 30 mg after every hemodialysis sessions for 5 days. Prednisone (Prednisone) 20 Mg Tablet, 40 MG PO DAILY Vancomycin Hcl (Vancomycin HCl) 125 Mg Capsule, 1 CAP PO QID Vit B Comp No.3/Folic/C/Biotin (Althea-Jett Rx Tablet) 1 Each Tablet, 1 TAB PO DAILY, (Reported) Scheduled PRN Acetaminophen (Tylenol Extra Strength) 500 Mg Tablet, 1,000 MG PO TID PRN for PAIN, (Reported) Albuterol Sulf (Albuterol Sulfate) 2.5 Mg/3 Ml Vial.neb, 2.5 MG INH Q6H PRN for SHORTNESS OF BREATH, (Reported) Albuterol Sulfate (Ventolin Hfa) 18 Gm Hfa.aer.ad, 2 PUFF INH Q4H PRN for SHORTNESS OF BREATH, (Reported) Carbamide Peroxide (Debrox) 15 Ml Drops, 1 DROP OU BID PRN for EARWAX, (Reported) Carboxymethyl/Glycerin/Poly80 (Refresh Optive Advanced Drops) 1 Claudia Claudia, 1 DROP OU QID PRN for DRY EYES, (Reported) Nystatin (Nystatin Powder) 15 Gm Powder, 1 DOSE TOP BID PRN for REDNESS/IRRITATION, (Reported) APPLY TO BREASTS AND ABDOMINAL FOLDS Allergies Coded Allergies: ENVIROMENTAL (Verified Allergy, Unknown, DUST, MILDEW, 06/26/19) TAPE (Unverified Allergy, Unknown, BLISTERS, 06/26/19) hydromorphone (Verified Adverse Reaction, Mild, ITCHING, 06/26/19) oxycodone (Verified Adverse Reaction, Mild, ITCHING, 06/26/19) GA VILLA MD Jul 06, 2019 11:54
[2019-07-06] MEDS ORDERED: VANC125C3 PO (11:57)
[2019-07-06] MEDS ORDERED: PRED20TA PO (12:01)
[2019-07-06] MEDS ORDERED: TAMI30CA PO (12:08)
[2019-07-06 14:00] VITALS: BP 108/63
--- NOTE | 2019-07-06 20:53 | IPN ---
DATE: 07/06/2019 SUBJECTIVE: The patient was seen and examined at the bedside today morning. She is afebrile, hemodynamically stable. She reports her shortness of breath and cough is getting better. She persistently is hyperglycemic. She is only getting half the dose of Levemir. She was dialyzed yesterday. Ultrafiltration was 1.5 liters. OBJECTIVE: Vital signs: Temperature is 98.6 degrees Fahrenheit, blood pressure 114/60, pulse is 80, respiratory rate of 17, saturating 92% on nasal cannula. Intake and output: Ultrafiltration with hemodialysis was 1.5 liters. Weight in the bed scale was 75.4 kg yesterday. PHYSICAL EXAMINATION: General: The patient is awake, alert, oriented times three, laying in bed in no apparent distress. Head and neck exam: Extraocular muscles intact. Pupils equally round and reactive to light. Mucous membranes are moist. Neck is supple. There is no JVD. Cardiovascular: S1, S2, regular rate. No edema of the bilateral lower extremities. Respiratory: Chest is clear to auscultation bilaterally. Bilateral equal air entry. No rales or rhonchi. Abdomen: Soft, positive bowel sounds. Nontender. Musculoskeletal: No clubbing or cyanosis. Pulses are 2+. SKEIN BLEACHER: No focal deficit, power is 5/5 in all extremities. LABORATORY REVIEW: CBC showed a WBC of 7.6, hemoglobin 10.9, platelets of 106. BMP showed sodium 136, potassium 4.2, chloride 99, bicarbonate 26, BUN 31, creatinine is 4.2, glucose level is 475. CURRENT INPATIENT MEDICATIONS: The patient's medications were all reviewed by me. She continues to be on nebulizations. I have increased the insulin Levemir dose to 20 units subcutaneous twice a day, the first dose will be given in the morning. She is on prednisone 40 mg by mouth daily. Last dose will be on 07/09/2019. ASSESSMENT/PLAN: 1. End-stage renal disease on hemodialysis. The patient was dialyzed yesterday. Her regular dialysis days are Saturday, Saturday, Saturday. She is off schedule because of the holiday season. Next hemodialysis will be tomorrow. 2. Upper respiratory tract viral infection. The patient's breathing is significantly better. She can take a total of 5 days of oral prednisone. 3. Clostridium (C) difficile colitis. He is on oral vancomycin. Diarrhea is improved. 4. Acute on chronic decompensated congestive heart failure with reduced ejection fraction. Volume status is better. Further optimization of fluid status will be done with dialysis as outpatient. 5. Diabetes mellitus type 2, insulin dependent. Glucose level was very high. Her home dose of Levemir is 20 units is subcutaneous twice a day. I have put her back on the home dose. Some of the hyperglycemia is because of the prednisone use. DISPOSITION: The patient is optimized and stable from nephrology standpoint to be discharged home. She will be followed up at dialysis center as outpatient.
== END 2019-07-06 18:00 | disposition home health service (06) | DRG 152 ==
LOC: M MSPAV 15:13
PROVIDERS: ADMIT Family Medicine; ATTEND Family Medicine
PROC: 5A1D70Z Performance of Urinary Filtration, Intermittent, Less than 6 Hours Per Day (ICD-10-PCS; principal; 2019-07-03)
DX: J06.9 Acute upper respiratory infection, unspecified (principal); N18.6 End stage renal disease; I50.23 Acute on chronic systolic (congestive) heart failure; A04.72 Enterocolitis due to Clostridium difficile, not specified as recurrent; I13.2 Hypertensive heart and chronic kidney disease with heart failure and with stage 5 chronic kidney disease, or end stage renal disease; I48.0 Paroxysmal atrial fibrillation; M06.9 Rheumatoid arthritis, unspecified; E11.22 Type 2 diabetes mellitus with diabetic chronic kidney disease; I25.10 Atherosclerotic heart disease of native coronary artery without angina pectoris; F39 Unspecified mood [affective] disorder; Z66 Do not resuscitate; E03.9 Hypothyroidism, unspecified; D63.1 Anemia in chronic kidney disease; J30.89 Other allergic rhinitis; Z79.4 Long term (current) use of insulin; Z99.2 Dependence on renal dialysis; Z95.810 Presence of automatic (implantable) cardiac defibrillator; Z88.5 Allergy status to narcotic agent; Z79.01 Long term (current) use of anticoagulants; Z79.899 Other long term (current) drug therapy; Z91.048 Other nonmedicinal substance allergy status

== ENCOUNTER → 2019-07-14 | Outpatient (REF) | payer MEDICARE ==
[~2019-07-14] MED LIST changes: +ACET-897 PO; +LEVO150T42 PO; +NYST1POW9 TOP; +PRED20TA PO; +TAMI30CA PO
[2019-07-14 18:53] LABS: FREE T4 1.35 NG/DL (0.76-1.46); THYROID STIMULATING HORMONE 13.7 uIU/ML (0.358-3.740)
== END ==
LOC: M LAB REF 17:45
PROVIDERS: ATTEND Internal Medicine Endocrinology, Diabetes & Metabolism
DX: E89.0 Postprocedural hypothyroidism (principal)

== ENCOUNTER 2019-07-20 15:32 | Inpatient (IN) | payer MEDICARE ==
[~2019-07-20] VITALS: Ht 154.9 cm; Wt 68.6 kg
[2019-07-20 18:10] VITALS: BP 120/68
--- NOTE | 2019-07-20 19:26 | HPEPDOC ---
[facility] Medical History & Physical Date of Admission Jul 20, 2019 Date of Service: Jul 20, 2019 Attending Physician: MARTINA NANCE MD History and Physical TIME OF SERVICE: 8:18 PM CHIEF COMPLAINT: Back pain HISTORY OF PRESENT ILLNESS: This is an 80-year-old female that presented to the hospital with complaints of 3 day in duration lower back pain. Because of the pain. She had difficulty walking. She had a fall about 2 weeks ago. Her other complaints include cough that was initially dry but is not productive for 1 month. At [facility] she was found to have a troponin of 0.9; they requested transfer in case the troponin increased and because they did not have dialysis services. REVIEW OF SYSTEMS: 12 point review of systems negative except as listed in HPI PAST MEDICAL/ SURGICAL HISTORY: ESRD (MWF via right IJ tunneled HD catheter) Systolic/diastolic CHF ( EF 15-20% status post dual-chamber pacemaker) Chronic CAD Hypothyroidism status post thyroidectomy Paroxysmal atrial fibrillation/sick sinus syndrome (Elquis/dual-chamber pacemaker) Rheumatoid arthritis. Type 2 diabetes. Diverticulitis with history of colovesicular fistula Status post cholecystectomy Status post hysterectomy. Status post left knee surgery. Status post right hip repair. Status post ORIF of right ankle SOCIAL HISTORY: Lives with son. . Does not smoke FAMILY HISTORY: Diabetes ESRD ALLERGIES: Please see below. HOME MEDICATIONS: Please see below. PHYSICAL EXAMINATION: VITAL SIGNS: Please see below. GEN: well nourished / well developed/ INTEGUMENT: not flushed/ not jaundice / air is a permacath at the right upper chest / she has a malodorous ulcer on her right toe that is draining purulent fluid HEENT: normocephalic / atramatic / mucus membranes dry/ sclera anicteric CVS: RRR/NMRG/ JVP is elevated LUNGS: She has a dry cough/nasal cannula is in place/ she is able to speak full sentences without stopping to take a breath /she has expiratory crackles up to the apices bilaterally ABDOMEN: Abdomen is obese/ bowel sounds are present / the abdomen is soft & not tender with palpation MSK/EXTREMITIES: range of motion intact in all 4 extremities / no scoliosis / no kyphosis NEURO: CN 2-12 are grossly intact / speech is not dysarthric PSYCH: alert and oriented / able to understand and follow all commands LABORATORY DATA: See below for updated labs. From [facility] WBC 9.9, hemoglobin 11.3, platelets 130 Sodium 141, potassium 4.4, chloride 99, carbonate 36, BUN 49, creatinine 7.1, glucose 139 BNP 20,402, troponin 0.094 EKG : From [facility] AV dual paced rhythm with a heart rate of 80 IMAGING: From [facility] CT of the chest showed coronary. Calcification, atelectasis, cardiomegaly, and pulmonary hypertension. There was no pulmonary edema ASSESSMENT: Ms. Joel is an 79-year-old female with a past medical history of chronic CAD, hypothyroidism, ESRD, systolic and diastolic congestive heart failure, paroxysmal atrial fibrillation, diabetes and rheumatoid arthritis who will be admitted for management of fluid overload secondary to decompensated systolic/ diastolic heart failure and missing dialysis. PLAN: 1. Acute systolic/diastolic CHF Plan: elevate head of bed to 30 degrees/ Is/OS, daily weights, fluid restriction to 2L or 67oz, salt restriction to 2G / f/u repeat Troponin, /because she does have some residual renal function I'll order lasix 60 IV now /suspect she is not on a beta oz, ACEI, ARB or ARNI because of her comor bidities 2. Back Pain May be due to arthritis or another process. Plan: Admit to medical floor/follow-up x-ray of the lumbar sacral spine/lidocaine patch and Tylenol / continue with gabapentin / f/u ESR, CRP 3 ESRD ( MWF via right IJ tunneled HD catheter) Plan: Nephrology consult 4. Cough, possibly due to Bronchitis vs Acute COPD ? One of the perioperative notes recorded a diagnosis COPD, but I am unable to find PFTs or documentation of this diagnosis in other consult notes or H&Ps There is no mention of emphysema on the most recent CT report in our system Plan: give 1 dose of Solu-Medrol now and levalbuterol nebulizers when ne cessary/ will hold home albuterol & request PFT reports from her PCP 5. Right toe ulcer. Plan: Continue with vancomycin/Wound Care 6. Chronic CAD Plan: Continue with atorvastatin 7. Hypothyroidism status post thyroidectomy Plan: Continue with levothyroxine 8. Paroxysmal atrial fibrillation/sick sinus syndrome (Elquis/dual-chamber pacemaker) Plan: Continue with Elquis and amiodarone 9. Rheumatoid arthritis. Plan: Continue with hydroxychloroquine 10. Type 2 diabetes. A1c 8.6 in November 2018 Plan: diabetic diet / f/u accuchecks & A1C / hypoglycemia protocol / sliding scale insulin / continue with detemir 20 units twice a day No need for DVT prophylaxis because she is on Elquis Disposition likely home after more than 2 midnight stay Vital Signs Vital Signs Date Time Temp Pulse Resp B/P (MAP) Pulse Ox O2 Delivery O2 Flow Rate FiO2 07/20/19 18:25 17 07/20/19 18:10 99.2 70 120/68 (85) 93 Nasal Cannula 2.0 Home Medications Scheduled Amiodarone HCl (Amiodarone HCl) 200 Mg Tab, 200 MG PO DAILY Apixaban (Eliquis) 5 Mg Tablet, 5 MG PO BID Atorvastatin Calcium (Atorvastatin Calcium) 20 Mg Tab, 20 MG PO QHS Cetirizine HCl (Cetirizine HCl) 10 Mg Tablet, 10 MG PO DAILY Gabapentin (Gabapentin) 100 Mg Cap, 100 MG PO DAILY Hydroxychloroquine Sulfate (Hydroxychloroquine Sulfate) 200 Mg Tab, 200 MG PO BID Insulin Aspart (Novolog Flexpen) 100 Unit/Ml Inj, 1 DOSE SC AC PER SLIDING SCALE Insulin Detemir (Levemir Flextouch) 100 Unit/Ml Inj, 20 UNIT SC BID Levothyroxine Sodium (Levoxyl) 150 Mcg Tablet, 150 MCG PO DAILY Mirtazapine (Mirtazapine) 15 Mg Tab.rapdis, 15 MG PO QHS Vancomycin Hcl (Vancomycin HCl) 125 Mg Capsule, 125 MG PO QID PICKED UP 07/07/19 FOR 8 DAYS Vit B Comp No.3/Folic/C/Biotin (Althea-Jett Rx Tablet) 1 Each Tablet, 1 TAB PO DAILY Scheduled PRN Acetaminophen (Tylenol Extra Strength) 500 Mg Tablet, 1,000 MG PO TID PRN for PAIN Albuterol Sulf (Albuterol Sulfate) 2.5 Mg/3 Ml Vial.neb, 2.5 MG INH Q6H PRN for SHORTNESS OF BREATH Albuterol Sulfate (Ventolin Hfa) 18 Gm Hfa.aer.ad, 2 PUFF INH Q4H PRN for SHORTNESS OF BREATH Benzonatate (Tessalon Perle) 100 Mg Capsule, 100 MG PO TID PRN for COUGH Carbamide Peroxide (Debrox) 15 Ml Drops, 1 DROP OU BID PRN for EARWAX Carboxymethyl/Glycerin/Poly80 (Refresh Optive Advanced Drops) 1 Claudia Claudia, 1 DROP OU QID PRN for DRY EYES Nystatin (Nystatin Powder) 15 Gm Powder, 1 DOSE TOP BID PRN for REDNESS/IRRITATION APPLY TO BREASTS AND ABDOMINAL FOLDS Allergies Coded Allergies: ENVIROMENTAL (Verified Allergy, Unknown, DUST, MILDEW, 06/26/19) TAPE (Unverified Allergy, Unknown, BLISTERS, 06/26/19) hydromorphone (Verified Adverse Reaction, Mild, ITCHING, 06/26/19) oxycodone (Verified Adverse Reaction, Mild, ITCHING, 06/26/19) A-FIB/CHADSVASC A-FIB History Current/History of A-Fib/PAF?: Yes Current PO Anticoag Therapy: Yes MARTINA NANCE MD Jul 20, 2019 19:26
[2019-07-20] MEDS ORDERED: FUROSEMIDE 100 MG/10 ML VIAL (J1940) IV ONE (19:30)
[2019-07-20 19:44] LABS: HEMATOCRIT 34.9 % (36.0-47.0); HEMOGLOBIN 11.1 g/dl (12.0-15.5); MEAN CORPUSCULAR HEMOGLOBIN 31.6 pg (27.0-33.0); MEAN CORPUSCULAR HGB CONC 31.8 g/dl (32.0-36.5); MEAN CORPUSCULAR VOLUME 99.4 fl (80.0-96.0); PLATELET COUNT, AUTOMATED 122 10^3/uL (150-450); RED BLOOD COUNT 3.51 10^6/uL (4.00-5.40); WHITE BLOOD COUNT 9.2 10^3/uL (4.0-10.0)
[2019-07-20] MEDS ORDERED: DEXTROSE 50% 50 ML SYRINGE IV PRN (19:45)
[2019-07-20] MEDS ORDERED: GLUCOSE 4 GM CHEW TABLET PO PRN (19:45)
[2019-07-20] MEDS ORDERED: GLUCAGON FOR INJ 1 MG VIAL (J1610) SC PRN (19:45)
[2019-07-20 20:00] VITALS: BP 133/71
[2019-07-20 20:14] LABS: ALBUMIN 2.9 GM/DL (3.2-5.2); BILIRUBIN,TOTAL 0.4 MG/DL (0.2-1.0); CALCIUM LEVEL 9.3 MG/DL (8.8-10.2); CREATININE FOR GFR 6.87 MG/DL (0.55-1.30); GLOMERULAR FILTRATION RATE 6.1 (>32); POTASSIUM SERUM 4.3 MEQ/L (3.5-5.1); TOTAL PROTEIN 6.6 GM/DL (6.4-8.2); TROPONIN I 0.09 NG/ML (< 0.10)
[2019-07-20] MEDS ORDERED: TESS100C PO (20:29)
[2019-07-20] MEDS ORDERED: VANC125C3 PO (20:29)
[2019-07-20] MEDS ORDERED: ALBUTEROL SULFATE 2.5 MG/0.5 ML INH NEB SOLN INH PRN (21:00)
[2019-07-20] MEDS ORDERED: VANCOMYCIN ORAL SOL 250MG/5ML ORAL SYRINGE PO SCH (21:00)
[2019-07-20] MEDS ORDERED: APIXABAN 2.5 MG TAB (ELIQUIS) PO SCH (21:00)
[2019-07-20] MEDS ORDERED: APIXABAN 5 MG TAB (ELIQUIS) PO SCH (21:00)
[2019-07-20] MEDS ORDERED: HumaLOG INSULIN (NovoLOG) PER UNIT SC SCH (21:00)
[2019-07-20] MEDS ORDERED: ACETAMINOPHEN 500 MG TAB PO PRN (21:00)
[2019-07-20] MEDS ORDERED: ATORVASTATIN 20 MG TAB PO SCH (21:00)
[2019-07-20] MEDS ORDERED: NYSTATIN 100,000 UNITS/GM TOPICAL PWD 15 GM TOP PRN (21:00)
[2019-07-20] MEDS ORDERED: LIDOCAINE 5% (LIDODERM) PATCH TD SCH (21:00)
[2019-07-20] MEDS ORDERED: LEVEMIR (INSULIN DETEMIR) 1 UNITS/0.01ML SC SCH (21:00)
[2019-07-20] MEDS ORDERED: ALBUTEROL 90 MCG/ACT 8GM HFA INHALER INH PRN (21:00)
[2019-07-20] MEDS ORDERED: MIRTAZAPINE 15 MG TAB PO SCH (21:00)
[2019-07-20] MEDS ORDERED: CARBAMIDE PEROXIDE 6.5% OTIC SOLN 15ML XX PRN (21:00)
[2019-07-20] MEDS ORDERED: HYDROXYCHLOROQUINE 200 MG TAB PO SCH (21:00)
[2019-07-20] MEDS: BENZONATATE 100 MG CAP PO SCH (21:35)
[2019-07-20] MEDS ORDERED: LEVALBUTEROL 1.25 MG/0.5 ML CONCENTRATE NEB INH PRN (23:45)
[2019-07-20 23:59] VITALS: BP 107/55
[2019-07-21] MEDS ORDERED: methylPREDNISolone INJ 125 MG/2 ML VIAL (J2930) IV ONE
[2019-07-21 04:00] VITALS: BP 135/69
[2019-07-21 05:30] LABS: HEMATOCRIT 32.8 % (36.0-47.0); MEAN CORPUSCULAR HGB CONC 30.5 g/dl (32.0-36.5); MEAN CORPUSCULAR VOLUME 101.5 fl (80.0-96.0); PLATELET COUNT, AUTOMATED 126 10^3/uL (150-450); RED BLOOD COUNT 3.23 10^6/uL (4.00-5.40); WHITE BLOOD COUNT 8.1 10^3/uL (4.0-10.0)
[2019-07-21] MEDS: BENZONATATE 100 MG CAP PO SCH (05:41)
[2019-07-21 05:57] LABS: CALCIUM LEVEL 8.4 MG/DL (8.8-10.2); CREATININE FOR GFR 7.04 MG/DL (0.55-1.30); HEMOGLOBIN A1c 9.8 %; POTASSIUM SERUM 5.6 MEQ/L (3.5-5.1)
[2019-07-21] MEDS ORDERED: LEVOTHYROXINE 150MCG TABLET (0.15MG) PO SCH (06:00)
[2019-07-21] MEDS ORDERED: HumaLOG INSULIN (NovoLOG) PER UNIT SC SCH (07:30)
--- NOTE | 2019-07-21 08:37 | REP ---
Lumbar spine series: Five views. History: Back pain. Findings: Five views of the lumbar spine demonstrate a fairly prominent vascular calcification. Normal caliber aorta. There are clips in right upper quadrant. There are metallic pins in the right hip and diffuse osteopenia is noted. Lumbar vertebral body heights are preserved. There is a 3 mm L5 S1 spondylolisthesis due to degenerative disc and osteoarthritic facet disease. The area of the pars interarticularis is not well seen on oblique views but I do not believe there is a pars defect. There is degenerative disc disease also noted L4-5 and L3-4 and L2-3 with disc space narrowing and osteophyte formation at each of these levels. Mild discogenic spurring is seen in the distal thoracic spine as well. There is advanced osteoarthritic facet disease at 5-1, 4-5, and to some degree at 3-4 bilaterally. No focal bony destructive lesion is seen. Sacrum and SI joints are intact. There is osteoarthritis of the hips bilaterally and chondrocalcinosis is seen in the right hip. Impression: Degenerative disc disease and osteoarthritic facet changes. Grade 1 3 mm L5-S1 degenerative spondylolisthesis. Electronically Signed by Brad Thomas MD 07/21/2019 05:12 P
[2019-07-21] MEDS ORDERED: NEPHRO-VIT TAB (NEPHROCAPS) PO SCH (09:00)
[2019-07-21] MEDS ORDERED: LEVEMIR (INSULIN DETEMIR) 1 UNITS/0.01ML SC SCH (09:00)
[2019-07-21] MEDS ORDERED: ENTER DRUG NAME HERE (PATIENT'S OWN MED) PO SCH (09:00)
[2019-07-21] MEDS ORDERED: **NOTE PATIENT COMMENT** MISC XX SCH (09:00)
[2019-07-21] MEDS ORDERED: AMIODARONE 200 MG TAB (PACERONE) PO SCH (09:00)
[2019-07-21] MEDS ORDERED: GABAPENTIN 100 MG CAP PO SCH (09:00)
[2019-07-21] MEDS ORDERED: CETIRIZINE (ZyrTEC) 10 MG TAB PO SCH (09:00)
[2019-07-21] MEDS ORDERED: APIXABAN 2.5 MG TAB (ELIQUIS) PO SCH (09:00)
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
--- NOTE | 2019-07-21 09:56 | RO ---
DATE OF PROCEDURE: 07/21/2019 INDICATION: Cardiac arrest with emergent need for vascular access. PROCEDURE: Left Femoral Triple Lumen Catheter Placement PROCEDURALIST: Dr. Alban Orlando, PGY-2 ATTENDING PHYSICIAN: Dr. Jeremy Rodarte in attendance ANESTHESIA: NONE DESCRIPTION OF PROCEDURE: Procedure summary: The patient was seen emergently at bedside secondary to cardiac arrest and was found to need vascular access. The patient's left femoral triangle was prepped with chlorhexidine scrub. My hands were washed immediately before the procedure. I had worn a surgical sterile gown and gloves. The patient had no pulse at the time, and the femoral vein was approximated using the femoral triangle and going in a medial to lateral direction. The introducer needle was inserted medial to the femoral artery and inferior to the inguinal crease and into the femoral vein. Venous blood was withdrawn, the syringe was removed, and a guidewire was advanced onto the introducer needle. A small incision was made in the skin surface with a scalpel, and the introducer needle was exchanged for a dilator over the guidewire. After appropriate dilation was obtained, the dilator was exchanged over the wire for a triple lumen venous catheter. The wire was removed, and the catheter was taped in place. The patient remained in cardiac arrest throughout the procedure. At the time of procedure completion, all ports were aspirated and flushed properly. YRN
--- NOTE | 2019-07-21 11:47 | DS.PDOC ---
Discharge Summary General Date of Admission Jul 20, 2019 at 18:31 Date of Discharge 07/21/19 Discharge Summary DISCHARGE SUMMARY/ NOTE Patient is an 80F with extensive medical history including ESRD on HD, combine HF EF 15-20% with dual chamber pacemaker, CAD, Hypothyroidism, Afib, Sick sinus syndrome with pacemaker, Rheumatoid arthritis, DM, and hx Diverticulitis is transferred from [facility]. Reportedly came in presented with back pain and was noted to be more SOB after missing HD and thought to be in HF exacerbation with BNP of 20,000 and was sent here to be evaluated and assess for HD. Patient was diuresed when arrived last night, K of 5.4 with no other significant electrolyte derangement otherwise, plan for nephrology evaluation this morning for possible HD. Troponin at .09 and remained negative on repeat. Patient came up from XR this morning and was noted to become unresponsive and a Max Cart was called. Chest compressions was performed along with getting intubated. Repeated attempts were unsuccessful and patient was pronounced. Patient's son Dayn was notified, does not wish to have an autopsy. Also discussed with Clay Molder button tacker who thought that given patient's extensive comorbidity, this was not an ME case. Patient was not seen by myself prior to event as patient is new to my service today. Time of : 9:05AM Vital Signs/I&Os Vital Signs Date Time Temp Pulse Resp B/P (MAP) Pulse Ox O2 Delivery O2 Flow Rate FiO2 07/21/19 05:39 95 Nasal Cannula 3.0 07/21/19 04:00 97.1 80 18 135/69 (91) I&O- Last 24 Hours up to 6 AM 07/21/19 06:00 Intake Total 0 ml Output Total 150 ml Balance -150 ml Laboratory Data Labs 24H Laboratory Tests 2 07/20/19 19:30: Nucleated Red Blood Cells % (auto) 0.0, Anion Gap 4L, Glomerular Filtration Rate 6.1L, Calcium Level 9.3, Total Bilirubin 0.4, Aspartate Amino Transf (AST/SGOT) 19, Alanine Aminotransferase (ALT/SGPT) 24, Alkaline Phosphatase 88, Troponin I 0.09, Total Protein 6.6, Albumin 2.9L, Albumin/Globulin Ratio 0.78L 07/20/19 20:04: Bedside Glucose (Misc Panel) 204H 07/20/19 22:33: Troponin I 0.09 07/21/19 05:09: Nucleated Red Blood Cells % (auto) 0.0, Anion Gap 2L, Glomerular Filtration Rate 6.0L, Calcium Level 8.4L, Erythrocyte Sedimentation Rate 56H, Estimated Mean Plasma Glucose 235H, Hemoglobin A1c 9.8, C-Reactive Protein, Quantitative 8.05H CBC/BMP Laboratory Tests 07/20/19 19:30 07/21/19 05:09 FSBS Laboratory Tests Test 07/20/19 20:04 Range/Units Bedside Glucose (Misc Panel) 204 83-110 MG/DL Discharge Medications Scheduled Amiodarone HCl (Amiodarone HCl) 200 Mg Tab, 200 MG PO DAILY, (Reported) Apixaban (Eliquis) 5 Mg Tablet, 5 MG PO BID, (Reported) Atorvastatin Calcium (Atorvastatin Calcium) 20 Mg Tab, 20 MG PO QHS, (Reported) Cetirizine HCl (Cetirizine HCl) 10 Mg Tablet, 10 MG PO DAILY, (Reported) Gabapentin (Gabapentin) 100 Mg Cap, 100 MG PO DAILY, (Reported) Hydroxychloroquine Sulfate (Hydroxychloroquine Sulfate) 200 Mg Tab, 200 MG PO BID, (Reported) Insulin Aspart (Novolog Flexpen) 100 Unit/Ml Inj, 1 DOSE SC AC, (Reported) PER SLIDING SCALE Insulin Detemir (Levemir Flextouch) 100 Unit/Ml Inj, 20 UNIT SC BID, (Reported) Levothyroxine Sodium (Levoxyl) 150 Mcg Tablet, 150 MCG PO DAILY, (Reported) Mirtazapine (Mirtazapine) 15 Mg Tab.rapdis, 15 MG PO QHS, (Reported) Vancomycin Hcl (Vancomycin HCl) 125 Mg Capsule, 125 MG PO QID, (Reported) PICKED UP 07/07/19 FOR 8 DAYS Vit B Comp No.3/Folic/C/Biotin (Althea-Jett Rx Tablet) 1 Each Tablet, 1 TAB PO DAILY, (Reported) Scheduled PRN Acetaminophen (Tylenol Extra Strength) 500 Mg Tablet, 1,000 MG PO TID PRN for PAIN, (Reported) Albuterol Sulf (Albuterol Sulfate) 2.5 Mg/3 Ml Vial.neb, 2.5 MG INH Q6H PRN for SHORTNESS OF BREATH, (Reported) Albuterol Sulfate (Ventolin Hfa) 18 Gm Hfa.aer.ad, 2 PUFF INH Q4H PRN for SHORTNESS OF BREATH, (Reported) Benzonatate (Tessalon Perle) 100 Mg Capsule, 100 MG PO TID PRN for COUGH, (Reported) Carbamide Peroxide (Debrox) 15 Ml Drops, 1 DROP OU BID PRN for EARWAX, (Reported) Carboxymethyl/Glycerin/Poly80 (Refresh Optive Advanced Drops) 1 Claudia Claudia, 1 DROP OU QID PRN for DRY EYES, (Reported) Nystatin (Nystatin Powder) 15 Gm Powder, 1 DOSE TOP BID PRN for REDNESS/IRRITATION, (Reported) APPLY TO BREASTS AND ABDOMINAL FOLDS Allergies Coded Allergies: ENVIROMENTAL (Verified Allergy, Unknown, DUST, MILDEW, 06/26/19) TAPE (Unverified Allergy, Unknown, BLISTERS, 06/26/19) hydromorphone (Verified Adverse Reaction, Mild, ITCHING, 06/26/19) oxycodone (Verified Adverse Reaction, Mild, ITCHING, 06/26/19) JOAQUIM REID MD Jul 21, 2019 11:47
== END 2019-07-21 14:45 | disposition expired | DRG 291 ==
LOC: M PCU 18:31
PROVIDERS: ADMIT Student in an Organized Health Care Education/Training Program; ATTEND Student in an Organized Health Care Education/Training Program
PROC: 06HN33Z Insertion of Infusion Device into Left Femoral Vein, Percutaneous Approach (ICD-10-PCS; principal; 2019-07-21)
DX: I13.2 Hypertensive heart and chronic kidney disease with heart failure and with stage 5 chronic kidney disease, or end stage renal disease (principal); I50.43 Acute on chronic combined systolic (congestive) and diastolic (congestive) heart failure; N18.6 End stage renal disease; J96.01 Acute respiratory failure with hypoxia; J44.1 Chronic obstructive pulmonary disease with (acute) exacerbation; Z99.2 Dependence on renal dialysis; Z95.0 Presence of cardiac pacemaker; I25.10 Atherosclerotic heart disease of native coronary artery without angina pectoris; E03.9 Hypothyroidism, unspecified; I49.5 Sick sinus syndrome; M06.9 Rheumatoid arthritis, unspecified; E11.22 Type 2 diabetes mellitus with diabetic chronic kidney disease; I48.0 Paroxysmal atrial fibrillation; M54.5 Low back pain; E11.621 Type 2 diabetes mellitus with foot ulcer; Z79.4 Long term (current) use of insulin; Z79.51 Long term (current) use of inhaled steroids; Z79.899 Other long term (current) drug therapy; Z88.5 Allergy status to narcotic agent; Z88.8 Allergy status to other drugs, medicaments and biological substances; Z91.09 Other allergy status, other than to drugs and biological substances